=== PATIENT | male | born 1990 | race Caucasian/White ===

== ENCOUNTER 2024-08-28 06:21 | Emergency (ER) | payer SELFPAY ==
[~2024-08-28] VITALS: Ht 188 cm; Wt 104.5 kg
--- NOTE | 2024-08-28 06:27 | ECG ---
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
[2024-08-28] MEDS ORDERED: DexAMETHasone SOD PHOS 10MG/1ML VIAL INJ PO ONE (07:00)
--- NOTE | 2024-08-28 07:00 | ED.PDOC ---
SOB-HPI HPI Comments 34Y M with PMHx asthma presents to ED via EMS for chief complaint SOB x this morning with cough x1week. Pt denies chest pain, abd pain, and n/v/d. Pt states everyone is sick at home. Pt attempted to use Albuterol inhaler this morning but the medication ran out. Upon EMS arrival on scene, SpO2 was 74% on RA. After a breathing treatment was administered, SpO2 increased to 87%. Upon ED arrival, SpO2 97% on 10L O2 via NRB. No other symptoms/history reported. Chief Complaint: Shortness of Breath Time Seen by MD: 06:35 Reviewed notes: Nurses Notes, Roving Machine Operator Notes, Medications, Allergies Information Source: Patient, Emergency Med Personnel Mode of Arrival: EMS Brought in by: EMS Severity: Moderate Timing: Hours Duration: Since onset Context: At Rest PE Risk Factors: None History of: Asthma Prehospital treatment: Breathing Tx, Oxygen Modifying Factors: Nothing Associated Signs and Symptoms: Cough Past Medical History PAST MEDICAL HISTORY: Asthma Surgical History: Denies all surgeries Family History Family History: Unknown Social History Smoker: Non-Smoker Alcohol: Denies ETOH Use Drugs: Denies Drug Use Lives In: Home Constitutional: denies: chills, diaphoresis, fatigue, fever, malaise, sweats, weakness, others EENTM: denies: blurred vision, double vision, ear bleeding, ear discharge, ear drainage, ear pain, ear ringing, eye pain, eye redness, hearing loss, mouth pain, mouth swelling, nasal discharge, nose bleeding, nose congestion, nose pain, photophobia, tearing, throat pain, throat swelling, voice changes, others Respiratory: reports: cough, shortness of breath, wheezing; denies: hemoptysis, orthopnea, SOB at rest, SOB with excertion, stridor, others Cardiovascular: denies: chest pain, dizzy spells, diaphoresis, Dyspnea on exertion, edema, irregular heart beat, left arm pain, lightheadedness, palpitations, PND, syncope, others Gastrointestinal: denies: abdomen distended, abdominal pain, blood streaked bowels, constipated, diarrhea, dysphagia, difficulty swallowing, hematemesis, melena, nausea, poor appetite, poor fluid intake, rectal bleeding, rectal pain, vomiting, others Genitourinary: denies: burning, dysuria, flank pain, frequency, hematuria, incontinence, penile discharge, penile sore, pain, testicle pain, testicle swelling, urgency, others Neurological: denies: dizziness, fainting, headache, left sided numbness, left sided weakness, numbness, paresthesia, pre-existing deficit, right sided numbness, right sided weakness, seizure, speech problems, tingling, tremors, weakness, others Musculoskeletal: denies: back pain, gout, joint pain, joint swelling, muscle pain, muscle stiffness, neck pain, others Integumetry: denies: bruises, change in color, change in hair/nails, dryness, laceration, lesions, lumps, rash, wounds, others Allergic/Immunocompromised: denies: Difficulty Healing, Frequent Infections, Hives, Itching, others Hematologic/Lymphatic: denies: anemia, blood clots, easy bleeding, easy bruising, swollen glands, others Endocrine: denies: excessive hunger, excessive sweating, excessive thirst, excessive urination, flushing, intolerance to cold, intolerance to heat, unexplained weight gain, unexplained weight loss, others Psychiatric: denies: anxiety, bipolar disorder, depression, hopeless, panic disorder, schizophrenia, sleepless, suicidal, others All Other Systems: Reviewed and Negative Physical Exam General Appearance: No Apparent Distress, Normal HEENT: Normal ENT Inspection, Pharynx Normal, TMs Normal Neck: Full Range of Motion, Non-Tender, Normal, Normal Inspection Respiratory: Chest Non-Tender, Lungs Clear, No Accessory Muscle Use, No Respiratory Distress, Normal Breath Sounds Cardiovascular: No Edema, No JVD, No Murmur, No Gallop, Normal Peripheral Pulses, Regular Rate/Rhythm Breast Exam: Deferred Gastrointestinal: No Organomegaly, Non Tender, No Pulsatile Mass, Normal Bowel Sounds, Soft Genitalia: Deferred Pelvic: Deferred Rectal: Deferred Extremities: No calf tenderness, Normal capillary refill, Normal inspection, Normal range of motion, Non-tender, No pedal edema Musculoskeletal : Apperance: Normal Neurologic: Alert, assurance manager II-XII nml as Tested, No Motor Deficits, Normal Affect, Normal Mood, No Sensory Deficits Cerebellar Function: NOT DONE Reflexes: NOT DONE Skin: Dry, Normal Color, Warm Lymphatic: No Adenopathy Was a procedure done? Was a procedure done?: No Differential Dx Differential Diagnosis: Asthma, Pneumonia, URI X-Ray, Labs, Meds, VS Vital Signs Date Time Temp Pulse Resp B/P (MAP) Pulse Ox O2 Delivery O2 Flow Rate FiO2 08/28/24 08:05 13 13 94 Nasal Cannula* 2 08/28/24 08:05 98.5 103 13 117/85 (96) 94 98.5 08/28/24 07:10 16 94 Nasal Cannula* 2 08/28/24 06:27 98.6 115 30 128/80 (96) 97 98.6 08/28/24 06:21 106 Lab Test 08/28/24 08:02 08/28/24 07:49 08/28/24 07:03 Range/Units Urine Color Colorless Yellow Urine Clarity Clear Clear Urine pH 5.5 5.0-9.0 Urine Specific [place] 1.010 1.001-1.035 Urine Protein Negative Negative Urine Ketones Negative Negative Urine Blood Negative Negative /uL Urine Nitrite Negative Negative Urine Bilirubin Negative Negative Urine Urobilinogen Normal Negative mg/dL Urine Leukocyte Esterase Negative Negative /uL Urine RBC <1 0 - 3 /hpf Urine Microscopic WBC < 1 0-3 /HPF Urine Squamous Epithelial Cells None seen <5 /hpf Urine Bacteria None seen None Seen /hpf Urine Glucose Normal Normal mg/dL Influenza Type A Antigen Negative Negative Influenza Type B Antigen Negative Negative SARS-CoV-2 Antigen (Rapid) Negative NEGATIVE White Blood Count 13.3 H 4.4-10.8 10^3/uL Red Blood Count 5.10 4.5-5.90 10^6/uL Hemoglobin 16.2 13.5-17.5 g/dL Hematocrit 45.6 41.0-53.0 % Mean Corpuscular Volume 89.3 80.0-100.0 fL Mean Corpuscular Hemoglobin 31.7 28.0-32.0 pg Mean Corpuscular Hemoglobin Concent 35.5 32.0-36.0 g/dL Red Cell Distribution Width 12.8 11.8-14.3 % Platelet Count 242 140-450 10^3/uL Mean Platelet Volume 8.5 6.9-10.8 fL Neutrophils (%) (Auto) 37.0-80.0 % Lymphocytes (%) (Auto) 10.0-50.0 % Monocytes (%) (Auto) 0.0-12.0 % Basophils (%) (Auto) 0.0-2.0 % Neutrophils # (Auto) 1.6-8.6 10 ^3/uL Lymphocytes # (Auto) 0.4-5.4 10 ^3/uL Monocytes # (Auto) 0-1.3 10 ^3/uL Differential Total Cells Counted 100.0 100 Neutrophils % (Manual) 62 37.0-80.0 Band Neutrophils % (Manual) 0 Lymphocytes % (Manual) 17 10.0-50.0 Monocytes % (Manual) 3 0-12 Eosinophils % (Manual) 18 H 0-7 Basophils % (Manual) 0 0.0-2.0 Metamyelocytes % (manual) 0 Myelocytes % (Manual) 0 Promyelocytes % (Manual) 0 Blast Cells % (Manual) 0 Reactive Lymphocytes 0 Platelet Estimate Adequate Sodium Level 137 136-145 mmol/L Potassium Level 4.3 3.5-5.1 mmol/L Chloride Level 104 98-107 mmol/L Carbon Dioxide Level 25 20-31 mmol/L Anion Gap 8 5-15 Blood Urea Nitrogen 13 9-23 mg/dL Creatinine 0.96 0.700-1.30 mg/dL Glomerular Filtration Rate Calc 106 >90 mL/min BUN/Creatinine Ratio 13.5 10.0-20.0 Serum Glucose 108 H 74-106 mg/dL Calcium Level 9.5 8.7-10.4 mg/dL Current Medications Medications (Trade) Dose Ordered Sig/[place] Route Start Time Stop Time Status Last Admin Albuterol (Ventolin Medneb) 5 mg ONCE ONCE NEB 08/28/24 07:00 08/28/24 07:01 DC 08/28/24 07:09 Ipratropium [place] (Atrovent Medneb) 0.5 mg ONCE ONCE NEB 08/28/24 07:00 08/28/24 07:01 DC 08/28/24 07:09 Dexamethasone Sodium Phosphate (Decadron Injection) 10 mg ONCE ONCE IV 08/28/24 08:00 08/28/24 08:01 DC 08/28/24 07:[address] [address] Ph: [phone] DIAGNOSTIC IMAGING Diagnostic Imaging Report : [id number] Signed PATIENT: ERIKA PURVIS ACCT: [id number] UNIT: [id number] : 1990 LOC: ER ROOM / BED: / AGE / SEX: 34 / M ADM STATUS: REG ER SERVICE ORDERING PHYSICIAN: FERMIN NOGUEIRA MD PROCEDURE(s): CXRP - CHEST PORTABLE REASON: sob ORDER NUMBER(s): [id number], ACCESSION NUMBER(s): [id number] EXAM: XR Chest, 1 View CLINICAL INDICATION: sob TECHNIQUE: Frontal view of the chest. COMPARISON: None FINDINGS: LUNGS AND PLEURAL SPACES: Unremarkable. No consolidation. No pneumothorax. HEART: Unremarkable. No cardiomegaly. MEDIASTINUM: Unremarkable. Normal mediastinal contour. BONES/JOINTS: Unremarkable. No acute fracture. OTHER FINDINGS: . None. IMPRESSION: No acute cardiopulmonary process. ATED BY: ERIKA WILSON MD DICTATED DATE/TIME: 08/28/24710 SIGNED BY: ERIKA WILSON MD SIGNED DATE/TIME: 08/28/24710 CC: Time of 1ST Reevaluation: 07:05 Reevaluation 1ST: Unchanged Patient Education/Counseling: Diagnosis, Treatment Family Education/Counseling: No Family Present Departure 1 Departure Time of Disposition: 09:42 (Patient had an acute asthma exacerbation. He is now breathing comfortably on room air with clear lungs. We will discharge patient home with outpatient follow up) Impression: Primary Impression: Asthma exacerbation Qualified Codes: J45.21 - Mild intermittent asthma with (acute) exacerbation Disposition: 01 HOME / SELF CARE / HOMELESS Condition: Stable Additional Instructions: You likely had a asthma exacerbation. You should use your inhaler as directed. Your prescribed steroids. Please take as directed. It is important to follow up with the regular doctor within 1 week. If your symptoms worsen or you have any other concerns please return to the emergency room. e-Prescriptions Prednisone (Prednisone) 20 Mg Tab 40 MG PO DAILY for 5 Days, #10 MG Prov: FERMIN NOGUEIRA MD 08/28/24 Discharged With: Self Critical Care Note Critical Care Time?: No Stability Stability form required: No Heart Score Heart Score: Heart Score Response (Comments) Value History N/A 0 EKG N/A 0 Age N/A 0 Risk Factors N/A 0 Troponin N/A 0 Total 0 I personally scribed for FERMNI NOGUEIRA MD ([email or web address]) on 08/28/24 at 07:00. Electronically submitted by Eden Velazco ([facility]). I personally scribed for FERMIN NOGUEIRA MD ([email or web address]) on 08/28/24 at 07:20. Electronically submitted by Eden Velazco ([email or web address]). FERMIN NOGUEIRA MD Aug 28, 2024 07:00
[2024-08-28] MEDS: IPRATROPIUM BROM 0.5 MG/2.5ML INH SOL NEB ONE (07:09)
[2024-08-28] MEDS: ALBUTEROL SULF 2.5 MG/0.5ML(0.5%) NEB SOLN NEB ONE (07:09)
--- NOTE | 2024-08-28 07:13 | DVH ---
EXAM: XR Chest, 1 View CLINICAL INDICATION: sob TECHNIQUE: Frontal view of the chest. COMPARISON: None FINDINGS: LUNGS AND PLEURAL SPACES: Unremarkable. No consolidation. No pneumothorax. HEART: Unremarkable. No cardiomegaly. MEDIASTINUM: Unremarkable. Normal mediastinal contour. BONES/JOINTS: Unremarkable. No acute fracture. OTHER FINDINGS: . None. IMPRESSION: No acute cardiopulmonary process.
[2024-08-28] MEDS: DexAMETHasone SOD PHOS 10MG/1ML VIAL INJ IV ONE (07:51)
[2024-08-28 07:53] LABS: Chloride 104 mmol/L (98-107); Potassium 4.3 mmol/L (3.5-5.1); Sodium 137 mmol/L (136-145)
[2024-08-28 07:54] LABS: Anion Gap 8 (5-15); Calcium 9.5 mg/dL (8.7-10.4); Carbon Dioxide 25 mmol/L (20-31); Hematocrit 45.6 % (41.0-53.0); Hemoglobin 16.2 g/dL (13.5-17.5); Mean Corpuscular Hemoglobin 31.7 pg (28.0-32.0); Mean Corpuscular Hgb Conc. 35.5 g/dL (32.0-36.0); Mean Corpuscular Volume 89.3 fL (80.0-100.0); Platelet Count (auto) 242 10^3/uL (140-450); Red Cell Distribution Width 12.8 % (11.8-14.3); White Blood Cell 13.3 10^3/uL (4.4-10.8)
[2024-08-28 07:59] LABS: BUN/Creatinine Ratio 13.5 (10.0-20.0); Blood Urea Nitrogen 13 mg/dL (9-23)
[2024-08-28 08:00] LABS: Glucose 108 mg/dL (74-106)
[2024-08-28 08:05] VITALS: PULSE 13; RESP 13; O2SAT 94
[2024-08-28 08:14] LABS: Band Neutrophils % (manual) 0; Basophils % (manual) 0 (0.0-2.0); Blast Cells 0; Metamyelocytes % 0; Myelocytes % 0; Promyelocytes % 0; Reactive Lymphocytes 0
[2024-08-28 08:20] LABS: Urine Bacteria None Seen /hpf (None Seen)
[2024-08-28 08:23] LABS: COVID19 ANTIGEN SOFIA FIA NEGATIVE (NEGATIVE); Rapid Influenza A Negative (Negative); Rapid Influenza B Negative (Negative)
[2024-08-28 08:41] LABS: Urine Blood Negative /uL (Negative); Urine Clarity Clear (Clear); Urine Color Colorless (Yellow); Urine Protein, UAD Negative (Negative); Urine Squamous Epithelial Cell None Seen /hpf (<5); Urine Urobilinogen Normal (Negative); Urine WBC < 1 /HPF (0-3); Urine pH 5.5 (5.0-9.0)
[2024-08-28 09:12] LABS: Eosinophils % (manual) 18 (0-7); Lymphocytes % (manual) 17 (10.0-50.0); Monocytes % (manual) 3 (0-12); Platelet Estimate Adequate
[2024-08-28] MEDS ORDERED: PRED20TA2 PO (09:43)
[2024-08-28 10:00] VITALS: PULSE 91
[2024-08-28 10:10] VITALS: BP 131/83; RESP 12; TEMP 98.5; O2SAT 93
== END 2024-08-28 10:49 | disposition home or self-care (01) ==
LOC: ER 06:21 → EDBD 06:21 → ER 10:49
DX: J45.901 Unspecified asthma with (acute) exacerbation (principal); Z20.822 Contact with and (suspected) exposure to COVID-19
CPT/HCPCS: 36415; 71045; 80048; 81001; 85007; 85027; 87426; 87804; 93005; 94640; 96374; 99285; J1100

== ENCOUNTER 2024-10-22 09:26 | Inpatient (IN) | payer MEDICAID, OTHER ==
[2024-10-22] VITALS (28 sets, daily range): BP systolic 108–174; BP diastolic 54–123; PULSE 97–135; RESP 18–25; TEMP 98.6–98.8; O2SAT 92–97
[~2024-10-22] VITALS: Ht 188 cm; Wt 101.4 kg
[~2024-10-22 09:26] MED LIST: PRED20TA2 PO
--- NOTE | 2024-10-22 09:34 | ED.PDOC ---
History of Present Illness HPI Comments 34-year-old male brought by paramedics because of shortness a breath. Patient states that he has been having shortness a breath for a week progressively getting worse. His brother got inhaler from [id number] for which he tried without any help. Patient states that he is unable to get air into his lungs without using his stomach. Last time he felt like this was in August prior to that has been 26 years. Denies use of cigarettes. Denies any other past medical history. Time Seen by MD: 09:28 Reviewed Notes: Nurses Notes, Medications, Allergies Allergies: Uncoded Allergies: EGGS (Allergy, Unknown, 08/28/24) Home Meds Active Scripts Prednisone (Prednisone) 20 Mg Tab, 40 MG PO DAILY for 5 Days, #10 MG Prov:FERMIN NOGUEIRA MD 08/28/24 Information Source: Patient, Emergency Med Personnel Mode of Arrival: EMS Severity: Moderate Timing: Days Duration: Since onset Past Medical History PAST MEDICAL HISTORY: Asthma Surgical History: Denies all surgeries Family History Family History: Unknown Social History Smoker: Non-Smoker Alcohol: Denies ETOH Use Drugs: Denies Drug Use Lives In: Home Constitutional: denies: chills, diaphoresis, fatigue, fever, malaise, sweats, weakness, others EENTM: denies: blurred vision, double vision, ear bleeding, ear discharge, ear drainage, ear pain, ear ringing, eye pain, eye redness, hearing loss, mouth pain, mouth swelling, nasal discharge, nose bleeding, nose congestion, nose pain, photophobia, tearing, throat pain, throat swelling, voice changes, others Respiratory: reports: shortness of breath; denies: cough, hemoptysis, orthopnea, SOB at rest, SOB with excertion, stridor, wheezing, others Cardiovascular: denies: chest pain, dizzy spells, diaphoresis, Dyspnea on exertion, edema, irregular heart beat, left arm pain, lightheadedness, palpitations, PND, syncope, others Gastrointestinal: denies: abdomen distended, abdominal pain, blood streaked bowels, constipated, diarrhea, dysphagia, difficulty swallowing, hematemesis, melena, nausea, poor appetite, poor fluid intake, rectal bleeding, rectal pain, vomiting, others Genitourinary: denies: burning, dysuria, flank pain, frequency, hematuria, incontinence, penile discharge, penile sore, pain, testicle pain, testicle swelling, urgency, others Neurological: denies: dizziness, fainting, headache, left sided numbness, left sided weakness, numbness, paresthesia, pre-existing deficit, right sided numbness, right sided weakness, seizure, speech problems, tingling, tremors, weakness, others Musculoskeletal: denies: back pain, gout, joint pain, joint swelling, muscle pain, muscle stiffness, neck pain, others Integumetry: denies: bruises, change in color, change in hair/nails, dryness, laceration, lesions, lumps, rash, wounds, others Allergic/Immunocompromised: denies: Difficulty Healing, Frequent Infections, Hives, Itching, others Hematologic/Lymphatic: denies: anemia, blood clots, easy bleeding, easy bruising, swollen glands, others Endocrine: denies: excessive hunger, excessive sweating, excessive thirst, excessive urination, flushing, intolerance to cold, intolerance to heat, unexplained weight gain, unexplained weight loss, others Psychiatric: denies: anxiety, bipolar disorder, depression, hopeless, panic disorder, schizophrenia, sleepless, suicidal, others Physical Exam General Appearance: Moderate Distress HEENT: Normal ENT Inspection, Pharynx Normal, TMs Normal Neck: Full Range of Motion, Non-Tender, Normal, Normal Inspection Respiratory: Accessory Muscle Use, Respiratory Distress, Wheezing Cardiovascular: No Edema, No JVD, No Murmur, No Gallop, Normal Peripheral Pulses, Regular Rate/Rhythm Breast Exam: Deferred Gastrointestinal: No Organomegaly, Non Tender, No Pulsatile Mass, Normal Bowel Sounds, Soft Genitalia: Deferred Pelvic: Deferred Rectal: Deferred Extremities: No calf tenderness, Normal capillary refill, Normal inspection, Normal range of motion, Non-tender, No pedal edema Musculoskeletal : Apperance: Normal Neurologic: Alert, punch molder II-XII nml as Tested, No Motor Deficits, Normal Affect, Normal Mood, No Sensory Deficits Cerebellar Function: NOT DONE Reflexes: NOT DONE Skin: Dry, Normal Color, Warm Peripheral Pulses: 3+ Radial (R), 3+ Radial (L) Lymphatic: No Adenopathy Was a procedure done? 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: Attending Physician Indication: Hypotension, CVP monitoring Room prepared for procedure: Yes Keno Attendant performed hand hygien: Yes Maximal sterile barrier precau: Mask/Eye shield, Sterile gown Skin Preparation: Chlorhexidine gluconate, Providine iodine Skin preparation completely dr: Yes Insertion site: Right, Internal jugular Central line catheter type: Fdl-[id number]-dkf dialysis Number of lumens: 3 Antiseptic ointment applied to: Yes Post Assessment: Chest X-Ray Intubation Indication: Respiratory Insufficiency Prep: Preoxygenation Pretreated with: Analgesia Medicated with: Vecuronium Intubation Approach: Orotracheal Intubation size: cm (8) EKG EKG : Pulse Rate (adult): 121 Cardiac Rhythm: ST Differential Dx Considerations may include: Asthma exacerbation X-Ray, Labs, Meds, VS Vital Signs Date Time Temp Pulse Resp B/P (MAP) Pulse Ox O2 Delivery O2 Flow Rate FiO2 10/22/24 10:45 176/126 10/22/24 10:43 135 18 174/123 (140) 97 100 10/22/24 10:42 206/95 10/22/24 09:53 24 96 Simple Mask* 8 60 10/22/24 09:42 98.9 120 24 120/81 (94) 97 98.9 10/22/24 09:34 121 10/22/24 09:31 121 Lab Test 10/22/24 11:02 10/22/24 09:45 Range/Units White Blood Count Pending Red Blood Count Pending Hemoglobin Pending Hematocrit Pending Mean Corpuscular Volume Pending Mean Corpuscular Hemoglobin Pending Mean Corpuscular Hemoglobin Concent Pending Red Cell Distribution Width Pending Platelet Count Pending Mean Platelet Volume Pending Neutrophils (%) (Auto) Pending Lymphocytes (%) (Auto) Pending Monocytes (%) (Auto) Pending Basophils (%) (Auto) Pending Neutrophils # (Auto) Pending Lymphocytes # (Auto) Pending Monocytes # (Auto) Pending Sodium Level Pending Potassium Level Pending Chloride Level Pending Carbon Dioxide Level Pending Anion Gap Pending Blood Urea Nitrogen Pending Creatinine Pending Glomerular Filtration Rate Calc Pending BUN/Creatinine Ratio Pending Serum Glucose Pending Lactic Acid Level Pending Calcium Level Pending Troponin I High Sensitivity Pending 5 </=54 ng/L Current Medications Medications (Trade) Dose Ordered Sig/[place] Route Start Time Stop Time Status Last Admin Magnesium Sulfate/ Dextrose 100 ml @ 100 mls/hr ONCE ONCE IV 10/22/24 09:45 10/22/24 10:44 DC 10/22/24 10:22 Albuterol (Ventolin Medneb) 5 mg ONCE ONCE NEB 10/22/24 09:45 10/22/24 09:46 DC 10/22/24 09:53 Ipratropium [place] (Atrovent Medneb) 0.5 mg ONCE ONCE NEB 10/22/24 09:45 10/22/24 09:46 DC 10/22/24 09:53 Methylprednisolone Sodium Succinate (Solu Medrol) 125 mg ONCE ONCE IV 10/22/24 09:45 10/22/24 09:46 DC 10/22/24 10:22 Midazolam HCl 50 ml @ 1 mls/hr Q24H IV 10/22/24 11:00 10/22/24 10:45 Etomidate 20 mg ONCE ONCE IV 10/22/24 11:00 10/22/24 11:01 DC 10/22/24 10:41 Rocuronium [place] 100 mg ONCE ONCE IV 10/22/24 11:00 10/22/24 11:01 DC 10/22/24 10:42 Patient alert. Complaining of shortness a breath. History of asthma. Placed on oxygen. Was given breathing treatment in the field. Started steroid in the ER. Was given breathing treatment in the ER. He is using his accessory muscles. Explained to the patient the treatment plan. Continue monitoring. After watching patient has been deteriorating pain Using accessory muscles. Had to intubate the patient. Explained to the patient prior to intubation. Possible sepsis. Was given Rocephin. Was given azithromycin. Time of 1ST Reevaluation: :33 Reevaluation 1ST: Unchanged Patient Education/Counseling: Diagnosis, Treatment, Prognosis Family Education/Counseling: No Family Present Sepsis Sepsis Reasesment Focused Exam Orders: Laboratory Tests 10/22/24 11:02: Departure 1 Departure Time of Disposition: : Impression: Primary Impression: Acute respiratory failure Qualified Codes: J96.01 - Acute respiratory failure with hypoxia Additional Impression: Asthma exacerbation Qualified Codes: J45.41 - Moderate persistent asthma with (acute) exacerbation Disposition: ADMITTED INPATIENT Admit to: Med Surg Condition: Guarded Critical Care Note Critical Care Time?: Yes (90 min-critical care time only) Critical care comment: Breathing treatment placed on oxygen Stability Stability form required: No Heart Score Heart Score: Heart Score Response (Comments) Value History Slightly Suspicious 0 EKG Normal 0 Age <45 0 Risk Factors No known risk factors 0 Troponin Normal limit 0 Total 0 IMTIAZ STONER MD October 22, 2024 09:34
--- NOTE | 2024-10-22 09:36 | ECG ---
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
[2024-10-22] MEDS: IPRATROPIUM BROM 0.5 MG/2.5ML INH SOL NEB ONE (09:53)
[2024-10-22] MEDS: ALBUTEROL SULF 2.5 MG/0.5ML(0.5%) NEB SOLN NEB ONE (09:53)
[2024-10-22] MEDS: MAGNESIUM SULFATE 1GM/100ML 100 ML IV ONE (10:22)
[2024-10-22] MEDS: methylPREDNISolone SOD SUCC 125 MG/2 ML VL IV ONE (10:22)
[2024-10-22] MEDS: ETOMIDATE (2MG/ML) 20ML VIAL IV ONE ×2 (10:41→10:51)
[2024-10-22] MEDS: ROCURONIUM 10MG/ML 10ML VIAL IV ONE ×3 (10:42→13:17)
[2024-10-22] MEDS: MIDAZOLAM DRIP 50 mg/50mL 50 ML IV SCH (10:45)
[2024-10-22] MEDS: MIDAZOLAM DRIP 50 mg/50mL 50 ML IV ONE ×4 (10:52→23:34)
[2024-10-22 11:36] LABS: Basophils # (auto) 0 10 ^3/uL (0-0.2); Basophils % (auto) 0.3 % (0.0-2.0); Eosinophils # (auto) 2.1 10 ^3/uL (0-0.8); Eosinophils % (auto) 11.9 % (0.0-7.0); Hematocrit 49.7 % (41.0-53.0); Hemoglobin 16.9 g/dL (13.5-17.5); Lymphocytes # (auto) 4.4 10 ^3/uL (0.4-5.4); Lymphocytes % (auto) 24.7 % (10.0-50.0); Mean Corpuscular Hemoglobin 30.6 pg (28.0-32.0); Mean Corpuscular Volume 90.1 fL (80.0-100.0); Monocytes # (auto) 0.7 10 ^3/uL (0-1.3); Neutrophils # (auto) 10.5 10 ^3/uL (1.6-8.6); Neutrophils % (auto) 59.1 % (37.0-80.0); Nucleated Red Blood Cells % 0.1 %; Platelet Count (auto) 266 10^3/uL (140-450); Red Blood Cells 5.52 10^6/uL (4.5-5.90); White Blood Cell 17.7 10^3/uL (4.4-10.8)
[2024-10-22] MEDS: PROPOFOL 100 ML IV SCH (11:45)
[2024-10-22 11:46] LABS: Chloride 105 mmol/L (98-107); Potassium 4.5 mmol/L (3.5-5.1); Sodium 141 mmol/L (136-145)
[2024-10-22 11:47] LABS: Anion Gap 9 (5-15); Calcium 9.2 mg/dL (8.7-10.4); Carbon Dioxide 27 mmol/L (20-31)
[2024-10-22] MEDS: PROPOFOL 100 ML IV ONE ×4 (11:50→22:22)
[2024-10-22 11:52] LABS: BUN/Creatinine Ratio 7.4 (10.0-20.0)
[2024-10-22 11:54] LABS: Blood Urea Nitrogen 7 mg/dL (9-23); Glucose 145 mg/dL (74-106)
--- NOTE | 2024-10-22 12:16 | DVH ---
XY CHEST PORTABLE, HISTORY: sob COMPARISON: XY CHEST PORTABLE on DOS: 08/28/24 XY CHEST PORTABLE on DOS: 08/28/24 TECHNICAL DATA: 1 view of the chest was obtained. FINDINGS: Lines and tubes: ET in the mid thoracic trachea, NG crosses midline, right CVC seen in the SVC. Cardiomediastinal silhouette: normal Pulmonary vasculature: normal Lung expansion: normal Lung airspace: normal Lung interstitium: normal Pleura: normal Pneumothorax: no Bones: Unremarkable Other: no IMPRESSION: ET in the mid thoracic trachea, NG crosses midline (can be advanced 8 cm), right CVC seen in the SVC.
[2024-10-22 12:17] LABS: Base Excess -6.2 mmol/L (-2.0-3.0)
[2024-10-22] MEDS: AZITHROMYCIN 500MG/ 250ML 250 ML IV ONE (12:43)
[2024-10-22] MEDS: cefTRIAXone 1GM/50ML D5W 50 ML IV ONE (12:44)
[2024-10-22] MEDS: SODIUM CHLORIDE 0.9% 1,000 ML IV ONE ×2 (12:44)
[2024-10-22] MEDS ORDERED: ONDANSETRON HCL 4 MG/2 ML VIAL IV PRN (13:30)
[2024-10-22] MEDS ORDERED: DOCUSATE SOD 100 MG CAP PO PRN (13:30)
[2024-10-22] MEDS ORDERED: ACETAMINOPHEN 325 MG TAB PO PRN (13:30)
--- NOTE | 2024-10-22 13:45 | DVHHP2 ---
History of Present Illness Reason for Visit: Shortness of breath History of Present Illness Sae Tidwell is a 34-year-old male with past medical history of asthma, who was brought in by EMS for shortness of breath. When patient arrived to the ER he was sitting the in the treatment area receiving a breathing treatment. He was having increased work of breathing, using accessory muscles, tripoding, and diaphoretic. He was placed on a non-rebreather mask, taken to bed, and was then intubated shortly after arriving in the bed. Family states that the patient had childhood asthma, but has not had a problem with his asthma for over 20 years until recently. In August the entire family got a cold. The sister states it hit him and her younger brother the worst. The patient was seen here in August for shortness of breath. He was given breathing treatments and prescriptions and sent home. She states he was doing better for a while but then his shortness of breath worsened. She also stated that he doesn't take the best care of him self and that he is a heavy whiskey drinker. She states he drinks at least 3 x week. Sometimes it is just a couple drinks and other times it is an entire bottle. Pulmonary: Asthma Past Surgical History: None Smoke: No ALCOHOL: heavy Drugs: None Lives: with Family Domestic Violence: Neg Review of Systems Constitutional: No: Fever, Chills, Sweats, Weakness, Malaise, Other Eyes: No: Pain, Vision change, Conjunctivae inflammation, Eyelid inflammation, Other, Redness ENT: No: Ear pain, Ear discharge, Nose pain, Nose discharge, Nose congestion, Mouth pain, Mouth swelling, Throat pain, Throat swelling, Other Respiratory: Cough, Shortness of breath, SOB with excertion, Wheezing; No: Dry, Hemoptysis, Pleuritic Pain, Sputum, Wheezing, Other Cardiovascular: No: Chest Pain, Palpitations, Orthopnea, Paroxysmal Noc. Dyspnea, Edema, Lt Headedness, Other Gastrointestinal: No: Nausea, Vomiting, Abdominal Pain, Diarrhea, Constipation, Melena, Hematochezia, Other Genitourinary: No Dysuria, No Frequency, No Incontinence, No Hematuria, No Retention, No Other Musculoskeletal: No: other, neck pain, shoulder pain, arm pain, back pain, hand pain, leg pain, foot pain Skin: No: Rash, Lesions, Jaundice, Bruising, Other Neurological: No: Weakness, Numbness, Incoordination, Change in speech, Confusion, Seizures, Other Allergies: Uncoded Allergies: EGGS (Allergy, Unknown, 08/28/24) Medications Current Medications Medications Dose Ordered Sig/Chencho Route Start Time Stop Time Status Last Admin Dose Admin Midazolam HCl 50 ml @ 1 mls/hr Q24H IV 10/22/24 11:00 10/22/24 10:45 1 MLS/HR Propofol 100 ml @ 3.12 mls/hr Q24H IV 10/22/24 11:45 10/22/24 11:45 3.12 MLS/HR Ondansetron HCl 4 mg Q4HP PRN IV 10/22/24 13:30 UNV Docusate Sodium 100 mg BIDPRN PRN PO 10/22/24 13:30 UNV Acetaminophen 650 mg Q6HP PRN PO 10/22/24 13:30 UNV Ipratropium [place] 0.5 mg Q6HR NEB 10/22/24 18:00 UNV Albuterol 2.5 mg Q6HR NEB 10/22/24 18:00 UNV Exam Vital Signs Vital Signs Date Time Temp Pulse Resp B/P (MAP) Pulse Ox O2 Delivery O2 Flow Rate FiO2 10/22/24 13:17 130/69 10/22/24 12:00 116 10/22/24 10:43 18 97 100 10/22/24 09:53 Simple Mask* 8 10/22/24 09:42 98.9 98.9 General Appearance: Other (Intubated and sedated) Respiratory: Other (Intubated, tight and wheezing) Cardiovascular: Other (ST) Abdominal: Normal bowel sounds, Soft Extremities: No clubbing, No cyanosis, Normal pulses Skin: No rashes, No breakdown, No significant lesion Neuro: Other (sedated) Labs/Xrays Labs Test 10/22/24 12:52 10/22/24 12:12 10/22/24 11:02 Range/Units Blood Gas Specimen Type Arterial Blood Gas Sample Site Left radial Blood Gas Patient Temperature 37.0 Arterial Blood Date Drawn [id number] Arterial Blood pH 7.147 *L 7.350-7.450 Arterial Blood Partial Pressure CO2 74.4 *H 35.0-48.0 mmHg Arterial Blood Partial Pressure O2 > 533.6 *H 83.0-108.0 mmHg Arterial Blood HCO3 25.2 21.0-28.0 mmol/L Arterial Blood Oxygen Saturation 99.9 H 94.0-98.0 % Arterial Blood Base Excess -6.2 L -2.0-3.0 mmol/L Arterial Blood Oxyhemoglobin 98.6 H 94.0-98.0 % Arterial Blood Carboxyhemoglobin 0.3 L 0.5-1.5 % Arterial Blood Methemoglobin 1.0 0.0-1.5 % Zuhair Test Modified Blood Gas Total Hemoglobin 18.60 *H 13.5-17.5 g/dL Blood Gas Set Respiration Rate 18.0 Blood Gas Modality Vent - ac FiO2 % 100.0 Blood Gas Tidal Volume 600.0 Blood Gas PEEP or CPAP 5.0 Blood Gas Critical Value Read Back Yes Blood Gas Notified Whom nellie Ochoa md Blood Gas Notified Time [id number] Blood Gas Notified By Renyn segal i. White Blood Count 17.7 H 4.4-10.8 10^3/uL Red Blood Count 5.52 4.5-5.90 10^6/uL Hemoglobin 16.9 13.5-17.5 g/dL Hematocrit 49.7 41.0-53.0 % Mean Corpuscular Volume 90.1 80.0-100.0 fL Mean Corpuscular Hemoglobin 30.6 28.0-32.0 pg Mean Corpuscular Hemoglobin Concent 34.0 32.0-36.0 g/dL Red Cell Distribution Width 13.0 11.8-14.3 % Platelet Count 266 140-450 10^3/uL Mean Platelet Volume 8.2 6.9-10.8 fL Neutrophils (%) (Auto) 59.1 37.0-80.0 % Lymphocytes (%) (Auto) 24.7 10.0-50.0 % Monocytes (%) (Auto) 4.0 0.0-12.0 % Eosinophils (%) (Auto) 11.9 H 0.0-7.0 % Basophils (%) (Auto) 0.3 0.0-2.0 % Neutrophils # (Auto) 10.5 H 1.6-8.6 10 ^3/uL Lymphocytes # (Auto) 4.4 0.4-5.4 10 ^3/uL Monocytes # (Auto) 0.7 0-1.3 10 ^3/uL Eosinophils # (Auto) 2.1 H 0-0.8 10 ^3/uL Basophils # (Auto) 0 0-0.2 10 ^3/uL Nucleated Red Blood Cells 0.1 % Sodium Level 141 136-145 mmol/L Potassium Level 4.5 3.5-5.1 mmol/L Chloride Level 105 98-107 mmol/L Carbon Dioxide Level 27 20-31 mmol/L Anion Gap 9 5-15 Blood Urea Nitrogen 7 L 9-23 mg/dL Creatinine 0.95 0.700-1.30 mg/dL Glomerular Filtration Rate Calc 108 >90 mL/min BUN/Creatinine Ratio 7.4 L 10.0-20.0 Serum Glucose 145 H 74-106 mg/dL Lactic Acid Level 1.9 0.4-2.0 mmol/L Calcium Level 9.2 8.7-10.4 mg/dL XY CHEST PORTABLE, FINDINGS: Lines and tubes: ET in the mid thoracic trachea, NG crosses midline, right CVC seen in the SVC. Cardiomediastinal silhouette: normal Pulmonary vasculature: normal Lung expansion: normal Lung airspace: normal Lung interstitium: normal Pleura: normal Pneumothorax: no Bones: Unremarkable Other: no IMPRESSION: ET in the mid thoracic trachea, NG crosses midline (can be advanced 8 cm), right CVC seen in the SVC. Assessment/Plan Assessment/Plan Assessment: Asthma exacerbation, Acute respiratory failure, ETOH dependance, Leukocytosis, Plan: Admit to ICU, Mechanical ventilation, Pulmonology consult, IV antibiotics, Versed and propofol for sedation as needed, COVID and Influenza A&B swab, UDS, Serum alcohol level, Portable x-ray in am, ABG in am, CT chest, Plan discussed with: Patient, Other (Sister) My Orders Orders - RYAN SAENZ RECORDS TECHNICIAN Procedure Category Date Status Time Ventilator Orders RT 10/22/24 Transmitted 12:30 Abg W/ Co-Ox RT 10/22/24 Logged 13:30 Respiratory Misc. RT 10/22/24 Transmitted Order 12:30 Drug Screen LAB 10/22/24 Logged 12:39 Blood Alcohol LAB 10/22/24 In Process 12:39 Covid19 Antigen Sarah LAB 10/22/24 Logged Rapid Influenza A&B LAB 10/22/24 Logged 12:42 Admit ADMIT 10/22/24 Transmitted 13:17 Code Status CODE 10/22/24 Transmitted 13:17 Ondansetron Hcl PHA 10/22/24 Logged (Zofran) 13:30 Docusate Sodium PHA 10/22/24 Logged Capsule (Colace 13:30 Complete Blood Count LAB 10/23/24 Verified 04:00 Comprehensive LAB 10/23/24 Verified Metabolic Panel 04:00 Npo (Nothing By DIET 10/22/24 Transmitted Mouth) Diet Lunch Condition: Critical DEVEN 10/22/24 Transmitted 13:17 Acetaminophen Tablet PHA 10/22/24 Logged (Tylenol Tablet) 13:30 Ipratropium Medneb PHA 10/22/24 Logged (Atrovent Medneb) 18:00 Albuterol Medneb PHA 10/22/24 Logged (Ventolin Medneb) 18:00 Date of Service: October 22, 2024 Billing Provider: RYAN SAENZ Common Visit Codes: [id number] INP/OBS CARE (HIGH) RYAN SAENZ October 22, 2024 13:45
[2024-10-22 14:23] LABS: Benzodiazephine Screen, Urine Neg (NEGATIVE); Opiate Scree,Urine Neg (NEGATIVE)
[2024-10-22 14:26] LABS: Amphetamine Screen, Urine Neg (NEGATIVE); Barbiturate Scree,Urine Neg (NEGATIVE); Cannabinoid Screen, Urine Neg (NEGATIVE); Cocaine Screen, Urine Neg (NEGATIVE); Phencyclidine Screen, Urine Neg (NEGATIVE)
[2024-10-22 15:06] LABS: Base Excess -10.1 mmol/L (-2.0-3.0)
[2024-10-22 15:06] LABS: Rapid Influenza A Negative (Negative); Rapid Influenza B Negative (Negative)
[2024-10-22 15:07] LABS: COVID19 ANTIGEN SOFIA FIA NEGATIVE (NEGATIVE)
[2024-10-22] MEDS ORDERED: VANCOMYCIN PER PHARMACY 0 MG IV SCH (15:45)
--- NOTE | 2024-10-22 15:45 | DVH ---
INDICATION: sob TECHNIQUE: Frontal view of the chest. COMPARISON: XY CHEST PORTABLE on DOS: 10/22/24, XY CHEST PORTABLE on DOS: 08/28/24, XY CHEST PORTABLE on DOS: 10/22/24 FINDINGS: Lines and tubes: ET in the mid thoracic trachea, NG crosses midline, right CVC seen in the SVC. Cardiomediastinal silhouette: normal Pulmonary vasculature: normal Lung expansion: normal Lung airspace: normal Lung interstitium: normal Pleura: normal Pneumothorax: no Bones: Unremarkable Other: no IMPRESSION: ET in the mid thoracic trachea, NG crosses midline (can be advanced 8 cm), right CVC seen in the SVC.
[2024-10-22] MEDS: SODIUM BICARB 8.4% 50Meq/50ml SYR INJ ONE (16:49)
[2024-10-22 17:09] LABS: Base Excess -6.2 mmol/L (-2.0-3.0)
[2024-10-22] MEDS: SODIUM BICARB 8.4% 50Meq/50ml SYR Vial IV ONE (17:35)
[2024-10-22] MEDS ORDERED: IPRATROPIUM BROM 0.5 MG/2.5ML INH SOL NEB SCH (18:00)
[2024-10-22] MEDS ORDERED: ALBUTEROL SULF 2.5 MG/0.5ML(0.5%) NEB SOLN NEB SCH (18:00)
[2024-10-22] MEDS: VANCOMYCIN 1GM/200ML PM 250 ML IV SCH (18:09)
[2024-10-22] MEDS: IPRATROPIUM BROM 0.5 MG/2.5ML INH SOL NEB SCH (18:26)
[2024-10-22] MEDS: ALBUTEROL SULF 2.5 MG/0.5ML(0.5%) NEB SOLN NEB SCH (18:26)
--- NOTE | 2024-10-22 19:47 | DVHINCON2 ---
Date of service: October 22, 2024 Referring Physician Darlene Agudelo NP Reason for Consultation Acute respiratory failure History of Present Illness History Source: Patient, RN Notes, MD Notes Exam Limitations: Clinical condition HPI Patient is a 34-year old gentleman with a history of asthma who presented with shortness of breath and wheezing. Was seen in the emergency room where he was found to desaturate and have increased work of breathing and the patient was intubated. Pulmonology was consulted for to assist in management. Home Meds Active Scripts Prednisone (Prednisone) 20 Mg Tab, 40 MG PO DAILY for 5 Days, #10 MG Prov:FERMIN NOGUEIRA MD 08/28/24 Past Medical History Cardiac: No pertinent Hx Pulmonary: Asthma Central Nervous System: No pertinent Hx GI: No pertinent Hx Hemotology/Oncology: No pertinent Hx Hepatobiliary: No pertinent Hx Psychiatric: No pertinent Hx Musculoskeletal: No pertinent Hx Rheumotologic: No pertinent Hx Infectious Disease: No peritnent Hx ENT: No pertinent Hx Renal/: No pertinent Hx Endocrine: No pertinent Hx Dermatology: No pertinent Hx Past Surgical History: No pertinent Hx Family History: No pertinent Hx Smoker: No Hx (Negative) Alocohol: None Drugs: None Lives with: With family Domestic Violence: Neg H&P Exam Vital Signs Vital Signs Date Time Temp Pulse Resp B/P (MAP) Pulse Ox O2 Delivery O2 Flow Rate FiO2 10/22/24 19:00 137/69 10/22/24 19:00 98.6 109 24 94 98.6 10/22/24 18:26 50 10/22/24 11:30 Mechanical Ventilator+ 10/22/24 09:53 8 General Appeara: Well developed, Well nourished, Normal Appearance Head Exam: Normal inspection Neck Exam: Normal inspection, Non-tender, Normal alignment Eye Exam: bilateral eye Normal inspection, bilateral eye PERRL, bilateral eye EOMI Ear Exam: bilateral ear Auricle normal, bilateral ear Canal normal, bilateral ear TM normal Nasal Exam: Normal inspection Mouth: Normal Inspection Pulmonary/Respiratory: Decreased breath sounds Cardiovascular/Chest: Normal inspection Peripheral Pulses: 4+ Radial (R), 4+ Radial (L), 4+ Brachial (R), 4+ Brachial (L) Abdominal Exam: Normal bowel sounds Labs/Xrays Labs Test 10/22/24 17:00 10/22/24 14:00 10/22/24 12:52 10/22/24 12:30 Range/Units Blood Gas Specimen Type Arterial Blood Gas Sample Site Left radial Blood Gas Patient Temperature 37.0 Arterial Blood Date Drawn [id number] Arterial Blood pH 7.125 *L 7.350-7.450 Arterial Blood Partial Pressure CO2 78.8 *H 35.0-48.0 mmHg Arterial Blood Partial Pressure O2 93.0 83.0-108.0 mmHg Arterial Blood HCO3 25.3 21.0-28.0 mmol/L Arterial Blood Oxygen Saturation 95.8 94.0-98.0 % Arterial Blood Base Excess -6.2 L -2.0-3.0 mmol/L Arterial Blood Oxyhemoglobin 94.5 94.0-98.0 % Arterial Blood Carboxyhemoglobin 0.7 0.5-1.5 % Arterial Blood Methemoglobin 0.7 0.0-1.5 % Zuhair Test Modified Blood Gas Total Hemoglobin 16.60 13.5-17.5 g/dL Blood Gas Set Respiration Rate 24.0 Blood Gas Modality Vent - p/c FiO2 % 50.0 Blood Gas PEEP or CPAP 5.0 Blood Gas Critical Value Read Back Yes Blood Gas Notified Whom claude Puga md Blood Gas Notified Time [id number] Blood Gas Notified By Renny segal i. Influenza Type A Antigen Negative Negative Influenza Type B Antigen Negative Negative SARS-CoV-2 Antigen (Rapid) Negative NEGATIVE Troponin I High Sensitivity 11 </=54 ng/L Plasma/Serum Blood Alcohol < 3.0 <10 mg/dL Urine Opiates Screen Neg NEGATIVE Urine Fentanyl Screen Neg NEGATIVE Urine Barbiturates Screen Neg NEGATIVE Urine Phencyclidine Screen Neg NEGATIVE Urine Amphetamines Screen Neg NEGATIVE Urine Benzodiazepines Screen Neg NEGATIVE Urine Cocaine Screen Neg NEGATIVE Urine Cannabinoids Screen Neg NEGATIVE Test 10/22/24 12:12 10/22/24 11:02 Range/Units Blood Gas Tidal Volume 600.0 White Blood Count 17.7 H 4.4-10.8 10^3/uL Red Blood Count 5.52 4.5-5.90 10^6/uL Hemoglobin 16.9 13.5-17.5 g/dL Hematocrit 49.7 41.0-53.0 % Mean Corpuscular Volume 90.1 80.0-100.0 fL Mean Corpuscular Hemoglobin 30.6 28.0-32.0 pg Mean Corpuscular Hemoglobin Concent 34.0 32.0-36.0 g/dL Red Cell Distribution Width 13.0 11.8-14.3 % Platelet Count 266 140-450 10^3/uL Mean Platelet Volume 8.2 6.9-10.8 fL Neutrophils (%) (Auto) 59.1 37.0-80.0 % Lymphocytes (%) (Auto) 24.7 10.0-50.0 % Monocytes (%) (Auto) 4.0 0.0-12.0 % Eosinophils (%) (Auto) 11.9 H 0.0-7.0 % Basophils (%) (Auto) 0.3 0.0-2.0 % Neutrophils # (Auto) 10.5 H 1.6-8.6 10 ^3/uL Lymphocytes # (Auto) 4.4 0.4-5.4 10 ^3/uL Monocytes # (Auto) 0.7 0-1.3 10 ^3/uL Eosinophils # (Auto) 2.1 H 0-0.8 10 ^3/uL Basophils # (Auto) 0 0-0.2 10 ^3/uL Nucleated Red Blood Cells 0.1 % Sodium Level 141 136-145 mmol/L Potassium Level 4.5 3.5-5.1 mmol/L Chloride Level 105 98-107 mmol/L Carbon Dioxide Level 27 20-31 mmol/L Anion Gap 9 5-15 Blood Urea Nitrogen 7 L 9-23 mg/dL Creatinine 0.95 0.700-1.30 mg/dL Glomerular Filtration Rate Calc 108 >90 mL/min BUN/Creatinine Ratio 7.4 L 10.0-20.0 Serum Glucose 145 H 74-106 mg/dL Lactic Acid Level 1.9 0.4-2.0 mmol/L Calcium Level 9.2 8.7-10.4 mg/dL Assessment/Plan Plan Impression Acute hypoxemic respiratory failure Acute asthma attack Alcohol abuse Atelectasis Patient seen and examined in ER Events On mechanical ventilation S/p intubation PEEP 5, FiO2 30% Sedated with Propofol and Versed Labs and imaging reviewed White count elevated at 24 Chest x-ray unremarkable ABG reviewed pH 7.08, pCO2 74, pO2 95 Management Vent support Titrate to maintain sats 90% or above Sedation for vent synchrony Antibiotics Obtain cultures Bronchodilators Steroids Solumedrol 80mg IV TID Monitor renal function Monitor electrolytes Supplement as needed Pressors as needed for hemodynamic support To maintain a mean arterial pressure of 65 mmHg Consider Heliox therapy DVT prophylaxis Critical care time 35 minutes Plan discussed with: Other (Rn) ALLEN PUGA MD October 22, 2024 19:47
[2024-10-22] MEDS: FOLIC ACID 1 MG, MULTIPLE VITAMIN 10 ML, MAGNESIUM SULF SDV 50% 8 MEQ, THIAMINE INJ 100... INJ SCH (21:08)
[2024-10-22] MEDS: methylPREDNISolone SOD SUCC 40 MG/ML VL IV SCH (21:11)
[2024-10-22] MEDS ORDERED: methylPREDNISolone SOD SUCC 40 MG/ML VL IV SCH (22:00)
[2024-10-23] VITALS (108 sets, daily range): BP systolic 104–143; BP diastolic 42–71; PULSE 86–116; RESP 11–26; TEMP 97.5–99.7; O2SAT 91–97
--- NOTE | 2024-10-23 01:24 | DVH ---
CT HEAD WITHOUT CONTRAST INDICATION: elevated BP COMPARISON: None TECHNIQUE: CT of the head without intravenous contrast. RADIATION DOSE: CTDIvol: mGy, DLP: mGy*cm FINDINGS: Study is mildly decreased by patient motion artifact. There is no evidence of intracranial hemorrhage, infarct, extra-axial collection, mass effect, midli ne shift, herniation or hydrocephalus. The ventricles, sulci and cisterns are normal. Visualized para nasal sinuses and mastoid air cells are clear. Soft tissues and osseous structures are unremarkable. IMPRESSION: No intracranial abnormality identified.
[2024-10-23] MEDS: VANCOMYCIN 1.25GM/250ML 250 ML IV SCH (01:38)
[2024-10-23] MEDS: PROPOFOL 100 ML IV SCH (01:39)
[2024-10-23] MEDS: MIDAZOLAM DRIP 50 mg/50mL 50 ML IV SCH (02:43)
[2024-10-23 03:36] LABS: Base Excess 0.5 mmol/L (-2.0-3.0)
--- NOTE | 2024-10-23 04:15 | DVH ---
Procedure: CT CHEST WITHOUT CONTRAST Reason for study/Clinical History: Intubation/SOB Comparison Study: Chest radiograph performed on 10/22/2024 Exam Date: 10/23/2024 12:47 AM TECHNIQUE: Multidetector CT of the chest was performed from the lung apices to the upper abdomen with out the use of intravenous contract. Coronal and sagittal multiplanar reformats were performed. Radiation Dose Information: CT Dose: CTDI volume is 62.8 mGy. Dose-length product is 1004.5 mGy*cm The dose indicators for CT are the volume Computed Tomography (CT) Dose Index (CTDIvol) and the Dose Length Product (DLP), and are measured in units of mGy and mGy-cm, respectively. These indicators are not patient dose, but values generated from the CT scanner acquisition factors. The report includes radiation exposure data for exposures received during this examination. FINDINGS: Support lines and tubes : Endotracheal tube terminates above the rafa. The enteric tube terminates in the stomach. Lower neck: Normal thyroid. Lungs: No focal consolidation, pleural effusion or pneumothorax. Heart/Vascular Structures: Normal heart size. No pericardial effusion. Lymph Nodes: No adenopathy Pleura: No pleural effusion or significant pneumothorax. Musculoskeletal: No acute osseous abnormality. Soft tissues: Normal. Upper abdomen: Limited portions of the upper abdomen are unremarkable. IMPRESSION: 1. No acute intrathoracic abnormality. Radiation optimization: All CT scans at this facility use at least one of these dose optimization nancy hniques: automated exposure control mA and/or kV adjustment per patient size (includes targeted exam s where dose is matched to clinical indication) or iterative reconstruction.
[2024-10-23 04:47] LABS: Base Excess -1.1 mmol/L (-2.0-3.0)
[2024-10-23 06:03] LABS: Basophils # (auto) 0 10 ^3/uL (0-0.2); Basophils % (auto) 0.1 % (0.0-2.0); Eosinophils # (auto) 0 10 ^3/uL (0-0.8); Hematocrit 40.8 % (41.0-53.0); Lymphocytes # (auto) 1.2 10 ^3/uL (0.4-5.4); Lymphocytes % (auto) 7.7 % (10.0-50.0); Mean Corpuscular Hemoglobin 30.7 pg (28.0-32.0); Mean Corpuscular Hgb Conc. 34.3 g/dL (32.0-36.0); Mean Corpuscular Volume 89.4 fL (80.0-100.0); Monocytes # (auto) 0.4 10 ^3/uL (0-1.3); Monocytes % (auto) 2.5 % (0.0-12.0); Neutrophils # (auto) 14.2 10 ^3/uL (1.6-8.6); Neutrophils % (auto) 89.7 % (37.0-80.0); Nucleated Red Blood Cells % 0.1 %; Platelet Count (auto) 184 10^3/uL (140-450); Red Blood Cells 4.56 10^6/uL (4.5-5.90); Red Cell Distribution Width 12.8 % (11.8-14.3); White Blood Cell 15.9 10^3/uL (4.4-10.8)
[2024-10-23] MEDS: IPRATROPIUM BROM 0.5 MG/2.5ML INH SOL NEB SCH (06:08)
[2024-10-23] MEDS: ALBUTEROL SULF 2.5 MG/0.5ML(0.5%) NEB SOLN NEB SCH (06:08)
[2024-10-23 06:12] LABS: Albumin 4.2 g/dL (3.2-4.8); Alkaline Phosphatase 71 U/L (46-116); Anion Gap 6 (5-15); Aspartate Aminotransferase 30 U/L (13-40); BUN/Creatinine Ratio 8.4 (10.0-20.0); Carbon Dioxide 30 mmol/L (20-31); Chloride 101 mmol/L (98-107); Potassium 4.5 mmol/L (3.5-5.1); Sodium 137 mmol/L (136-145); Total Protein 6.9 g/dL (5.7-8.2)
[2024-10-23 06:13] LABS: Bilirubin, Total 0.5 mg/dL (0.2-1.0)
[2024-10-23 06:14] LABS: Alanine Aminotransferase 49 U/L (7-40); Blood Urea Nitrogen 8 mg/dL (9-23); Glucose 157 mg/dL (74-106)
--- NOTE | 2024-10-23 07:03 | DVH ---
EXAM: XR Chest, 1 View CLINICAL INDICATION: INTUBATED TECHNIQUE: Frontal view of the chest. COMPARISON: XY CHEST PORTABLE on DOS: 10/22/24, XY CHEST PORTABLE on DOS: 10/22/24, XY CHEST PORTABLE on DOS: 08/28/24 FINDINGS: LUNGS AND PLEURAL SPACES: Right basilar atelectasis or pneumonia. No pneumothorax. HEART: Unremarkable. No cardiomegaly. MEDIASTINUM: Unremarkable. Normal mediastinal contour. BONES/JOINTS: Unremarkable. No acute fracture. TUBES, LINES AND DEVICES: Right internal jugular central venous catheter tip in the superior vena c deep. The endotracheal tube (ETT) is in satisfactory position. Enteric tube tip in the stomach. OTHER FINDINGS: . . IMPRESSION: Right basilar atelectasis or pneumonia.
[2024-10-23] MEDS: cefTRIAXone 1GM/50ML D5W 50 ML IV SCH (09:56)
[2024-10-23] MEDS: fentaNYL Drip 2500mCg/250mlNS 250 ML IV SCH (11:01)
--- NOTE | 2024-10-23 13:28 | DVHPN2 ---
Progress Note - Dictate Date Seen: October 23, 2024 Has the PT tested + for MRSA If YES, has PT been informed?: No Medical Necessity Reason Pt with a Central, PICC or Fol: No vital signs Vital Sign Date Time Temp Pulse Resp B/P (MAP) Pulse Ox O2 Delivery O2 Flow Rate FiO2 10/23/24 12:04 99 24 125/61 (82) 96 50 10/23/24 12:00 Mechanical Ventilator+ 10/23/24 09:15 98.4 98.4 10/22/24 09:53 8 Total Intake and Output 10/22/24 10/22/24 10/23/24 15:00 23:00 07:00 Intake Total 1400 ml 731.0 ml 1517.8 ml Output Total 800 ml 1425 ml Balance 1400 ml -69.0 ml 92.8 ml medications Current Medications Medications Dose Ordered Sig/Chencho Route Start Time Stop Time Status Last Admin Dose Admin Ondansetron HCl 4 mg Q4HP PRN IV 10/22/24 13:45 Docusate Sodium 100 mg BIDPRN PRN PO 10/22/24 13:45 Acetaminophen 650 mg Q6HP PRN PO 10/22/24 13:45 Folic Acid 1 mg/ Multivitamins 10 ml/Magnesium Sulfate 8 meq/ Thiamine HCl 100 mg/Dextrose 1,013.2 ml @ 125.001 mls/hr DAILY@1800 INJ 10/22/24 18:00 10/22/24 21:08 125.001 MLS/HR Ceftriaxone Sodium 50 ml @ 100 mls/hr DAILY@09 IV 10/23/24 09:00 10/23/24 09:56 100 MLS/HR Vancomycin HCl 0 ml @ 0 mls/hr UD IV 10/22/24 15:45 Vancomycin HCl 250 ml @ 200 mls/hr Q8H IV 10/23/24 02:00 10/23/24 11:09 200 MLS/HR Methylprednisolone Sodium Succinate 80 mg TID IV 10/22/24 22:00 10/23/24 05:48 80 MG Midazolam HCl 50 ml @ 1 mls/hr Q24H IV 10/22/24 23:45 10/23/24 09:56 15 MLS/HR Propofol 100 ml @ 3.12 mls/hr Q24H IV 10/22/24 23:45 10/23/24 11:09 31.2 MLS/HR Albuterol 2.5 mg Q4HR NEB 10/23/24 06:00 10/23/24 10:18 2.5 MG Ipratropium [place] 0.5 mg Q4HR NEB 10/23/24 06:00 10/23/24 10:18 0.5 MG Fentanyl Citrate 250 ml @ 2.5 mls/hr Q24H IV 10/23/24 10:15 10/23/24 11:01 2.5 MLS/HR Enoxaparin Sodium 40 mg DAILY SC 10/24/24 10:00 Rocuronium [place] 50 mg Q1HP PRN IV 10/23/24 12:45 Pantoprazole Sodium 40 mg DAILY IV 10/24/24 10:00 Enteral Nutritional Formula 1,000 ml 30ML/HR GT 10/23/24 13:00 laboratory and microbiology Laboratory Tests 10/23/24 05:20 Test 10/23/24 05:20 Range/Units Serum Glucose 157 H 74-106 mg/dL Assessment/Plan severe asthma attack intubated auto-pEEP 15 cm H20 high aw Pressure abg reviewed permissive hypercapnea vent changes made labs and imaging reviewed plan cont vent support sedation paralysis as needed steroids alb/atr gi and dvt proph start nutrition Plan discussed with: Other (rn) ALLEN YIP MD October 23, 2024 13:28
[2024-10-23] MEDS: PANTOPRAZOLE 40 MG/10 ML VIAL INJ IV ONE (13:32)
[2024-10-23] MEDS: ROCURONIUM 10MG/ML 10ML VIAL IV PRN (13:34)
[2024-10-23] MEDS: ENOXAPARIN SOD 40 MG/0.4 ML SYRINGE SC ONE (13:34)
[2024-10-23] MEDS: ROCURONIUM BROMIDE 1,000 MG in D5W 5% 150 ML IV SCH (15:51)
--- NOTE | 2024-10-23 16:31 | DVHPN2 ---
Subjective Patient chemically sedated Reviewed: Care Plan, H&P, Labs, Medications Changes from previous H/P or p: No Changes General: Per HPI Eyes: No Pain, No Vision change, No Conjunctivae inflammation, No Eyelid inflammation, No Other, No Redness ENT: No Ear pain, No Ear discharge, No Nose pain, No Nose discharge, No Nose congestion, No Mouth pain, No Mouth swelling, No Throat pain, No Throat swelling, No Other Cardiovascular: No Chest Pain, No Palpitations, No Orthopnea, No Paroxysmal Noc. Dyspnea, No Edema, No Lt Headedness, No Other Respiratory: Cough; No Dry; Shortness of breath, SOB with excertion, Wheezing; No Hemoptysis, No Pleuritic Pain, No Sputum, No Other Gastrointestinal: No Nausea, No Vomiting, No Abdominal Pain, No Diarrhea, No Constipation, No Melena, No Hematochezia, No Other Genitourinary: No Dysuria, No Frequency, No Incontinence, No Hematuria, No Retention, No Other Musculoskeletal: No other, No neck pain, No shoulder pain, No arm pain, No back pain, No hand pain, No leg pain, No foot pain Skin: No Rash, No Lesions, No Jaundice, No Bruising, No Other Objective Vitals Vital Signs Date Time Temp Pulse Resp B/P (MAP) Pulse Ox O2 Delivery O2 Flow Rate FiO2 10/23/24 16:16 97 16 135/64 (87) 92 50 10/23/24 15:57 Mechanical Ventilator+ 10/23/24 15:45 99.7 99.7 10/22/24 09:53 8 Intake/Output Intake and Output 10/23/24 07:00 Intake Total 3648.8 ml Output Total 2225 ml Balance 1423.8 ml Intake IV Total 3648.8 ml Output Urine Total 2225 ml General Appearance: moderate distress, Other (RN) HEENT: Atraumatic, PERRLA Lungs: Other (Decreased breath sounds. Mechanical ventilation. High peak pressures.) Cardiovascular: Normal S1, Normal S2 Abdomen: Normal bowel sounds, Soft, No tenderness Genitourinary: No Apparent Abnormalities (Reeder catheter) Musculoskeletal: Other (Unable to assess) Skin: Dry, Intact Medications Current Medications Medications Dose Ordered Sig/Chencho Route Start Time Stop Time Status Last Admin Dose Admin Ondansetron HCl 4 mg Q4HP PRN IV 10/22/24 13:45 Docusate Sodium 100 mg BIDPRN PRN PO 10/22/24 13:45 Acetaminophen 650 mg Q6HP PRN PO 10/22/24 13:45 Folic Acid 1 mg/ Multivitamins 10 ml/Magnesium Sulfate 8 meq/ Thiamine HCl 100 mg/Dextrose 1,013.2 ml @ 125.001 mls/hr DAILY@1800 INJ 10/22/24 18:00 10/22/24 21:08 125.001 MLS/HR Ceftriaxone Sodium 50 ml @ 100 mls/hr DAILY@09 IV 10/23/24 09:00 10/23/24 09:56 100 MLS/HR Vancomycin HCl 0 ml @ 0 mls/hr UD IV 10/22/24 15:45 Vancomycin HCl 250 ml @ 200 mls/hr Q8H IV 10/23/24 02:00 10/23/24 11:09 200 MLS/HR Methylprednisolone Sodium Succinate 80 mg TID IV 10/22/24 22:00 10/23/24 13:33 80 MG Midazolam HCl 50 ml @ 1 mls/hr Q24H IV 10/22/24 23:45 10/23/24 13:32 15 MLS/HR Propofol 100 ml @ 3.12 mls/hr Q24H IV 10/22/24 23:45 10/23/24 13:29 31.2 MLS/HR Albuterol 2.5 mg Q4HR NEB 10/23/24 06:00 10/23/24 14:15 2.5 MG Ipratropium [place] 0.5 mg Q4HR NEB 10/23/24 06:00 10/23/24 14:15 0.5 MG Fentanyl Citrate 250 ml @ 2.5 mls/hr Q24H IV 10/23/24 10:15 10/23/24 11:01 2.5 MLS/HR Enoxaparin Sodium 40 mg DAILY SC 10/24/24 10:00 Rocuronium [place] 50 mg Q1HP PRN IV 10/23/24 12:45 10/23/24 13:34 50 MG Pantoprazole Sodium 40 mg DAILY IV 10/24/24 10:00 Enteral Nutritional Formula 1,000 ml 30ML/HR GT 10/23/24 13:00 Rocuronium [place] 1000 mg/ Dextrose 250 ml @ 12.48 mls/ hr Q20H2M IV 10/23/24 14:45 10/23/24 15:51 12.48 MLS/HR Budesonide 0.5 mg BID NEB 10/23/24 22:00 Ketamine HCl 500 mg/Sodium Chloride 500 ml @ 6.24 mls/hr Q24H IV 10/23/24 16:00 Laboratory Results Laboratory Tests 10/23/24 05:20 Chemistry Test 10/23/24 05:20 Albumin 4.2 g/dL (3.2-4.8) Calcium Level 9.0 mg/dL (8.7-10.4) Magnesium Level Pending Total Protein 6.9 g/dL (5.7-8.2) LFT Test 10/23/24 05:20 Alanine Aminotransferase (ALT) 49 U/L (7-40) H Alkaline Phosphatase 71 U/L (46-116) Aspartate Amino Transferase (AST) 30 U/L (13-40) Total Bilirubin 0.5 mg/dL (0.2-1.0) Blood Gas Results Test 10/22/24 17:00 10/23/24 03:20 10/23/24 04:35 Arterial Blood pH 7.125 (7.350-7.450) 7.297 (7.350-7.450) 7.326 (7.350-7.450) FiO2 % 50.0 50.0 50.0 Microbiology Microbiology Date/Time Source Procedure Growth Status 10/22/24 11:02 Blood Blood Culture - Preliminary NO GROWTH AFTER 24 HOURS OF INCUBATION. Resulted 10/22/24 10:43 Sputum Gram Stain - Final Resulted 10/22/24 10:43 Sputum Respiratory Culture - Preliminary Resulted Labs and/or images reviewed: Labs reviewed by me, Image(s) reviewed by me Assessment/Plan Assessment/Plan Impression: -acute asthma exacerbation -acute hypoxic and hypercarbic respiratory failure -sirs -history of alcoholism Plan: -patient with persistent increase peak pressures despite sedation. -pulmonology consultation -start rocuronium drip -IV magnesium -continue current sedation, add ketamine drip -banana bag daily -continue IV Solu-Medrol, add Pulmicort b.i.d. -albuterol continuous treatment -DuoNebs q.4 hours -repeat labs, chest x-ray, ABG in a.m. Critical care time spent with patient discussing and formulating plan of care: 40 minutes. This does not include time spent performing procedures. This medical document was created using an electronic medical record system with [employer] dictation system. Although this document has been carefully reviewed, there may still be some phonetic and typographical errors. These areas are purely typographical due to imperfections of the software programs, and do not reflect any compromise in the patient's medical care. Plan discussed with: Patient, Other (RN) My Orders Orders - RAMA BENOIT NP Procedure Category Date Status Time Budesonide PHA 10/23/24 In Process (Inhalation) 22:00 Magnesium Sulfate PHA 10/23/24 In Process 1gm/100ml 16:00 Sodium Chl 0.9% PHA 10/23/24 In Process (So... W/Ketamine 16:00 Comprehensive LAB 10/23/24 Logged Metabolic Panel 15:54 Complete Blood Count LAB 10/24/24 Verified 04:00 Chest Portable XY 10/24/24 Logged 04:00 Magnesium LAB 10/24/24 Verified 04:00 Magnesium LAB 10/23/24 In Process 16:16 Date of Service: October 23, 2024 Billing Provider: RAMA BENOIT NP Common Visit Codes: [id number] CARE 30-74 MIN RAMA BENOIT NP October 23, 2024 16:31
[2024-10-23] MEDS: MAGNESIUM SULFATE 1GM/100ML 100 ML IV ONE (16:32)
[2024-10-23] MEDS: ALBUTEROL SULF 2.5 MG/0.5ML(0.5%) NEB SOLN NEB ONE (16:44)
[2024-10-23] MEDS: KETAMINE 50mg/ML 10ml Vial 500 MG in SODIUM CHL 0.9% 490 ML IV SCH ×2 (17:04→19:15)
[2024-10-23 17:29] LABS: Albumin 4.5 g/dL (3.2-4.8); Alkaline Phosphatase 74 U/L (46-116); Anion Gap 5 (5-15); BUN/Creatinine Ratio 9.1 (10.0-20.0); Bilirubin, Total 0.3 mg/dL (0.2-1.0); Blood Urea Nitrogen 9 mg/dL (9-23); Calcium 9.4 mg/dL (8.7-10.4); Chloride 104 mmol/L (98-107); Potassium 4.8 mmol/L (3.5-5.1); Sodium 140 mmol/L (136-145); Total Protein 7.2 g/dL (5.7-8.2)
[2024-10-23 18:09] LABS: Alanine Aminotransferase 53 U/L (7-40); Aspartate Aminotransferase 112 U/L (13-40); Carbon Dioxide 31 mmol/L (20-31); Glucose 147 mg/dL (74-106)
[2024-10-23] MEDS: BUDESONIDE (INHALATION) 0.5 MG/2 ML NEB NEB SCH (18:14)
[2024-10-23] MEDS: VANCOMYCIN 1GM/200ML PM 200 ML IV SCH (22:53)
[2024-10-24] VITALS (100 sets, daily range): BP systolic 91–139; BP diastolic 33–75; PULSE 71–113; RESP 13–49; TEMP 98.4–99.3; O2SAT 91–100
[2024-10-24 06:22] LABS: Base Excess 0.5 mmol/L (-2.0-3.0)
[2024-10-24 06:29] LABS: Basophils # (auto) 0 10 ^3/uL (0-0.2); Basophils % (auto) 0.1 % (0.0-2.0); Eosinophils # (auto) 0 10 ^3/uL (0-0.8); Hematocrit 41.3 % (41.0-53.0); Hemoglobin 13.7 g/dL (13.5-17.5); Lymphocytes # (auto) 0.8 10 ^3/uL (0.4-5.4); Lymphocytes % (auto) 4.2 % (10.0-50.0); Mean Corpuscular Hemoglobin 30.4 pg (28.0-32.0); Mean Corpuscular Hgb Conc. 33.1 g/dL (32.0-36.0); Mean Corpuscular Volume 91.6 fL (80.0-100.0); Monocytes % (auto) 4.9 % (0.0-12.0); Neutrophils # (auto) 17.5 10 ^3/uL (1.6-8.6); Neutrophils % (auto) 90.8 % (37.0-80.0); Platelet Count (auto) 177 10^3/uL (140-450); Red Blood Cells 4.51 10^6/uL (4.5-5.90); White Blood Cell 19.4 10^3/uL (4.4-10.8)
[2024-10-24 06:35] LABS: Magnesium 2.8 mg/dL (1.6-2.6)
--- NOTE | 2024-10-24 06:38 | DVH ---
CHEST RADIOGRAPH Indication: asthma Technique: Single frontal view of the chest was obtained Comparison: XY CHEST XRAY 1 VIEW on DOS: 10/23/24, XY CHEST PORTABLE on DOS: 10/22/24, XY CHEST PORTABL E on DOS: 10/22/24 FINDINGS: Lines and Tubes: None Lungs: Bilateral interstitial prominence. Bibasilar opacities. Pleura: No effusion. No pneumothorax. Cardiomediastinal contours: Unremarkable Bones: No acute osseous abnormality. IMPRESSION: 1. Pulmonary venous congestion. Bibasilar opacities which may represent atelectasis or pneumonia.
[2024-10-24] MEDS: PANTOPRAZOLE 40 MG/10 ML VIAL INJ IV SCH (08:44)
[2024-10-24] MEDS: ENOXAPARIN SOD 40 MG/0.4 ML SYRINGE SC SCH (08:44)
--- NOTE | 2024-10-24 09:45 | DVHPN2 ---
Subjective Patient chemically sedated Reviewed: Care Plan, H&P, Labs, Medications Changes from previous H/P or p: No Changes General: Per HPI Eyes: No Pain, No Vision change, No Conjunctivae inflammation, No Eyelid inflammation, No Other, No Redness ENT: No Ear pain, No Ear discharge, No Nose pain, No Nose discharge, No Nose congestion, No Mouth pain, No Mouth swelling, No Throat pain, No Throat swelling, No Other Cardiovascular: No Chest Pain, No Palpitations, No Orthopnea, No Paroxysmal Noc. Dyspnea, No Edema, No Lt Headedness, No Other Respiratory: Cough; No Dry; Shortness of breath, SOB with excertion, Wheezing; No Hemoptysis, No Pleuritic Pain, No Sputum, No Other Gastrointestinal: No Nausea, No Vomiting, No Abdominal Pain, No Diarrhea, No Constipation, No Melena, No Hematochezia, No Other Genitourinary: No Dysuria, No Frequency, No Incontinence, No Hematuria, No Retention, No Other Musculoskeletal: No other, No neck pain, No shoulder pain, No arm pain, No back pain, No hand pain, No leg pain, No foot pain Skin: No Rash, No Lesions, No Jaundice, No Bruising, No Other Objective Vitals Vital Signs Date Time Temp Pulse Resp B/P (MAP) Pulse Ox O2 Delivery O2 Flow Rate FiO2 10/24/24 08:49 132/47 10/24/24 08:30 78 21 95 10/24/24 08:18 50 10/24/24 08:00 99.1 99.1 10/24/24 08:00 Mechanical Ventilator+ 10/22/24 09:53 8 Intake/Output Intake and Output 10/24/24 07:00 Intake Total 3466.30 ml Output Total 2350 ml Balance 1116.30 ml Intake Oral 0 ml IV Total 3466.30 ml Output Urine Total 2350 ml General Appearance: severe distress, Other (RN) HEENT: Atraumatic, PERRLA Lungs: Other (Bilateral wheezing. Peak pressure 40) Cardiovascular: Normal S1, Normal S2 Abdomen: Normal bowel sounds, Soft, No tenderness Genitourinary: No Apparent Abnormalities (Reeder catheter) Musculoskeletal: Other (Unable to assess) Neuro: Other (Unable to assess) Skin: Dry, Intact Psych/Mental Status: Other (Unable to assess) Medications Current Medications Medications Dose Ordered Sig/Chencho Route Start Time Stop Time Status Last Admin Dose Admin Ondansetron HCl 4 mg Q4HP PRN IV 10/22/24 13:45 Docusate Sodium 100 mg BIDPRN PRN PO 10/22/24 13:45 Acetaminophen 650 mg Q6HP PRN PO 10/22/24 13:45 Folic Acid 1 mg/ Multivitamins 10 ml/Magnesium Sulfate 8 meq/ Thiamine HCl 100 mg/Dextrose 1,013.2 ml @ 125.001 mls/hr DAILY@1800 INJ 10/22/24 18:00 10/23/24 18:44 125.001 MLS/HR Ceftriaxone Sodium 50 ml @ 100 mls/hr DAILY@09 IV 10/23/24 09:00 10/24/24 08:44 100 MLS/HR Vancomycin HCl 0 ml @ 0 mls/hr UD IV 10/22/24 15:45 Methylprednisolone Sodium Succinate 80 mg TID IV 10/22/24 22:00 10/24/24 05:23 80 MG Midazolam HCl 50 ml @ 1 mls/hr Q24H IV 10/22/24 23:45 10/24/24 06:58 14 MLS/HR Propofol 100 ml @ 3.12 mls/hr Q24H IV 10/22/24 23:45 10/24/24 08:49 31.2 MLS/HR Albuterol 2.5 mg Q4HR NEB 10/23/24 06:00 10/24/24 05:50 2.5 MG Ipratropium [place] 0.5 mg Q4HR NEB 10/23/24 06:00 10/24/24 05:50 0.5 MG Fentanyl Citrate 250 ml @ 2.5 mls/hr Q24H IV 10/23/24 10:15 10/23/24 22:43 20 MLS/HR Enoxaparin Sodium 40 mg DAILY SC 10/24/24 10:00 10/24/24 08:44 40 MG Rocuronium [place] 50 mg Q1HP PRN IV 10/23/24 12:45 10/23/24 13:34 50 MG Pantoprazole Sodium 40 mg DAILY IV 10/24/24 10:00 10/24/24 08:44 40 MG Enteral Nutritional Formula 1,000 ml 30ML/HR GT 10/23/24 13:00 Rocuronium [place] 1000 mg/ Dextrose 250 ml @ 12.48 mls/ hr Q20H2M IV 10/23/24 14:45 10/23/24 15:51 12.48 MLS/HR Budesonide 0.5 mg BID NEB 10/23/24 22:00 10/23/24 18:14 0.5 MG Vancomycin HCl 200 ml @ 200 mls/hr Q8H IV 10/23/24 23:00 10/24/24 06:33 200 MLS/HR Ketamine HCl 500 mg/Sodium Chloride 500 ml @ 6.24 mls/hr Q24H IV 10/23/24 19:15 Laboratory Results Laboratory Tests 10/23/24 16:30 10/24/24 05:13 Chemistry Test 10/23/24 16:30 10/24/24 05:13 Albumin 4.5 g/dL (3.2-4.8) Calcium Level 9.4 mg/dL (8.7-10.4) Total Protein 7.2 g/dL (5.7-8.2) Magnesium Level 2.8 mg/dL (1.6-2.6) H LFT Test 10/23/24 16:30 Alanine Aminotransferase (ALT) 53 U/L (7-40) H Alkaline Phosphatase 74 U/L (46-116) Aspartate Amino Transferase (AST) 112 U/L (13-40) H Total Bilirubin 0.3 mg/dL (0.2-1.0) Blood Gas Results Test 10/24/24 06:17 Arterial Blood pH 7.139 (7.350-7.450) FiO2 % 50.0 Microbiology Microbiology Date/Time Source Procedure Growth Status 10/22/24 11:02 Blood Blood Culture - Preliminary NO GROWTH AFTER 24 HOURS OF INCUBATION. Resulted 10/22/24 10:43 Sputum Gram Stain - Final Resulted 10/22/24 10:43 Sputum Respiratory Culture - Preliminary Resulted Labs and/or images reviewed: Labs reviewed by me, Image(s) reviewed by me Assessment/Plan Assessment/Plan Impression: -acute asthma exacerbation -acute hypoxic and hypercarbic respiratory failure -sirs -history of alcoholism Plan: Events: Patient with worsening hypercarbic respiratory failure. This was discussed with the chain dyer, who increase respiratory rate. Peak pressures assessed to be 40, improved from yesterday. Continue rocuronium drip, ketamine drip, sedation. -chest x-ray reveals pulmonary vascular congestion. IV diuresis -continuous albuterol treatment 10 mg x 1 -repeat BMP, ABG at noon -pulmonology consultation -continue current sedation, add ketamine drip -banana bag daily -continue IV Solu-Medrol, add Pulmicort b.i.d. -albuterol continuous treatment -DuoNebs q.4 hours -repeat labs, chest x-ray, ABG in a.m. Critical care time spent with patient discussing and formulating plan of care: 40 minutes. This does not include time spent performing procedures. This medical document was created using an electronic medical record system with [employer] dictation system. Although this document has been carefully reviewed, there may still be some phonetic and typographical errors. These areas are purely typographical due to imperfections of the software programs, and do not reflect any compromise in the patient's medical care. Plan discussed with: Patient, Other (RN) My Orders Orders - RAMA BENOIT NP Procedure Category Date Status Time Budesonide PHA 10/23/24 In Process (Inhalation) 22:00 Chest Portable XY 10/24/24 Resulted 04:00 Apply Z-Guard DEVEN 10/23/24 In Process 15:25 Sodium Chl 0.9% PHA 10/23/24 In Process (So... W/Ketamine 19:15 Furosemide Injection PHA 10/24/24 Logged (Lasix Injection) 09:30 Basic Metabolic Panel LAB 10/25/24 Verified 05:00 Basic Metabolic Panel LAB 10/26/24 Verified 05:00 Basic Metabolic Panel LAB 10/27/24 Verified 05:00 Complete Blood Count LAB 10/25/24 Verified 05:00 Complete Blood Count LAB 10/26/24 Verified 05:00 Complete Blood Count LAB 10/27/24 Verified 05:00 Basic Metabolic Panel LAB 10/24/24 Transmitted 12:00 Albuterol Medneb PHA 10/24/24 Transmitted (Ventolin Medneb) 09:45 Abg W/ Co-Ox RT 10/24/24 Logged 12:00 Basic Metabolic Panel LAB 10/25/24 Verified 04:00 Chest Portable XY 10/25/24 Logged 04:00 Abg W/ Co-Ox RT 10/25/24 Logged 04:00 Date of Service: October 24, 2024 Billing Provider: RAMA BENOIT NP Common Visit Codes: [id number] CARE 30-74 MIN RAMA BENOIT NP October 24, 2024 09:45
[2024-10-24] MEDS: ALBUTEROL SULF 2.5 MG/0.5ML(0.5%) NEB SOLN NEB ONE (09:57)
[2024-10-24] MEDS: FUROSEMIDE 20 MG/2 ML VIAL IV ONE (10:04)
[2024-10-24] MEDS: MIDAZOLAM DRIP 50 mg/50mL 50 ML IV SCH (11:30)
[2024-10-24] MEDS: PROPOFOL 100 ML IV SCH (11:30)
[2024-10-24] MEDS: PROPOFOL 100 ML IV ONE (11:30)
[2024-10-24] MEDS: fentaNYL Drip 2500mCg/250mlNS 250 ML IV SCH (11:35)
[2024-10-24 11:50] LABS: Chloride 106 mmol/L (98-107); Potassium 4.4 mmol/L (3.5-5.1); Sodium 144 mmol/L (136-145)
[2024-10-24 11:51] LABS: Anion Gap 8 (5-15); Carbon Dioxide 30 mmol/L (20-31)
[2024-10-24 11:56] LABS: BUN/Creatinine Ratio 8.2 (10.0-20.0); Blood Urea Nitrogen 10 mg/dL (9-23)
[2024-10-24 12:00] LABS: Glucose 170 mg/dL (74-106)
--- NOTE | 2024-10-24 12:06 | DVHPN2 ---
Progress Note - Dictate Date Seen: October 24, 2024 Has the PT tested + for MRSA If YES, has PT been informed?: No Medical Necessity Reason Pt with a Central, PICC or Fol: No vital signs Vital Sign Date Time Temp Pulse Resp B/P (MAP) Pulse Ox O2 Delivery O2 Flow Rate FiO2 10/24/24 11:30 103/40 10/24/24 10:00 99.0 93 24 93 210.2 10/24/24 09:57 50 10/24/24 08:00 Mechanical Ventilator+ 10/22/24 09:53 8 Total Intake and Output 10/23/24 10/23/24 10/24/24 15:00 23:00 07:00 Intake Total 669.6 ml 1482.58 ml 1314.12 ml Output Total 550 ml 1800 ml Balance 669.6 ml 932.58 ml -485.88 ml medications Current Medications Medications Dose Ordered Sig/Chencho Route Start Time Stop Time Status Last Admin Dose Admin Ondansetron HCl 4 mg Q4HP PRN IV 10/22/24 13:45 Docusate Sodium 100 mg BIDPRN PRN PO 10/22/24 13:45 Acetaminophen 650 mg Q6HP PRN PO 10/22/24 13:45 Folic Acid 1 mg/ Multivitamins 10 ml/Magnesium Sulfate 8 meq/ Thiamine HCl 100 mg/Dextrose 1,013.2 ml @ 125.001 mls/hr DAILY@1800 INJ 10/22/24 18:00 10/23/24 18:44 125.001 MLS/HR Ceftriaxone Sodium 50 ml @ 100 mls/hr DAILY@09 IV 10/23/24 09:00 10/24/24 08:44 100 MLS/HR Vancomycin HCl 0 ml @ 0 mls/hr UD IV 10/22/24 15:45 Methylprednisolone Sodium Succinate 80 mg TID IV 10/22/24 22:00 10/24/24 05:23 80 MG Albuterol 2.5 mg Q4HR NEB 10/23/24 06:00 10/24/24 10:35 2.5 MG Ipratropium [place] 0.5 mg Q4HR NEB 10/23/24 06:00 10/24/24 10:35 0.5 MG Enoxaparin Sodium 40 mg DAILY SC 10/24/24 10:00 10/24/24 08:44 40 MG Rocuronium [place] 50 mg Q1HP PRN IV 10/23/24 12:45 10/23/24 13:34 50 MG Pantoprazole Sodium 40 mg DAILY IV 10/24/24 10:00 10/24/24 08:44 40 MG Enteral Nutritional Formula 1,000 ml 30ML/HR GT 10/23/24 13:00 Rocuronium [place] 1000 mg/ Dextrose 250 ml @ 12.48 mls/ hr Q20H2M IV 10/23/24 14:45 10/23/24 15:51 12.48 MLS/HR Budesonide 0.5 mg BID NEB 10/23/24 22:00 10/24/24 10:35 0.5 MG Vancomycin HCl 200 ml @ 200 mls/hr Q8H IV 10/23/24 23:00 10/24/24 06:33 200 MLS/HR Ketamine HCl 500 mg/Sodium Chloride 500 ml @ 6.24 mls/hr Q24H IV 10/23/24 19:15 Propofol 100 ml @ 3.204 mls/ hr Q24H IV 10/24/24 11:00 10/24/24 11:30 32.04 MLS/HR Midazolam HCl 50 ml @ 1 mls/hr Q24H IV 10/24/24 11:00 10/24/24 11:30 14 MLS/HR Fentanyl Citrate 250 ml @ 2.5 mls/hr Q24H IV 10/24/24 11:00 10/24/24 11:45 20 MLS/HR laboratory and microbiology Laboratory Tests 10/24/24 05:13 Test 10/24/24 11:33 Range/Units Serum Glucose Pending Assessment/Plan severe asthma attack intubated acute resp failure neuromuscular paralysis events abg this morning reviewed pH 7.1 C02=90 changes made sodium bicarb x 2 amps pt paralyzed for severe bronchospasm CXR: infiltrates management plan cont sedation/paralysis permissive hypercapnea steroids alb/atr abx nutrition gi and dvt proph Dietary Evaluation Review Comments: 1. Pt is on propofol, receiving fat energy 824kcal pt is on sucrose 170kcal from D5W 5% 1000ml out of MVI banan bag, recommend adding clinimix @41ml/hr for his protein needs. This protocol will support pt 1504 kcal, meeting his energy @ 129%, meeting his protein needs @33%. 2. 10/23 lab Mg 28H, consider remove MgSo4 from the MVI banana bag. Expected Outcomes/Goals: Inadeqaute protein support for intubation. Reassess needs when Pt has a more stablized medical condition and or his propofol infusion rate is changed. Plan discussed with: Other (rn) ALLEN YIP MD October 24, 2024 12:06
[2024-10-24 12:08] LABS: Base Excess -0.7 mmol/L (-2.0-3.0)
[2024-10-24] MEDS: SODIUM BICARB 8.4% 50Meq/50ml SYR Vial IV ONE (13:59)
[2024-10-24 19:40] LABS: Base Excess 2.7 mmol/L (-2.0-3.0)
[2024-10-25] VITALS (110 sets, daily range): BP systolic 105–138; BP diastolic 40–68; PULSE 77–101; RESP 16–26; TEMP 97.5–99.5; O2SAT 91–99
[2024-10-25 03:52] LABS: Basophils # (auto) 0 10 ^3/uL (0-0.2); Basophils % (auto) 0.2 % (0.0-2.0); Eosinophils # (auto) 0.1 10 ^3/uL (0-0.8); Eosinophils % (auto) 0.5 % (0.0-7.0); Hematocrit 35.8 % (41.0-53.0); Hemoglobin 11.9 g/dL (13.5-17.5); Lymphocytes # (auto) 0.5 10 ^3/uL (0.4-5.4); Lymphocytes % (auto) 3.7 % (10.0-50.0); Mean Corpuscular Hemoglobin 30.1 pg (28.0-32.0); Mean Corpuscular Hgb Conc. 33.2 g/dL (32.0-36.0); Mean Corpuscular Volume 90.6 fL (80.0-100.0); Monocytes # (auto) 0.7 10 ^3/uL (0-1.3); Monocytes % (auto) 4.8 % (0.0-12.0); Neutrophils # (auto) 13.1 10 ^3/uL (1.6-8.6); Neutrophils % (auto) 90.8 % (37.0-80.0); Nucleated Red Blood Cells % 0.1 %; Platelet Count (auto) 170 10^3/uL (140-450); Red Blood Cells 3.95 10^6/uL (4.5-5.90); Red Cell Distribution Width 12.9 % (11.8-14.3); White Blood Cell 14.4 10^3/uL (4.4-10.8)
[2024-10-25 03:54] LABS: Chloride 101 mmol/L (98-107); Sodium 143 mmol/L (136-145)
[2024-10-25 03:55] LABS: Anion Gap 9 (5-15)
[2024-10-25 04:00] LABS: Blood Urea Nitrogen 18 mg/dL (9-23)
[2024-10-25 04:10] LABS: Calcium 8.4 mg/dL (8.7-10.4); Carbon Dioxide 33 mmol/L (20-31); Glucose 181 mg/dL (74-106); Potassium 3.3 mmol/L (3.5-5.1)
[2024-10-25] MEDS: POTASSIUM CHL 20MEQ/100ML 100 ML IV ONE ×2 (05:11→10:11)
--- NOTE | 2024-10-25 05:51 | DVH ---
CHEST RADIOGRAPH Indication: chf Technique: Single frontal view of the chest was obtained Comparison: XY CHEST PORTABLE on DOS: 10/24/24 FINDINGS: Lines and Tubes: Right central venous catheter terminates in the superior vena cava. The endotracheal tube terminates 7.7 cm above the rafa. The enteric tube courses below the left hemidiaphragm and t he tip extends outside the field of view. Lungs: Significant decrease in bibasilar opacities and decreased pulmonary venous congestion. Pleura: No effusion. No pneumothorax. Cardiomediastinal contours: Unremarkable Bones: No acute osseous abnormality. IMPRESSION: 1. Significantly improved aeration in the lungs.
[2024-10-25 06:22] LABS: Base Excess 5.4 mmol/L (-2.0-3.0)
--- NOTE | 2024-10-25 09:21 | DVHPN2 ---
Subjective Patient chemically sedated Reviewed: Care Plan, H&P, Labs, Medications Changes from previous H/P or p: No Changes General: Per HPI Eyes: No Pain, No Vision change, No Conjunctivae inflammation, No Eyelid inflammation, No Other, No Redness ENT: No Ear pain, No Ear discharge, No Nose pain, No Nose discharge, No Nose congestion, No Mouth pain, No Mouth swelling, No Throat pain, No Throat swelling, No Other Cardiovascular: No Chest Pain, No Palpitations, No Orthopnea, No Paroxysmal Noc. Dyspnea, No Edema, No Lt Headedness, No Other Respiratory: Cough; No Dry; Shortness of breath, SOB with excertion, Wheezing; No Hemoptysis, No Pleuritic Pain, No Sputum, No Other Gastrointestinal: No Nausea, No Vomiting, No Abdominal Pain, No Diarrhea, No Constipation, No Melena, No Hematochezia, No Other Genitourinary: No Dysuria, No Frequency, No Incontinence, No Hematuria, No Retention, No Other Musculoskeletal: No other, No neck pain, No shoulder pain, No arm pain, No back pain, No hand pain, No leg pain, No foot pain Skin: No Rash, No Lesions, No Jaundice, No Bruising, No Other Objective Vitals Vital Signs Date Time Temp Pulse Resp B/P (MAP) Pulse Ox O2 Delivery O2 Flow Rate FiO2 10/25/24 08:30 98.1 84 26 113/46 (68) 97 208.6 10/25/24 08:01 40 10/25/24 08:00 Mechanical Ventilator+ Intake/Output Intake and Output 10/25/24 07:00 Intake Total 3642.336 ml Output Total 1800 ml Balance 1842.336 ml Intake Oral 0 ml IV Total 3642.336 ml Output Urine Total 1800 ml General Appearance: moderate distress, Other (RN) HEENT: Atraumatic, PERRLA Lungs: Other (Bilateral wheezing. Peak pressure 40) Cardiovascular: Normal S1, Normal S2 Abdomen: Normal bowel sounds, Soft, No tenderness Genitourinary: No Apparent Abnormalities (Reeder catheter) Musculoskeletal: Other (Unable to assess) Neuro: Other (Unable to assess) Skin: Dry, Intact Psych/Mental Status: Other (Unable to assess) Medications Current Medications Medications Dose Ordered Sig/Chencho Route Start Time Stop Time Status Last Admin Dose Admin Ondansetron HCl 4 mg Q4HP PRN IV 10/22/24 13:45 Docusate Sodium 100 mg BIDPRN PRN PO 10/22/24 13:45 Acetaminophen 650 mg Q6HP PRN PO 10/22/24 13:45 Folic Acid 1 mg/ Multivitamins 10 ml/Magnesium Sulfate 8 meq/ Thiamine HCl 100 mg/Dextrose 1,013.2 ml @ 125.001 mls/hr DAILY@1800 INJ 10/22/24 18:00 10/24/24 18:09 125.001 MLS/HR Ceftriaxone Sodium 50 ml @ 100 mls/hr DAILY@09 IV 10/23/24 09:00 10/25/24 07:37 100 MLS/HR Vancomycin HCl 0 ml @ 0 mls/hr UD IV 10/22/24 15:45 Methylprednisolone Sodium Succinate 80 mg TID IV 10/22/24 22:00 10/25/24 05:11 80 MG Albuterol 2.5 mg Q4HR NEB 10/23/24 06:00 10/25/24 07:12 2.5 MG Ipratropium [place] 0.5 mg Q4HR NEB 10/23/24 06:00 10/25/24 07:12 0.5 MG Enoxaparin Sodium 40 mg DAILY SC 10/24/24 10:00 10/25/24 07:37 40 MG Rocuronium [place] 50 mg Q1HP PRN IV 10/23/24 12:45 10/23/24 13:34 50 MG Pantoprazole Sodium 40 mg DAILY IV 10/24/24 10:00 10/25/24 07:36 40 MG Enteral Nutritional Formula 1,000 ml 30ML/HR GT 10/23/24 13:00 Rocuronium [place] 1000 mg/ Dextrose 250 ml @ 12.48 mls/ hr Q20H2M IV 10/23/24 14:45 10/24/24 23:51 4.992 MLS/HR Budesonide 0.5 mg BID NEB 10/23/24 22:00 10/25/24 07:12 0.5 MG Vancomycin HCl 200 ml @ 200 mls/hr Q8H IV 10/23/24 23:00 10/24/24 14:45 200 MLS/HR Ketamine HCl 500 mg/Sodium Chloride 500 ml @ 6.24 mls/hr Q24H IV 10/23/24 19:15 10/24/24 14:39 24.96 MLS/HR Propofol 100 ml @ 3.204 mls/ hr Q24H IV 10/24/24 11:00 10/25/24 07:48 32.04 MLS/HR Midazolam HCl 50 ml @ 1 mls/hr Q24H IV 10/24/24 11:00 10/25/24 07:44 14 MLS/HR Fentanyl Citrate 250 ml @ 2.5 mls/hr Q24H IV 10/24/24 11:00 10/24/24 22:13 20 MLS/HR Laboratory Results Laboratory Tests 10/25/24 03:05 Chemistry Test 10/24/24 11:33 10/25/24 03:05 Calcium Level 9.0 mg/dL (8.7-10.4) 8.4 mg/dL (8.7-10.4) L Magnesium Level 2.5 mg/dL (1.6-2.6) Blood Gas Results Test 10/24/24 12:02 10/24/24 18:23 10/25/24 06:16 Arterial Blood pH 7.237 (7.350-7.450) 7.348 (7.350-7.450) 7.391 (7.350-7.450) FiO2 % 50.0 40.0 40.0 Microbiology Microbiology Date/Time Source Procedure Growth Status 10/24/24 09:31 Nose MRSA Screen - Final Complete 10/22/24 11:02 Blood Blood Culture - Preliminary NO GROWTH AFTER 48 HOURS OF INCUBATION. Resulted 10/22/24 10:43 Sputum Gram Stain - Final Resulted 10/22/24 10:43 Sputum Respiratory Culture - Preliminary Resulted Labs and/or images reviewed: Labs reviewed by me, Image(s) reviewed by me Assessment/Plan Assessment/Plan Impression: -acute asthma exacerbation -acute hypoxic and hypercarbic respiratory failure -sirs -history of alcoholism Plan: Events: Marked improvement with hypercarbic respiratory failure. Patient's peak pressures are now noted to be 29 mm of water. Ketamine drip has been off since yesterday evening. Plans to Wean off rocuronium drip. -chest x-ray reveals pulmonary vascular congestion. IV diuresis -repeat continuous albuterol treatment x1. -potassium replacement -repeat BMP after K replete -pulmonology consultation -continue current sedation -banana bag daily -continue IV Solu-Medrol, add Pulmicort b.i.d. -DuoNebs q.4 hours -repeat labs, chest x-ray, ABG in a.m. Critical care time spent with patient discussing and formulating plan of care: 40 minutes. This does not include time spent performing procedures. This medical document was created using an electronic medical record system with [employer] dictation system. Although this document has been carefully reviewed, there may still be some phonetic and typographical errors. These areas are purely typographical due to imperfections of the software programs, and do not reflect any compromise in the patient's medical care. Plan discussed with: Patient My Orders Orders - RAMA BENOIT NP Procedure Category Date Status Time Basic Metabolic Panel LAB 10/26/24 Verified 05:00 Basic Metabolic Panel LAB 10/27/24 Verified 05:00 Complete Blood Count LAB 10/26/24 Verified 05:00 Complete Blood Count LAB 10/27/24 Verified 05:00 Abg W/ Co-Ox RT 10/24/24 Logged 12:00 Chest Portable XY 10/25/24 Resulted 04:00 Abg W/ Co-Ox RT 10/25/24 Logged 04:00 Propofol (Diprivan) PHA 10/24/24 In Process 11:00 Midazolam Drip 50 PHA 10/24/24 In Process Mg/50ml (Versed Drip 5 11:00 Fentanyl Drip PHA 10/24/24 In Process 2500mcg/250mlns 11:00 Communication Order ORDERS 10/24/24 Transmitted 09:30 Ventilator Orders RT 10/24/24 Transmitted 12:18 Abg W/ Co-Ox RT 10/24/24 Logged 18:00 Albuterol Medneb PHA 10/25/24 Logged (Ventolin Medneb) 09:15 Potassium Chl PHA 10/25/24 Logged 20meq/100ml 09:15 Basic Metabolic Panel LAB 10/25/24 Transmitted 13:00 Magnesium LAB 10/25/24 Transmitted 13:00 Date of Service: October 25, 2024 Billing Provider: RAMA BENOIT NP Common Visit Codes: [id number] CARE 30-74 MIN RAMA BENOIT NP October 25, 2024 09:21
[2024-10-25] MEDS: ALBUTEROL SULF 2.5 MG/0.5ML(0.5%) NEB SOLN ONE (09:33)
[2024-10-25 12:41] LABS: Chloride 102 mmol/L (98-107); Potassium 3.9 mmol/L (3.5-5.1); Sodium 142 mmol/L (136-145)
[2024-10-25 12:42] LABS: Anion Gap 6 (5-15)
[2024-10-25 12:47] LABS: BUN/Creatinine Ratio 19.6 (10.0-20.0); Blood Urea Nitrogen 22 mg/dL (9-23)
[2024-10-25 12:51] LABS: Calcium 8.3 mg/dL (8.7-10.4); Carbon Dioxide 34 mmol/L (20-31); Glucose 150 mg/dL (74-106); Magnesium 2.9 mg/dL (1.6-2.6)
[2024-10-25] MEDS: VANCOMYCIN 750MG KIT 100 ML IV SCH (13:47)
--- NOTE | 2024-10-25 14:41 | DVHPN2 ---
Progress Note - Dictate Date Seen: October 25, 2024 Has the PT tested + for MRSA If YES, has PT been informed?: No Medical Necessity Reason Pt with a Central, PICC or Fol: No vital signs Vital Sign Date Time Temp Pulse Resp B/P (MAP) Pulse Ox O2 Delivery O2 Flow Rate FiO2 10/25/24 14:15 98.6 86 20 117/43 (67) 94 209.5 10/25/24 13:14 40 10/25/24 11:36 Mechanical Ventilator+ Total Intake and Output 10/24/24 10/24/24 10/25/24 13:00 21:00 05:00 Intake Total 1029.92 ml 1352.920 ml 1322.424 ml Output Total 1800 ml 950 ml 850 ml Balance -770.08 ml 402.920 ml 472.424 ml medications Current Medications Medications Dose Ordered Sig/Chencho Route Start Time Stop Time Status Last Admin Dose Admin Ondansetron HCl 4 mg Q4HP PRN IV 10/22/24 13:45 Docusate Sodium 100 mg BIDPRN PRN PO 10/22/24 13:45 Acetaminophen 650 mg Q6HP PRN PO 10/22/24 13:45 Folic Acid 1 mg/ Multivitamins 10 ml/Magnesium Sulfate 8 meq/ Thiamine HCl 100 mg/Dextrose 1,013.2 ml @ 125.001 mls/hr DAILY@1800 INJ 10/22/24 18:00 10/24/24 18:09 125.001 MLS/HR Ceftriaxone Sodium 50 ml @ 100 mls/hr DAILY@09 IV 10/23/24 09:00 10/25/24 07:37 100 MLS/HR Vancomycin HCl 0 ml @ 0 mls/hr UD IV 10/22/24 15:45 Methylprednisolone Sodium Succinate 80 mg TID IV 10/22/24 22:00 10/25/24 13:47 80 MG Albuterol 2.5 mg Q4HR NEB 10/23/24 06:00 10/25/24 14:33 2.5 MG Ipratropium [place] 0.5 mg Q4HR NEB 10/23/24 06:00 10/25/24 14:33 0.5 MG Enoxaparin Sodium 40 mg DAILY SC 10/24/24 10:00 10/25/24 07:37 40 MG Rocuronium [place] 50 mg Q1HP PRN IV 10/23/24 12:45 10/23/24 13:34 50 MG Pantoprazole Sodium 40 mg DAILY IV 10/24/24 10:00 10/25/24 07:36 40 MG Enteral Nutritional Formula 1,000 ml 30ML/HR GT 10/23/24 13:00 Budesonide 0.5 mg BID NEB 10/23/24 22:00 10/25/24 07:12 0.5 MG Ketamine HCl 500 mg/Sodium Chloride 500 ml @ 6.24 mls/hr Q24H IV 10/23/24 19:15 10/24/24 14:39 24.96 MLS/HR Propofol 100 ml @ 3.204 mls/ hr Q24H IV 10/24/24 11:00 10/25/24 10:45 32.04 MLS/HR Midazolam HCl 50 ml @ 1 mls/hr Q24H IV 10/24/24 11:00 10/25/24 12:47 14 MLS/HR Fentanyl Citrate 250 ml @ 2.5 mls/hr Q24H IV 10/24/24 11:00 10/25/24 10:11 20 MLS/HR Vancomycin HCl 100 ml @ 100 mls/hr Q8H IV 10/25/24 14:00 10/25/24 13:47 100 MLS/HR laboratory and microbiology Laboratory Tests 10/25/24 12:10 10/25/24 03:05 Test 10/25/24 12:10 Range/Units Serum Glucose 150 H 74-106 mg/dL Assessment/Plan severe asthma attack intubated acute resp failure neuromuscular paralysis events on mechanical ventilation s/p intubation off paralysis labs and imaging reviewed abg reviewed ventilator changes reviewed management plan sedation holiday daily if patient follows commands, proceed to weaning trial pressure support 11/30, extubate when ready steroids alb/atr abx nutrition gi and dvt proph critical care time 35 minutes Dietary Evaluation Review Comments: 1. Pt is on propofol, receiving fat energy 824kcal pt is on sucrose 170kcal from D5W 5% 1000ml out of MVI banan bag, recommend adding clinimix @41ml/hr for his protein needs. This protocol will support pt 1504 kcal, meeting his energy @ 129%, meeting his protein needs @33%. 2. 10/23 lab Mg 28H, consider remove MgSo4 from the MVI banana bag. Expected Outcomes/Goals: Inadeqaute protein support for intubation. Reassess needs when Pt has a more stablized medical condition and or his propofol infusion rate is changed. Plan discussed with: Other (Rn) ALLEN YIP MD October 25, 2024 14:41
[2024-10-25] MEDS: ALBUTEROL SULF 2.5 MG/0.5ML(0.5%) NEB SOLN NEB ONE (18:43)
[2024-10-26] VITALS (115 sets, daily range): BP systolic 115–156; BP diastolic 53–84; PULSE 55–92; RESP 18–27; TEMP 98.4–99; O2SAT 91–98
[2024-10-26 03:48] LABS: Basophils # (auto) 0 10 ^3/uL (0-0.2); Eosinophils # (auto) 0 10 ^3/uL (0-0.8); Hematocrit 36.2 % (41.0-53.0); Hemoglobin 12.1 g/dL (13.5-17.5); Lymphocytes # (auto) 0.6 10 ^3/uL (0.4-5.4); Lymphocytes % (auto) 4.1 % (10.0-50.0); Mean Corpuscular Hemoglobin 30.5 pg (28.0-32.0); Mean Corpuscular Hgb Conc. 33.4 g/dL (32.0-36.0); Mean Corpuscular Volume 91.4 fL (80.0-100.0); Monocytes # (auto) 0.7 10 ^3/uL (0-1.3); Monocytes % (auto) 5.4 % (0.0-12.0); Neutrophils # (auto) 12.5 10 ^3/uL (1.6-8.6); Neutrophils % (auto) 90.5 % (37.0-80.0); Platelet Count (auto) 174 10^3/uL (140-450); Red Blood Cells 3.96 10^6/uL (4.5-5.90); Red Cell Distribution Width 12.6 % (11.8-14.3); White Blood Cell 13.8 10^3/uL (4.4-10.8)
[2024-10-26 03:59] LABS: Chloride 104 mmol/L (98-107); Sodium 144 mmol/L (136-145)
[2024-10-26 04:00] LABS: Anion Gap 6 (5-15)
[2024-10-26 04:05] LABS: BUN/Creatinine Ratio 27.2 (10.0-20.0)
[2024-10-26 04:09] LABS: Blood Urea Nitrogen 28 mg/dL (9-23); Carbon Dioxide 34 mmol/L (20-31); Glucose 155 mg/dL (74-106)
[2024-10-26 07:19] LABS: Base Excess 3.6 mmol/L (-2.0-3.0)
[2024-10-26] MEDS: THIAMINE 100mg/ml INJ (200mg/2ml VIAL) IV SCH (07:30)
--- NOTE | 2024-10-26 07:59 | DVHPN2 ---
Subjective Patient chemically sedated Reviewed: Care Plan, H&P, Labs, Medications Changes from previous H/P or p: No Changes General: Per HPI Eyes: No Pain, No Vision change, No Conjunctivae inflammation, No Eyelid inflammation, No Other, No Redness ENT: No Ear pain, No Ear discharge, No Nose pain, No Nose discharge, No Nose congestion, No Mouth pain, No Mouth swelling, No Throat pain, No Throat swelling, No Other Cardiovascular: No Chest Pain, No Palpitations, No Orthopnea, No Paroxysmal Noc. Dyspnea, No Edema, No Lt Headedness, No Other Respiratory: Cough; No Dry; Shortness of breath, SOB with excertion, Wheezing; No Hemoptysis, No Pleuritic Pain, No Sputum, No Other Gastrointestinal: No Nausea, No Vomiting, No Abdominal Pain, No Diarrhea, No Constipation, No Melena, No Hematochezia, No Other Genitourinary: No Dysuria, No Frequency, No Incontinence, No Hematuria, No Retention, No Other Musculoskeletal: No other, No neck pain, No shoulder pain, No arm pain, No back pain, No hand pain, No leg pain, No foot pain Skin: No Rash, No Lesions, No Jaundice, No Bruising, No Other Objective Vitals Vital Signs Date Time Temp Pulse Resp B/P (MAP) Pulse Ox O2 Delivery O2 Flow Rate FiO2 10/26/24 06:15 98.4 76 20 125/59 (81) 97 209.1 10/26/24 06:00 Mechanical Ventilator+ 50 50 Intake/Output Intake and Output 10/26/24 07:00 Intake Total 2155.404 ml Output Total 1850 ml Balance 305.404 ml Intake Oral 0 ml IV Total 2155.404 ml Output Urine Total 1850 ml General Appearance: moderate distress, Other (RN) HEENT: Atraumatic, PERRLA Lungs: Other (Bilateral wheezing. Peak pressure 40) Cardiovascular: Normal S1, Normal S2 Abdomen: Normal bowel sounds, Soft, No tenderness Genitourinary: No Apparent Abnormalities (Reeder catheter) Musculoskeletal: Other (Unable to assess) Neuro: Other (Unable to assess) Skin: Dry, Intact Psych/Mental Status: Other (Unable to assess) Medications Current Medications Medications Dose Ordered Sig/Chencho Route Start Time Stop Time Status Last Admin Dose Admin Ondansetron HCl 4 mg Q4HP PRN IV 10/22/24 13:45 Docusate Sodium 100 mg BIDPRN PRN PO 10/22/24 13:45 Acetaminophen 650 mg Q6HP PRN PO 10/22/24 13:45 Ceftriaxone Sodium 50 ml @ 100 mls/hr DAILY@09 IV 10/23/24 09:00 10/26/24 07:30 100 MLS/HR Methylprednisolone Sodium Succinate 80 mg TID IV 10/22/24 22:00 10/26/24 05:02 80 MG Albuterol 2.5 mg Q4HR NEB 10/23/24 06:00 10/26/24 06:39 2.5 MG Ipratropium [place] 0.5 mg Q4HR NEB 10/23/24 06:00 10/26/24 06:40 0.5 MG Enoxaparin Sodium 40 mg DAILY SC 10/24/24 10:00 10/26/24 07:31 40 MG Rocuronium [place] 50 mg Q1HP PRN IV 10/23/24 12:45 10/23/24 13:34 50 MG Pantoprazole Sodium 40 mg DAILY IV 10/24/24 10:00 10/26/24 07:30 40 MG Enteral Nutritional Formula 1,000 ml 30ML/HR GT 10/23/24 13:00 Budesonide 0.5 mg BID NEB 10/23/24 22:00 10/26/24 06:39 0.5 MG Ketamine HCl 500 mg/Sodium Chloride 500 ml @ 6.24 mls/hr Q24H IV 10/23/24 19:15 10/24/24 14:39 24.96 MLS/HR Propofol 100 ml @ 3.204 mls/ hr Q24H IV 10/24/24 11:00 10/26/24 05:02 32.04 MLS/HR Midazolam HCl 50 ml @ 1 mls/hr Q24H IV 10/24/24 11:00 10/26/24 07:32 15 MLS/HR Fentanyl Citrate 250 ml @ 2.5 mls/hr Q24H IV 10/24/24 11:00 10/26/24 03:15 30 MLS/HR Thiamine HCl 100 mg DAILY IV 10/26/24 10:00 10/26/24 07:30 100 MG Laboratory Results Laboratory Tests 10/26/24 03:28 Chemistry Test 10/25/24 12:10 10/26/24 03:28 Calcium Level 8.3 mg/dL (8.7-10.4) L 9.0 mg/dL (8.7-10.4) Magnesium Level 2.9 mg/dL (1.6-2.6) H Blood Gas Results Test 10/26/24 07:11 Arterial Blood pH 7.325 (7.350-7.450) FiO2 % 50.0 Microbiology Microbiology Date/Time Source Procedure Growth Status 10/24/24 09:31 Nose MRSA Screen - Final Complete 10/22/24 11:02 Blood Blood Culture - Preliminary NO GROWTH AFTER 72 HOURS OF INCUBATION. Resulted 10/22/24 10:43 Sputum Gram Stain - Final Complete 10/22/24 10:43 Respiratory Culture - Final Haemophilus influenzae Complete Labs and/or images reviewed: Labs reviewed by me, Image(s) reviewed by me Assessment/Plan Assessment/Plan Impression: -acute asthma exacerbation -acute hypoxic and hypercarbic respiratory failure -sirs -history of alcoholism -community-acquired pneumonia with Haemophilus influenzae Plan: Events: Patient now off rocuronium drip. Continues to be heavily sedated on maximum dose of fentanyl, propofol, Versed. Continues to have some expiratory wheezing. Peak pressure 39. -start bowel regimen -deescalate antibiotic therapy. Stop vancomycin, continue Rocephin -pulmonology consultation: Spontaneous breathing trial and ventilator settings per their discretion -continue current sedation, recommend weaning sedation -stop banana bag, continue tube feeding -continue IV Solu-Medrol, add Pulmicort b.i.d. -DuoNebs q.4 hours -repeat labs, chest x-ray, ABG in a.m. Critical care time spent with patient discussing and formulating plan of care: 40 minutes. This does not include time spent performing procedures. This medical document was created using an electronic medical record system with [employer] dictation system. Although this document has been carefully reviewed, there may still be some phonetic and typographical errors. These areas are purely typographical due to imperfections of the software programs, and do not reflect any compromise in the patient's medical care. Plan discussed with: Patient, Other (Father, RN) My Orders Orders - RAMA BENOIT NP Procedure Category Date Status Time Respiratory Misc. RT 10/25/24 Transmitted Order 10:19 Thiamine Inj PHA 10/26/24 In Process 10:00 Date of Service: October 26, 2024 Billing Provider: RAMA BENOIT NP Common Visit Codes: [id number] CARE 30-74 MIN RAMA BENOIT NP October 26, 2024 07:59
[2024-10-26] MEDS: FUROSEMIDE 40 MG/4 ML VIAL IV ONE (08:15)
[2024-10-26] MEDS: LACTULOSE 20Gm/30ML SOLN GT SCH (09:00)
--- NOTE | 2024-10-26 11:17 | DVH ---
CLINICAL INFORMATION: 34 years old, Male; intubated. TECHNIQUE: Single AP portable chest radiograph was obtained. COMPARISON: XY CHEST PORTABLE on DOS: 10/25/24, XY CHEST PORTABLE on DOS: 10/24/24, XY CHEST XRAY 1 VIE W on DOS: 10/23/24 FINDINGS: Satisfactory positioning of the endotracheal tube, enteric tube, and right internal jugular central v enous catheter. Small left pleural effusion with overlying atelectasis and consolidation, new compare d to the prior exam. Atelectasis in the right lung base without focal consolidation visualized. No pn eumothorax. No other significant interval change. IMPRESSION: 1. Satisfactory positioning of the endotracheal tube, enteric tube, and right internal jugular centra l venous catheter. 2. Small left pleural effusion with overlying atelectasis and consolidation, new compared to the prio r exam.
[2024-10-26] MEDS: METOCLOPRAMIDE HCL 5MG/ml INJ 2ml VIAL IV SCH (12:41)
[2024-10-26] MEDS: DEXMEDETOMIDINE HCL IN D5W 100 ML IV SCH (20:36)
[2024-10-27] VITALS (113 sets, daily range): BP systolic 86–189; BP diastolic 51–92; PULSE 55–136; RESP 14–26; TEMP 98.2–100.2; O2SAT 87–98
[2024-10-27] MEDS: hydrALAZINE HCL 20 MG/ML VL IV PRN (03:30)
[2024-10-27 03:40] LABS: Basophils # (auto) 0 10 ^3/uL (0-0.2); Basophils % (auto) 0.1 % (0.0-2.0); Eosinophils # (auto) 0 10 ^3/uL (0-0.8); Hematocrit 38.3 % (41.0-53.0); Lymphocytes # (auto) 0.6 10 ^3/uL (0.4-5.4); Lymphocytes % (auto) 5.6 % (10.0-50.0); Mean Corpuscular Hemoglobin 30.8 pg (28.0-32.0); Mean Corpuscular Volume 90.6 fL (80.0-100.0); Monocytes # (auto) 0.6 10 ^3/uL (0-1.3); Monocytes % (auto) 5.5 % (0.0-12.0); Neutrophils # (auto) 9.5 10 ^3/uL (1.6-8.6); Neutrophils % (auto) 88.8 % (37.0-80.0); Nucleated Red Blood Cells % 0.2 %; Platelet Count (auto) 178 10^3/uL (140-450); Red Blood Cells 4.23 10^6/uL (4.5-5.90); Red Cell Distribution Width 12.7 % (11.8-14.3); White Blood Cell 10.7 10^3/uL (4.4-10.8)
[2024-10-27 03:49] LABS: Chloride 104 mmol/L (98-107)
[2024-10-27 03:50] LABS: Anion Gap 8 (5-15)
[2024-10-27 03:51] LABS: Calcium 8.7 mg/dL (8.7-10.4)
[2024-10-27 03:55] LABS: BUN/Creatinine Ratio 37.4 (10.0-20.0)
[2024-10-27 03:56] LABS: Carbon Dioxide 34 mmol/L (20-31); Sodium 146 mmol/L (136-145)
[2024-10-27 03:57] LABS: Blood Urea Nitrogen 34 mg/dL (9-23); Glucose 135 mg/dL (74-106); Magnesium 2.9 mg/dL (1.6-2.6)
--- NOTE | 2024-10-27 04:33 | DVH ---
CHEST RADIOGRAPH Indication: INTUBATED Technique: Single frontal view of the chest was obtained Comparison: XY CHEST PORTABLE on DOS: 10/26/24, XY CHEST PORTABLE on DOS: 10/25/24, XY CHEST PORTABLE o n DOS: 10/24/24 IMPRESSION: Heart is stable in size. Airspace opacity in the left lung base appears increased with suspected smal l left pleural effusion. No pneumothorax. Endotracheal tube tip approximately 2 cm from the rafa. Enteric tube tip is in the stomach. Right IJ catheter tip at superior vena cava.
[2024-10-27 10:22] LABS: Base Excess 8.1 mmol/L (-2.0-3.0)
[2024-10-27] MEDS: methylPREDNISolone SOD SUCC 40 MG/ML VL IV SCH (10:26)
[2024-10-27] MEDS: NICARDIPINE HCL IN SODIUM CHLO 200 ML IV SCH (10:27)
--- NOTE | 2024-10-27 12:01 | DVHPN2 ---
Subjective Patient chemically sedated Reviewed: Care Plan, H&P, Labs, Medications Changes from previous H/P or p: No Changes General: Per HPI Eyes: No Pain, No Vision change, No Conjunctivae inflammation, No Eyelid inflammation, No Other, No Redness ENT: No Ear pain, No Ear discharge, No Nose pain, No Nose discharge, No Nose congestion, No Mouth pain, No Mouth swelling, No Throat pain, No Throat swelling, No Other Cardiovascular: No Chest Pain, No Palpitations, No Orthopnea, No Paroxysmal Noc. Dyspnea, No Edema, No Lt Headedness, No Other Respiratory: Cough; No Dry; Shortness of breath, SOB with excertion, Wheezing; No Hemoptysis, No Pleuritic Pain, No Sputum, No Other Gastrointestinal: No Nausea, No Vomiting, No Abdominal Pain, No Diarrhea, No Constipation, No Melena, No Hematochezia, No Other Genitourinary: No Dysuria, No Frequency, No Incontinence, No Hematuria, No Retention, No Other Musculoskeletal: No other, No neck pain, No shoulder pain, No arm pain, No back pain, No hand pain, No leg pain, No foot pain Skin: No Rash, No Lesions, No Jaundice, No Bruising, No Other Objective Vitals Vital Signs Date Time Temp Pulse Resp B/P (MAP) Pulse Ox O2 Delivery O2 Flow Rate FiO2 10/27/24 11:33 40 10/27/24 11:32 20 96 Mechanical Ventilator+ 10/27/24 11:01 136 179/86 (117) 10/27/24 10:46 99.9 211.8 Intake/Output Intake and Output 10/27/24 07:00 Intake Total 1441.523 ml Output Total 3850 ml Balance -2408.477 ml Intake Oral 50 ml IV Total 1355.523 ml Tube Feeding 36 ml Output Urine Total 3850 ml General Appearance: moderate distress, Other (RN) HEENT: Atraumatic, PERRLA Lungs: Other (Bilateral wheezing. Peak pressure 40) Cardiovascular: Normal S1, Normal S2 Abdomen: Normal bowel sounds, Soft, No tenderness Genitourinary: No Apparent Abnormalities (Reeder catheter) Musculoskeletal: Other (Unable to assess) Neuro: Other (Unable to assess) Skin: Dry, Intact Psych/Mental Status: Other (Unable to assess) Medications Current Medications Medications Dose Ordered Sig/[place] Route Start Time Stop Time Status Last Admin Dose Admin Ondansetron HCl 4 mg Q4HP PRN IV 10/22/24 13:45 Docusate Sodium 100 mg BIDPRN PRN PO 10/22/24 13:45 Acetaminophen 650 mg Q6HP PRN PO 10/22/24 13:45 Ceftriaxone Sodium 50 ml @ 100 mls/hr DAILY@09 IV 10/23/24 09:00 10/27/24 07:14 100 MLS/HR Albuterol 2.5 mg Q4HR NEB 10/23/24 06:00 10/27/24 10:08 2.5 MG Ipratropium [place] 0.5 mg Q4HR NEB 10/23/24 06:00 10/27/24 10:08 0.5 MG Enoxaparin Sodium 40 mg DAILY SC 10/24/24 10:00 10/27/24 07:15 40 MG Rocuronium [place] 50 mg Q1HP PRN IV 10/23/24 12:45 10/23/24 13:34 50 MG Pantoprazole Sodium 40 mg DAILY IV 10/24/24 10:00 10/27/24 07:14 40 MG Enteral Nutritional Formula 1,000 ml 30ML/HR GT 10/23/24 13:00 Budesonide 0.5 mg BID NEB 10/23/24 22:00 10/27/24 10:08 0.5 MG Propofol 100 ml @ 3.204 mls/ hr Q24H IV 10/24/24 11:00 10/27/24 09:22 19.224 MLS/HR Midazolam HCl 50 ml @ 1 mls/hr Q24H IV 10/24/24 11:00 10/27/24 07:38 2 MLS/HR Fentanyl Citrate 250 ml @ 2.5 mls/hr Q24H IV 10/24/24 11:00 10/27/24 07:13 15 MLS/HR Thiamine HCl 100 mg DAILY IV 10/26/24 10:00 10/27/24 07:14 100 MG Lactulose 30 ml BID GT 10/26/24 10:00 10/27/24 07:14 30 ML Hydralazine HCl 10 mg Q6HP PRN IV 10/27/24 03:30 10/27/24 08:59 10 MG Methylprednisolone Sodium Succinate 80 mg BID IV 10/27/24 10:19 10/27/24 10:26 80 MG Nicardipine/ Sodium Chloride 200 ml @ 50 mls/hr Q4H IV 10/27/24 10:30 10/27/24 10:27 50 MLS/HR Diltiazem HCl 30 mg Q6HR GT 10/27/24 12:00 UNV Laboratory Results Laboratory Tests 10/27/24 03:00 Chemistry Test 10/27/24 03:00 Calcium Level 8.7 mg/dL (8.7-10.4) Magnesium Level 2.9 mg/dL (1.6-2.6) H Blood Gas Results Test 10/27/24 10:18 Arterial Blood pH 7.439 (7.350-7.450) FiO2 % 50.0 Microbiology Microbiology Date/Time Source Procedure Growth Status 10/24/24 09:31 Nose MRSA Screen - Final Complete 10/22/24 11:02 Blood Blood Culture - Final NO GROWTH AFTER 5 DAYS OF INCUBATION. Complete 10/22/24 10:43 Sputum Gram Stain - Final Complete 10/22/24 10:43 Respiratory Culture - Final Haemophilus influenzae Complete Labs and/or images reviewed: Labs reviewed by me, Image(s) reviewed by me Assessment/Plan Assessment/Plan Impression: -acute asthma exacerbation -acute hypoxic and hypercarbic respiratory failure -sirs -history of alcoholism -community-acquired pneumonia with Haemophilus influenzae Plan: Events: Peak pressures normalized. Patient off rocuronium. Proceed to weaned off sedation and attempt CPAP trial once appropriate. Patient found to be somewhat tachycardic with sedation weaning. Hold all beta blockers given severe asthma exacerbation. We will attempt to use diltiazem via G-tube to control heart rate. Nicardipine for blood pressure control -start bowel regimen -continue Rocephin -pulmonology consultation: Spontaneous breathing trial and ventilator settings per their discretion -continue current sedation, recommend weaning sedation -continue tube feeding -continue IV Solu-Medrol, add Pulmicort b.i.d. -DuoNebs q.4 hours -repeat labs, chest x-ray, ABG in a.m. Critical care time spent with patient discussing and formulating plan of care: 40 minutes. This does not include time spent performing procedures. This medical document was created using an electronic medical record system with [email or web address] system. Although this document has been carefully reviewed, there may still be some phonetic and typographical errors. These areas are purely typographical due to imperfections of the software programs, and do not reflect any compromise in the patient's medical care. Plan discussed with: Patient, Other (RN) My Orders Orders - RAMA BENOIT NP Procedure Category Date Status Time Dietary NOTICE 10/26/24 Transmitted Recommendations 19:17 Methylprednisolone PHA 10/27/24 In Process Sod Succ (Solu Medrol 10:19 Abg W/ Co-Ox RT 10/27/24 Logged 10:06 Nicardipine Hcl In PHA 10/27/24 In Process Sodium Chlo (Cardene 10:30 Basic Metabolic Panel LAB 10/28/24 Verified 05:00 Basic Metabolic Panel LAB 10/29/24 Verified 05:00 Basic Metabolic Panel LAB 10/30/24 Verified 05:00 Complete Blood Count LAB 10/28/24 Verified 05:00 Complete Blood Count LAB 10/29/24 Verified 05:00 Complete Blood Count LAB 10/30/24 Verified 05:00 Chest Portable XY 10/28/24 Logged 04:00 Abg W/ Co-Ox RT 10/28/24 Logged 05:00 Abg W/ Co-Ox RT 10/29/24 Logged 05:00 Abg W/ Co-Ox RT 10/30/24 Logged 05:00 Cpap/Sed Vacation Med ORDERS 10/27/24 Transmitted Weaning 10:36 Cpap Trial For Am ORDERS 10/28/24 Transmitted 08:00 Diltiazem Immediate PHA 10/27/24 Logged Releas Tab (Cardizem 12:00 Date of Service: Oct 27, 2024 Billing Provider: RAMA BENOIT NP Common Visit Codes: [id number] CARE 30-74 MIN RAMA BENOIT NP Oct 27, 2024 12:01
--- NOTE | 2024-10-27 12:09 | DVHPN2 ---
Progress Note - Dictate Date Seen: Oct 27, 2024 Has the PT tested + for MRSA If YES, has PT been informed?: No Medical Necessity Reason Pt with a Central, PICC or Fol: No vital signs Vital Sign Date Time Temp Pulse Resp B/P (MAP) Pulse Ox O2 Delivery O2 Flow Rate FiO2 10/27/24 11:58 105 24 147/59 (88) 92 40 10/27/24 11:32 Mechanical Ventilator+ 10/27/24 10:46 99.9 211.8 Total Intake and Output 10/26/24 10/26/24 10/27/24 15:00 23:00 07:00 Intake Total 620.036 ml 468.970 ml 352.517 ml Output Total 2500 ml 1350 ml Balance 620.036 ml -2031.030 ml -997.483 ml medications Current Medications Medications Dose Ordered Sig/Chencho Route Start Time Stop Time Status Last Admin Dose Admin Ondansetron HCl 4 mg Q4HP PRN IV 10/22/24 13:45 Docusate Sodium 100 mg BIDPRN PRN PO 10/22/24 13:45 Acetaminophen 650 mg Q6HP PRN PO 10/22/24 13:45 Ceftriaxone Sodium 50 ml @ 100 mls/hr DAILY@09 IV 10/23/24 09:00 10/27/24 07:14 100 MLS/HR Albuterol 2.5 mg Q4HR NEB 10/23/24 06:00 10/27/24 10:08 2.5 MG Ipratropium [place] 0.5 mg Q4HR NEB 10/23/24 06:00 10/27/24 10:08 0.5 MG Enoxaparin Sodium 40 mg DAILY SC 10/24/24 10:00 10/27/24 07:15 40 MG Rocuronium [place] 50 mg Q1HP PRN IV 10/23/24 12:45 10/23/24 13:34 50 MG Pantoprazole Sodium 40 mg DAILY IV 10/24/24 10:00 10/27/24 07:14 40 MG Enteral Nutritional Formula 1,000 ml 30ML/HR GT 10/23/24 13:00 Budesonide 0.5 mg BID NEB 10/23/24 22:00 10/27/24 10:08 0.5 MG Propofol 100 ml @ 3.204 mls/ hr Q24H IV 10/24/24 11:00 10/27/24 09:22 19.224 MLS/HR Midazolam HCl 50 ml @ 1 mls/hr Q24H IV 10/24/24 11:00 10/27/24 07:38 2 MLS/HR Fentanyl Citrate 250 ml @ 2.5 mls/hr Q24H IV 10/24/24 11:00 10/27/24 07:13 15 MLS/HR Thiamine HCl 100 mg DAILY IV 10/26/24 10:00 10/27/24 07:14 100 MG Lactulose 30 ml BID GT 10/26/24 10:00 10/27/24 07:14 30 ML Hydralazine HCl 10 mg Q6HP PRN IV 10/27/24 03:30 10/27/24 08:59 10 MG Methylprednisolone Sodium Succinate 80 mg BID IV 10/27/24 10:19 10/27/24 10:26 80 MG Nicardipine/ Sodium Chloride 200 ml @ 50 mls/hr Q4H IV 10/27/24 10:30 10/27/24 10:27 50 MLS/HR Diltiazem HCl 30 mg Q6HR GT 10/27/24 12:00 UNV laboratory and microbiology Laboratory Tests 10/27/24 03:00 Test 10/27/24 03:00 Range/Units Serum Glucose 135 H 74-106 mg/dL Assessment/Plan severe asthma attack intubated acute resp failure h/o alcohol abuse events on mechanical ventilation s/p intubation off paralysis agitated/altered ?withdrawal add librium cont sedatives auto-peep better CXR and labs stable management plan continue vent support daily weaning steroids alb/atr abx nutrition gi and dvt proph critical care time 35 minutes Dietary Evaluation Review Comments: 1. Pt is on propofol, receiving fat energy 824kcal pt is on sucrose 170kcal from D5W 5% 1000ml out of MVI banan bag, recommend adding clinimix @41ml/hr for his protein needs. This protocol will support pt 1504 kcal, meeting his energy @ 129%, meeting his protein needs @33%. 2. 10/23 lab Mg 28H, consider remove MgSo4 from the MVI banana bag. Expected Outcomes/Goals: Inadeqaute protein support for intubation. Reassess needs when Pt has a more stablized medical condition and or his propofol infusion rate is changed. Plan discussed with: Other (rn) ALLEN YIP MD Oct 27, 2024 12:09
[2024-10-27] MEDS: chlordiazePOXIDE HCL 25 MG CAP PO ONE (14:16)
[2024-10-27] MEDS: dilTIAZem HCL 60 MG TAB GT SCH (14:17)
[2024-10-27] MEDS: chlordiazePOXIDE HCL 25 MG CAP PO SCH (17:28)
[2024-10-27] MEDS: Glucerna 1.2 Cal 1Liter BOTTLE GT SCH (20:45)
[2024-10-28] VITALS (106 sets, daily range): BP systolic 107–179; BP diastolic 50–97; PULSE 52–135; RESP 14–29; TEMP 97.5–100.8; O2SAT 89–98
[2024-10-28] MEDS: ACETAMINOPHEN 325 MG TAB PO PRN (00:59)
[2024-10-28 04:20] LABS: Basophils # (auto) 0 10 ^3/uL (0-0.2); Basophils % (auto) 0.1 % (0.0-2.0); Chloride 108 mmol/L (98-107); Eosinophils # (auto) 0 10 ^3/uL (0-0.8); Hematocrit 40.3 % (41.0-53.0); Hemoglobin 13.5 g/dL (13.5-17.5); Lymphocytes # (auto) 0.7 10 ^3/uL (0.4-5.4); Lymphocytes % (auto) 6.1 % (10.0-50.0); Mean Corpuscular Hemoglobin 30.4 pg (28.0-32.0); Mean Corpuscular Hgb Conc. 33.6 g/dL (32.0-36.0); Mean Corpuscular Volume 90.3 fL (80.0-100.0); Monocytes # (auto) 0.9 10 ^3/uL (0-1.3); Monocytes % (auto) 7.7 % (0.0-12.0); Neutrophils # (auto) 10.3 10 ^3/uL (1.6-8.6); Neutrophils % (auto) 86.1 % (37.0-80.0); Nucleated Red Blood Cells % 0.2 %; Platelet Count (auto) 186 10^3/uL (140-450); Potassium 3.4 mmol/L (3.5-5.1); Red Blood Cells 4.46 10^6/uL (4.5-5.90); Red Cell Distribution Width 12.7 % (11.8-14.3); Sodium 149 mmol/L (136-145)
[2024-10-28 04:21] LABS: Anion Gap 9 (5-15); Calcium 8.6 mg/dL (8.7-10.4); Carbon Dioxide 32 mmol/L (20-31)
[2024-10-28 04:26] LABS: BUN/Creatinine Ratio 38.6 (10.0-20.0)
--- NOTE | 2024-10-28 04:44 | DVH ---
CHEST RADIOGRAPH Indication: device placement Technique: Single frontal view of the chest was obtained COMPARISON: XY CHEST PORTABLE on DOS: 10/27/24, XY CHEST PORTABLE on DOS: 10/26/24, XY CHEST PORTABLE on DOS: 10/25/24, XY CHEST PORTABLE on DOS: 10/24/24, XY CHEST XRAY 1 VIEW on DOS: 10/23/24 FINDINGS: Lines and Tubes: Endotracheal tube, enteric catheter and right central venous catheter in satisfactor y position. Lungs: Multifocal airspace disease Pleura: No effusion. No pneumothorax. Cardiomediastinal contours: Unremarkable Bones: Unremarkable IMPRESSION: Lines and tubes in satisfactory position. No significant interval change.
[2024-10-28 05:01] LABS: Blood Urea Nitrogen 34 mg/dL (9-23); Glucose 130 mg/dL (74-106)
[2024-10-28 09:01] LABS: Base Excess 4.1 mmol/L (-2.0-3.0)
[2024-10-28] MEDS ORDERED: Glucerna 1.2 Cal 1Liter BOTTLE GT SCH (11:00)
--- NOTE | 2024-10-28 11:01 | DVHPN2 ---
Subjective Patient chemically sedated Reviewed: Care Plan, H&P, Labs, Medications Changes from previous H/P or p: No Changes General: Per HPI Eyes: No Pain, No Vision change, No Conjunctivae inflammation, No Eyelid inflammation, No Other, No Redness ENT: No Ear pain, No Ear discharge, No Nose pain, No Nose discharge, No Nose congestion, No Mouth pain, No Mouth swelling, No Throat pain, No Throat swelling, No Other Cardiovascular: No Chest Pain, No Palpitations, No Orthopnea, No Paroxysmal Noc. Dyspnea, No Edema, No Lt Headedness, No Other Respiratory: Cough; No Dry; Shortness of breath, SOB with excertion, Wheezing; No Hemoptysis, No Pleuritic Pain, No Sputum, No Other Gastrointestinal: No Nausea, No Vomiting, No Abdominal Pain, No Diarrhea, No Constipation, No Melena, No Hematochezia, No Other Genitourinary: No Dysuria, No Frequency, No Incontinence, No Hematuria, No Retention, No Other Musculoskeletal: No other, No neck pain, No shoulder pain, No arm pain, No back pain, No hand pain, No leg pain, No foot pain Skin: No Rash, No Lesions, No Jaundice, No Bruising, No Other Objective Vitals Vital Signs Date Time Temp Pulse Resp B/P (MAP) Pulse Ox O2 Delivery O2 Flow Rate FiO2 10/28/24 10:45 98.6 72 20 128/67 (87) 90 209.5 10/28/24 10:15 40 10/28/24 09:30 Mechanical Ventilator+ Intake/Output Intake and Output 10/28/24 07:00 Intake Total 1878.825 ml Output Total 2250 ml Balance -371.175 ml Intake Oral 100 ml IV Total 1630.825 ml Tube Feeding 148 ml Output Urine Total 2250 ml General Appearance: moderate distress, Other (RN) HEENT: Atraumatic, PERRLA Lungs: Other (Bilateral wheezing. Peak pressure 40) Cardiovascular: Normal S1, Normal S2 Abdomen: Normal bowel sounds, Soft, No tenderness Genitourinary: No Apparent Abnormalities (Reeder catheter) Musculoskeletal: Other (Unable to assess) Neuro: Cranial nerves 3-12 NL, Other (Unable to assess) Skin: Dry, Intact Psych/Mental Status: Other (Unable to assess) Medications Current Medications Medications Dose Ordered Sig/Chencho Route Start Time Stop Time Status Last Admin Dose Admin Ondansetron HCl 4 mg Q4HP PRN IV 10/22/24 13:45 Docusate Sodium 100 mg BIDPRN PRN PO 10/22/24 13:45 Acetaminophen 650 mg Q6HP PRN PO 10/22/24 13:45 10/28/24 00:59 650 MG Ceftriaxone Sodium 50 ml @ 100 mls/hr DAILY@09 IV 10/23/24 09:00 10/28/24 10:01 100 MLS/HR Albuterol 2.5 mg Q4HR [facility] 10/23/24 06:00 10/28/24 10:15 2.5 MG Ipratropium [place] 0.5 mg Q4HR NEB 10/23/24 06:00 10/28/24 10:15 0.5 MG Enoxaparin Sodium 40 mg DAILY SC 10/24/24 10:00 10/28/24 10:02 40 MG Rocuronium [place] 50 mg Q1HP PRN IV 10/23/24 12:45 10/23/24 13:34 50 MG Pantoprazole Sodium 40 mg DAILY IV 10/24/24 10:00 10/28/24 10:02 40 MG Enteral Nutritional Formula 1,000 ml 30ML/HR GT 10/23/24 13:00 10/27/24 20:45 1,000 ML Budesonide 0.5 mg BID [facility] 10/23/24 22:00 10/28/24 06:50 0.5 MG Propofol 100 ml @ 3.204 mls/ hr Q24H IV 10/24/24 11:00 10/28/24 09:51 22.428 MLS/HR Midazolam HCl 50 ml @ 1 mls/hr Q24H IV 10/24/24 11:00 10/28/24 07:57 10 MLS/HR Fentanyl Citrate 250 ml @ 2.5 mls/hr Q24H IV 10/24/24 11:00 10/28/24 04:55 25 MLS/HR Thiamine HCl 100 mg DAILY IV 10/26/24 10:00 10/28/24 10:02 100 MG Lactulose 30 ml BID GT 10/26/24 10:00 10/28/24 10:01 30 ML Hydralazine HCl 10 mg Q6HP PRN IV 10/27/24 03:30 10/27/24 08:59 10 MG Methylprednisolone Sodium Succinate 80 mg BID IV 10/27/24 10:19 10/28/24 10:02 80 MG Nicardipine/ Sodium Chloride 200 ml @ 50 mls/hr Q4H IV 10/27/24 10:30 10/27/24 12:20 100 MLS/HR Diltiazem HCl 30 mg Q6HR GT 10/27/24 12:00 10/28/24 04:56 30 MG Chlordiazepoxide HCl 25 mg Q6HR PO 10/27/24 18:00 10/28/24 04:56 25 MG Laboratory Results Laboratory Tests 10/28/24 03:45 Chemistry Test 10/28/24 03:45 Calcium Level 8.6 mg/dL (8.7-10.4) L Blood Gas Results Test 10/28/24 07:17 Arterial Blood pH 7.396 (7.350-7.450) FiO2 % 40.0 Microbiology Microbiology Date/Time Source Procedure Growth Status 10/24/24 09:31 Nose MRSA Screen - Final Complete 10/22/24 11:02 Blood Blood Culture - Final NO GROWTH AFTER 5 DAYS OF INCUBATION. Complete 10/22/24 10:43 Sputum Gram Stain - Final Complete 10/22/24 10:43 Respiratory Culture - Final Haemophilus influenzae Complete Labs and/or images reviewed: Labs reviewed by me, Image(s) reviewed by me Assessment/Plan Assessment/Plan Impression: -acute asthma exacerbation -acute hypoxic and hypercarbic respiratory failure -sirs -history of alcoholism -community-acquired pneumonia with Haemophilus influenzae Plan: Events: Patient heavily sedated. Started on Librium via G-tube yesterday. Continues to have normal peak pressures. Discussed with primary nurse to start weaning sedation. Plan of care also discussed with the patient's father who was bedside. -start bowel regimen -continue Rocephin -pulmonology consultation: Spontaneous breathing trial and ventilator settings per their discretion -continue current sedation, recommend weaning sedation -continue tube feeding -continue IV Solu-Medrol, add Pulmicort b.i.d. -DuoNebs q.4 hours -repeat labs, chest x-ray, ABG in a.m. Critical care time spent with patient discussing and formulating plan of care: 40 minutes. This does not include time spent performing procedures. This medical document was created using an electronic medical record system with Dragon computerized dictation system. Although this document has been carefully reviewed, there may still be some phonetic and typographical errors. These areas are purely typographical due to imperfections of the software programs, and do not reflect any compromise in the patient's medical care. Plan discussed with: Patient, Other (RN) My Orders Orders - RAMA BENOIT NP Procedure Category Date Status Time Diltiazem Immediate PHA 10/27/24 In Process Releas Tab (Cardizem 12:00 Methylprednisolone PHA 10/28/24 Transmitted Sod Succ (Solu Medrol 22:00 Nutritional PHA 10/28/24 Transmitted Supplements (Glucerna 11:00 Date of Service: Oct 28, 2024 Billing Provider: RAMA BENOIT NP Common Visit Codes: [id number] CARE 30-74 MIN RAMA BENOIT NP Oct 28, 2024 11:01
[2024-10-28] MEDS: FLEET ENEMA(ADULT) 135 ML PR ONE (13:45)
[2024-10-28] MEDS: dilTIAZem 25 MG/5 ML VIAL IV ONE (15:32)
[2024-10-28] MEDS: dilTIAZem HCL 60 MG TAB GT SCH (19:34)
--- NOTE | 2024-10-28 19:38 | DVHPN2 ---
Progress Note - Dictate Date Seen: Oct 28, 2024 Has the PT tested + for MRSA If YES, has PT been informed?: No Medical Necessity Reason Pt with a Central, PICC or Fol: Yes The following are medically ne: Matamoros Catheter Reason for matamoros catheter: Strict I&O Subjective Patient seen and examined at bedside. Sedated, intubated on mechanical ventilator. Overnight events reviewed. vital signs Vital Sign Date Time Temp Pulse Resp B/P (MAP) Pulse Ox O2 Delivery O2 Flow Rate FiO2 10/28/24 18:45 99.7 118 18 151/67 (95) 94 211.5 10/28/24 18:23 40 10/28/24 18:00 Mechanical Ventilator+ Total Intake and Output 10/27/24 10/27/24 10/28/24 15:00 23:00 07:00 Intake Total 801.201 ml 477.792 ml 599.832 ml Output Total 1200 ml 1050 ml Balance 801.201 ml -722.208 ml -450.168 ml medications Current Medications Medications Dose Ordered Sig/Chencho Route Start Time Stop Time Status Last Admin Dose Admin Ondansetron HCl 4 mg Q4HP PRN IV 10/22/24 13:45 Docusate Sodium 100 mg BIDPRN PRN PO 10/22/24 13:45 Acetaminophen 650 mg Q6HP PRN PO 10/22/24 13:45 10/28/24 00:59 650 MG Ceftriaxone Sodium 50 ml @ 100 mls/hr DAILY@09 IV 10/23/24 09:00 10/28/24 10:01 100 MLS/HR Albuterol 2.5 mg Q4HR NEB 10/23/24 06:00 10/28/24 18:23 2.5 MG Ipratropium [place] 0.5 mg Q4HR NEB 10/23/24 06:00 10/28/24 18:23 0.5 MG Enoxaparin Sodium 40 mg DAILY SC 10/24/24 10:00 10/28/24 10:02 40 MG Rocuronium [place] 50 mg Q1HP PRN IV 10/23/24 12:45 10/23/24 13:34 50 MG Pantoprazole Sodium 40 mg DAILY IV 10/24/24 10:00 10/28/24 10:02 40 MG Budesonide 0.5 mg BID NEB 10/23/24 22:00 10/28/24 18:23 0.5 MG Propofol 100 ml @ 3.204 mls/ hr Q24H IV 10/24/24 11:00 10/28/24 15:28 9.612 MLS/HR Midazolam HCl 50 ml @ 1 mls/hr Q24H IV 10/24/24 11:00 10/28/24 15:28 3.5 MLS/HR Fentanyl Citrate 250 ml @ 2.5 mls/hr Q24H IV 10/24/24 11:00 10/28/24 17:18 12.5 MLS/HR Thiamine HCl 100 mg DAILY IV 10/26/24 10:00 10/28/24 10:02 100 MG Lactulose 30 ml BID GT 10/26/24 10:00 10/28/24 10:01 30 ML Hydralazine HCl 10 mg Q6HP PRN IV 10/27/24 03:30 10/28/24 16:09 10 MG Nicardipine/ Sodium Chloride 200 ml @ 50 mls/hr Q4H IV 10/27/24 10:30 10/28/24 17:31 100 MLS/HR Chlordiazepoxide HCl 25 mg Q6HR PO 10/27/24 18:00 10/28/24 13:45 25 MG Methylprednisolone Sodium Succinate 40 mg BID IV 10/28/24 22:00 Enteral Nutritional Formula 1,000 ml 50ML/HR GT 10/28/24 11:00 Diltiazem HCl 30 mg Q6HR GT 10/28/24 18:00 objective Gen.: Patient lying in bed in medical ICU. Sedated, intubated on mechanical ventilator. Head: Normocephalic, atraumatic. Eyes: PERRLA. Ears: Normal external anatomy. Throat: Endotracheal tube and orogastric tube in place. Neck: Supple, trachea midline. Chest: Transmitted breath sounds bilaterally. Decreased air entry bilaterally. No wheezing. Bibasilar crackles. Cardiovascular: Positive S1, positive S2. Regular rate and rhythm. Abdomen: Positive bowel sounds in all 4 quadrants. Soft, nontender, nondistended. : Matamoros in place. Normal external genitalia. Rectal: Deferred. Skin: Warm, dry. Intact. Extremities: 2+ radial pulses bilaterally. No lower extremity edema. Neuro: Sedated. laboratory and microbiology Laboratory Tests 10/28/24 03:45 Test 10/28/24 03:45 Range/Units Serum Glucose 130 H 74-106 mg/dL Assessment/Plan Impression: Asthma exacerbation Acute hypoxic respiratory failure On mechanical ventilator Systemic inflammatory response syndrome Pneumonia w/ Haemophilus influenzae Hx of alcohol abuse Hypokalemia Events: On mechanical ventilation s/p intubation AC mode with RR 20, VT 500, PEEP 7, FiO2 40% Sedated on Propofol/Versed. ABG reviewed, compensated Chest x-ray reviewed, demonstrates multifocal opacities. Devices in place. Nicardipine for BP control Continue bronchodilators/Pulmicort Continue steroids Continue antibiotics On Librium Monitor renal function Monitor electrolytes. Supplement as necessary. Supplement potassium Labs and imaging reviewed Plan: s/p intubation on mechanical ventilator continue vent support daily weaning Titrate FIO2 to keep O2 saturation above 90%. VAP bundle. Daily ABG and CXR while intubated Sedate for ventilator synchrony Pressors as necessary for hemodynamic support Titrate to keep mean arterial pressure greater than 65 mmHg. Blood pressure control Steroids Albuterol/Atrovent Antibiotics Nutrition Monitor renal function Monitor electrolytes. Supplement as necessary. Monitor ins and outs. GI and DVT prophylaxis Prognosis: Poor given patient's multiple co-morbidities. Condition: Critical Rest of plan per hospitalist and other consultants. A total of 35 minutes of critical care time was spent reviewing the patient record, examining the patient, making a diagnostic and therapeutic plan, discussing this plan with the medical personnel, following up on diagnostic studies and following the patient for clinical stability excluding any and all procedures. At least 50% of this time was spent in direct, [id number] contact. Thank you, MERRITT Mariano, for allowing me to participate in this patient's care. Further recommendations will depend on the patient's clinical course. Please do not hesitate to contact me if you have any questions or concerns. This medical document was created using an electronic medical record system with Xopik dictation system. Although these documentations are being carefully reviewed, there may still be some phonetic and typographical changes. The errors are purely typographical, due to imperfection on the software program, and do not reflect any compromise in the patient's medical care. Dietary Evaluation Review Comments: 1. Pt is on propofol, receiving fat energy 824kcal pt is on sucrose 170kcal from D5W 5% 1000ml out of MVI banan bag, recommend adding clinimix @41ml/hr for his protein needs. This protocol will support pt 1504 kcal, meeting his energy @ 129%, meeting his protein needs @33%. 2. 10/23 lab Mg 28H, consider remove MgSo4 from the MVI banana bag. Expected Outcomes/Goals: Inadeqaute protein support for intubation. Reassess needs when Pt has a more stablized medical condition and or his propofol infusion rate is changed. Plan discussed with: Other (ISHA Brown) Critical Care Time(min): 35 CYNTHIA KENT MD Oct 28, 2024 19:38
[2024-10-28] MEDS: methylPREDNISolone SOD SUCC 40 MG/ML VL IV SCH (21:47)
[2024-10-29] VITALS (97 sets, daily range): BP systolic 129–184; BP diastolic 57–99; PULSE 49–131; RESP 7–42; TEMP 97.9–101.3; O2SAT 88–100
[2024-10-29 04:07] LABS: Basophils # (auto) 0 10 ^3/uL (0-0.2); Basophils % (auto) 0.2 % (0.0-2.0); Eosinophils # (auto) 0 10 ^3/uL (0-0.8); Hematocrit 39.6 % (41.0-53.0); Hemoglobin 13.5 g/dL (13.5-17.5); Lymphocytes # (auto) 0.6 10 ^3/uL (0.4-5.4); Lymphocytes % (auto) 5.5 % (10.0-50.0); Mean Corpuscular Hemoglobin 30.7 pg (28.0-32.0); Mean Corpuscular Hgb Conc. 34.1 g/dL (32.0-36.0); Mean Corpuscular Volume 90.2 fL (80.0-100.0); Monocytes # (auto) 0.7 10 ^3/uL (0-1.3); Monocytes % (auto) 6.4 % (0.0-12.0); Neutrophils # (auto) 9.5 10 ^3/uL (1.6-8.6); Neutrophils % (auto) 87.9 % (37.0-80.0); Nucleated Red Blood Cells % 0.2 %; Platelet Count (auto) 170 10^3/uL (140-450); Red Blood Cells 4.39 10^6/uL (4.5-5.90); Red Cell Distribution Width 12.5 % (11.8-14.3); White Blood Cell 10.8 10^3/uL (4.4-10.8)
[2024-10-29 04:14] LABS: Anion Gap 10 (5-15); Carbon Dioxide 30 mmol/L (20-31); Potassium 3.7 mmol/L (3.5-5.1)
[2024-10-29 04:19] LABS: BUN/Creatinine Ratio 41.3 (10.0-20.0)
[2024-10-29 04:20] LABS: Magnesium 2.5 mg/dL (1.6-2.6)
[2024-10-29 04:24] LABS: Blood Urea Nitrogen 33 mg/dL (9-23); Calcium 8.3 mg/dL (8.7-10.4); Chloride 111 mmol/L (98-107); Glucose 166 mg/dL (74-106); Sodium 151 mmol/L (136-145)
--- NOTE | 2024-10-29 06:22 | DVH ---
EXAM: XR Chest, 1 View CLINICAL INDICATION: INTUBATED TECHNIQUE: Frontal view of the chest. COMPARISON: XY CHEST PORTABLE on DOS: 10/28/24, XY CHEST PORTABLE on DOS: 10/27/24, XY CHEST PORTABLE o n DOS: 10/26/24, XY CHEST PORTABLE on DOS: 10/25/24, XY CHEST PORTABLE on DOS: 10/24/24 FINDINGS: LUNGS AND PLEURAL SPACES: Pulmonary venous congestion. Left pleural effusion. No consolidation. No pneumothorax. HEART: Unremarkable. No cardiomegaly. MEDIASTINUM: Unremarkable. Normal mediastinal contour. BONES/JOINTS: Unremarkable. No acute fracture. TUBES, LINES AND DEVICES: Right internal jugular central venous catheter tip in the superior vena c deep. The endotracheal tube (ETT) is in satisfactory position. Enteric tube tip cannot be seen but i s below the diaphragm. OTHER FINDINGS: . . IMPRESSION: 1. Pulmonary venous congestion. 2. Left pleural effusion.
--- NOTE | 2024-10-29 09:11 | DVHPN2 ---
Subjective Patient chemically sedated Reviewed: Care Plan, H&P, Labs, Medications Changes from previous H/P or p: No Changes General: Per HPI Eyes: No Pain, No Vision change, No Conjunctivae inflammation, No Eyelid inflammation, No Other, No Redness ENT: No Ear pain, No Ear discharge, No Nose pain, No Nose discharge, No Nose congestion, No Mouth pain, No Mouth swelling, No Throat pain, No Throat swelling, No Other Cardiovascular: No Chest Pain, No Palpitations, No Orthopnea, No Paroxysmal Noc. Dyspnea, No Edema, No Lt Headedness, No Other Respiratory: Cough; No Dry; Shortness of breath, SOB with excertion, Wheezing; No Hemoptysis, No Pleuritic Pain, No Sputum, No Other Gastrointestinal: No Nausea, No Vomiting, No Abdominal Pain, No Diarrhea, No Constipation, No Melena, No Hematochezia, No Other Genitourinary: No Dysuria, No Frequency, No Incontinence, No Hematuria, No Retention, No Other Musculoskeletal: No other, No neck pain, No shoulder pain, No arm pain, No back pain, No hand pain, No leg pain, No foot pain Skin: No Rash, No Lesions, No Jaundice, No Bruising, No Other Objective Vitals Vital Signs Date Time Temp Pulse Resp B/P (MAP) Pulse Ox O2 Delivery O2 Flow Rate FiO2 10/29/24 08:39 150/85 10/29/24 07:59 104 16 92 35 10/29/24 06:45 97.9 208.2 10/29/24 06:00 Mechanical Ventilator+ Intake/Output Intake and Output 10/29/24 07:00 Intake Total 1874.491 ml Output Total 1500 ml Balance 374.491 ml Intake Oral 100 ml IV Total 1480.491 ml Tube Feeding 214 ml Other 80 ml Output Urine Total 1500 ml # Bowel Movements 1 General Appearance: moderate distress, Other (RN) HEENT: Atraumatic, PERRLA Lungs: Other (Bilateral wheezing. Peak pressure 40) Cardiovascular: Normal S1, Normal S2 Abdomen: Normal bowel sounds, Soft, No tenderness Genitourinary: No Apparent Abnormalities (Reeder catheter) Musculoskeletal: Other (Unable to assess) Neuro: Cranial nerves 3-12 NL, Other (Unable to assess) Skin: Dry, Intact Psych/Mental Status: Other (Unable to assess) Medications Current Medications Medications Dose Ordered Sig/Chencho Route Start Time Stop Time Status Last Admin Dose Admin Ondansetron HCl 4 mg Q4HP PRN IV 10/22/24 13:45 Docusate Sodium 100 mg BIDPRN PRN PO 10/22/24 13:45 Acetaminophen 650 mg Q6HP PRN PO 10/22/24 13:45 10/28/24 00:59 650 MG Ceftriaxone Sodium 50 ml @ 100 mls/hr DAILY@09 IV 10/23/24 09:00 10/28/24 10:01 100 MLS/HR Albuterol 2.5 mg Q4HR NEB 10/23/24 06:00 10/29/24 05:55 2.5 MG Ipratropium [place] 0.5 mg Q4HR NEB 10/23/24 06:00 10/29/24 05:55 0.5 MG Enoxaparin Sodium 40 mg DAILY SC 10/24/24 10:00 10/28/24 10:02 40 MG Rocuronium [place] 50 mg Q1HP PRN IV 10/23/24 12:45 10/23/24 13:34 50 MG Pantoprazole Sodium 40 mg DAILY IV 10/24/24 10:00 10/28/24 10:02 40 MG Budesonide 0.5 mg BID NEB 10/23/24 22:00 10/29/24 05:55 0.5 MG Propofol 100 ml @ 3.204 mls/ hr Q24H IV 10/24/24 11:00 10/29/24 05:28 28.836 MLS/HR Midazolam HCl 50 ml @ 1 mls/hr Q24H IV 10/24/24 11:00 10/28/24 15:28 3.5 MLS/HR Fentanyl Citrate 250 ml @ 2.5 mls/hr Q24H IV 10/24/24 11:00 10/28/24 17:18 12.5 MLS/HR Thiamine HCl 100 mg DAILY IV 10/26/24 10:00 10/28/24 10:02 100 MG Lactulose 30 ml BID GT 10/26/24 10:00 10/28/24 21:47 30 ML Hydralazine HCl 10 mg Q6HP PRN IV 10/27/24 03:30 10/29/24 00:32 10 MG Nicardipine/ Sodium Chloride 200 ml @ 50 mls/hr Q4H IV 10/27/24 10:30 10/29/24 07:30 50 MLS/HR Chlordiazepoxide HCl 25 mg Q6HR PO 10/27/24 18:00 10/29/24 05:45 25 MG Methylprednisolone Sodium Succinate 40 mg BID IV 10/28/24 22:00 10/28/24 21:47 40 MG Enteral Nutritional Formula 1,000 ml 50ML/HR GT 10/28/24 11:00 Diltiazem HCl 30 mg Q6HR GT 10/28/24 18:00 10/28/24 19:34 30 MG Dextrose/Sodium Chloride 1,000 ml @ 75 mls/hr [id number] IV 10/29/24 07:45 UNV Laboratory Results Laboratory Tests 10/29/24 03:20 Chemistry Test 10/29/24 03:20 Calcium Level 8.3 mg/dL (8.7-10.4) L Magnesium Level 2.5 mg/dL (1.6-2.6) Blood Gas Results Test 10/29/24 06:47 Arterial Blood pH 7.448 (7.350-7.450) FiO2 % 35.0 Microbiology Microbiology Date/Time Source Procedure Growth Status 10/24/24 09:31 Nose MRSA Screen - Final Complete 10/22/24 11:02 Blood Blood Culture - Final NO GROWTH AFTER 5 DAYS OF INCUBATION. Complete 10/22/24 10:43 Sputum Gram Stain - Final Complete 10/22/24 10:43 Respiratory Culture - Final Haemophilus influenzae Complete Labs and/or images reviewed: Labs reviewed by me, Image(s) reviewed by me Assessment/Plan Assessment/Plan Impression: -acute asthma exacerbation -acute hypoxic and hypercarbic respiratory failure -sirs -history of alcoholism -community-acquired pneumonia with Haemophilus influenzae -acute delirium -constipation Plan: Events: Patient off sedation. Was placed on spontaneous breathing trial this a.m.. Continues to have some encephalopathy/delirium. Tachycardia improved with initiation of Cardizem via G-tube. Blood pressure also control with nicardipine drip. Patient moved bowels yesterday. -continue Rocephin -pulmonology consultation: Spontaneous breathing trial and ventilator settings per their discretion -continue current sedation, recommend weaning sedation -continue tube feeding -continue Solu-Medrol and Pulmicort -DuoNebs q.4 hours -repeat labs, chest x-ray, ABG in a.m. Critical care time spent with patient discussing and formulating plan of care: 40 minutes. This does not include time spent performing procedures. This medical document was created using an electronic medical record system with Jobber dictation system. Although this document has been carefully reviewed, there may still be some phonetic and typographical errors. These areas are purely typographical due to imperfections of the software programs, and do not reflect any compromise in the patient's medical care. Plan discussed with: Patient, Other (RN) My Orders Orders - RAMA BENOIT PRESS BU[employer]ER Procedure Category Date Status Time Methylprednisolone PHA 10/28/24 In Process Sod Succ (Solu Medrol 22:00 Nutritional PHA 10/28/24 In Process Supplements (Glucerna 11:00 Cpap/Sed Vacation Med ORDERS 10/28/24 Transmitted Weaning 13:54 Diltiazem Immediate PHA 10/28/24 In Process Releas Tab (Cardizem 18:00 Chest Xray 1 View XY 10/29/24 Resulted 04:00 D5w/Sod Chl 0.45% PHA 10/29/24 Logged (D5w 1/2ns) 07:45 Cpap Trial For Am ORDERS 10/29/24 Transmitted 08:00 Date of Service: Oct 29, 2024 Billing Provider: RAMA BENOIT NP Common Visit Codes: [id number] CARE 30-74 MIN RAMA BENOIT NP Oct 29, 2024 09:11
[2024-10-29] MEDS: D5W/SOD CHL 0.45% 1,000 ML IV SCH (09:14)
[2024-10-29] MEDS: FUROSEMIDE 20 MG/2 ML VIAL ONE (09:48)
[2024-10-29 10:21] LABS: Base Excess 3.2 mmol/L (-2.0-3.0)
[2024-10-29] MEDS: FUROSEMIDE 20 MG/2 ML VIAL IV ONE (10:21)
[2024-10-29] MEDS ORDERED: cloNIDine HCL 0.1 MG TAB PO PRN (17:30)
[2024-10-29] MEDS: NIFEdipine ER 30 MG TAB PO ONE (17:52)
[2024-10-29] MEDS: DOCUSATE SOD 100 MG CAP PO PRN (23:52)
[2024-10-29] MEDS: ONDANSETRON HCL 4 MG/2 ML VIAL IV PRN (23:52)
[2024-10-30] VITALS (58 sets, daily range): BP systolic 132–162; BP diastolic 79–108; PULSE 59–104; RESP 8–28; TEMP 97.9–100.9; O2SAT 88–100
[2024-10-30] MEDS: FLEET ENEMA(ADULT) 135 ML PR ONE (03:12)
[2024-10-30 03:41] LABS: Anion Gap 10 (5-15); Carbon Dioxide 28 mmol/L (20-31); Chloride 105 mmol/L (98-107); Sodium 143 mmol/L (136-145)
[2024-10-30 03:45] LABS: Hematocrit 43.4 % (41.0-53.0); Mean Corpuscular Hemoglobin 30.6 pg (28.0-32.0); Mean Corpuscular Hgb Conc. 34.6 g/dL (32.0-36.0); Mean Corpuscular Volume 88.4 fL (80.0-100.0); Platelet Count (auto) 203 10^3/uL (140-450); Red Blood Cells 4.91 10^6/uL (4.5-5.90); Red Cell Distribution Width 12.8 % (11.8-14.3); White Blood Cell 16.7 10^3/uL (4.4-10.8)
[2024-10-30 03:48] LABS: BUN/Creatinine Ratio 33.8 (10.0-20.0)
[2024-10-30 04:09] LABS: Basophils % (manual) 0 (0.0-2.0); Blast Cells 0; Eosinophils % (manual) 0 (0-7); Metamyelocytes % 0; Myelocytes % 0; Promyelocytes % 0; Reactive Lymphocytes 0
[2024-10-30 04:11] LABS: Blood Urea Nitrogen 26 mg/dL (9-23); Calcium 8.5 mg/dL (8.7-10.4); Glucose 139 mg/dL (74-106); Potassium 3.3 mmol/L (3.5-5.1)
[2024-10-30 05:31] LABS: Band Neutrophils % (manual) 2; Lymphocytes % (manual) 9 (10.0-50.0); Monocytes % (manual) 2 (0-12)
[2024-10-30 05:32] LABS: Platelet Estimate Adequate
[2024-10-30] MEDS: POTASSIUM CHL 20MEQ/100ML 100 ML IV ONE (05:35)
[2024-10-30] MEDS: NIFEdipine ER 30 MG TAB PO SCH (09:02)
--- NOTE | 2024-10-30 09:08 | DVHPN2 ---
Subjective Patient chemically sedated Reviewed: Care Plan, H&P, Labs, Medications Changes from previous H/P or p: No Changes General: Per HPI Eyes: No Pain, No Vision change, No Conjunctivae inflammation, No Eyelid inflammation, No Other, No Redness ENT: No Ear pain, No Ear discharge, No Nose pain, No Nose discharge, No Nose congestion, No Mouth pain, No Mouth swelling, No Throat pain, No Throat swelling, No Other Cardiovascular: No Chest Pain, No Palpitations, No Orthopnea, No Paroxysmal Noc. Dyspnea, No Edema, No Lt Headedness, No Other Respiratory: Cough; No Dry; Shortness of breath, SOB with excertion, Wheezing; No Hemoptysis, No Pleuritic Pain, No Sputum, No Other Gastrointestinal: No Nausea, No Vomiting, No Abdominal Pain, No Diarrhea, No Constipation, No Melena, No Hematochezia, No Other Genitourinary: No Dysuria, No Frequency, No Incontinence, No Hematuria, No Retention, No Other Musculoskeletal: No other, No neck pain, No shoulder pain, No arm pain, No back pain, No hand pain, No leg pain, No foot pain Skin: No Rash, No Lesions, No Jaundice, No Bruising, No Other Objective Vitals Vital Signs Date Time Temp Pulse Resp B/P (MAP) Pulse Ox O2 Delivery O2 Flow Rate FiO2 10/30/24 09:02 139/91 10/30/24 08:00 85 15 93 Nasal Cannula* 5 40 10/30/24 06:00 100.8 100.8 Intake/Output Intake and Output 10/30/24 07:00 Intake Total 3450 ml Output Total 3900 ml Balance -450 ml Intake Oral 500 ml IV Total 2950 ml Output Urine Total 3600 ml Stool Total 150 ml Emesis 150 ml # Bowel Movements 3 General Appearance: moderate distress, Other (RN) HEENT: Atraumatic, PERRLA Lungs: Other (Bilateral wheezing. Peak pressure 40) Cardiovascular: Normal S1, Normal S2 Abdomen: Normal bowel sounds, Soft, No tenderness Genitourinary: No Apparent Abnormalities (Reeder catheter) Musculoskeletal: Other (Unable to assess) Neuro: Cranial nerves 3-12 NL, Other (Unable to assess) Skin: Dry, Intact Psych/Mental Status: Other (Unable to assess) Medications Current Medications Medications Dose Ordered Sig/Chencho Route Start Time Stop Time Status Last Admin Dose Admin Ondansetron HCl 4 mg Q4HP PRN IV 10/22/24 13:45 10/30/24 04:41 4 MG Docusate Sodium 100 mg BIDPRN PRN PO 10/22/24 13:45 10/29/24 23:52 100 MG Acetaminophen 650 mg Q6HP PRN PO 10/22/24 13:45 10/30/24 03:33 650 MG Ceftriaxone Sodium 50 ml @ 100 mls/hr DAILY@09 IV 10/23/24 09:00 10/30/24 09:00 100 MLS/HR Albuterol 2.5 mg Q4HR [facility] 10/23/24 06:00 10/30/24 06:24 2.5 MG Ipratropium [place] 0.5 mg Q4HR [facility] 10/23/24 06:00 10/30/24 06:24 0.5 MG Enoxaparin Sodium 40 mg DAILY SC 10/24/24 10:00 10/30/24 09:02 40 MG Pantoprazole Sodium 40 mg DAILY IV 10/24/24 10:00 10/30/24 09:00 40 MG Budesonide 0.5 mg BID [facility] 10/23/24 22:00 10/30/24 06:24 0.5 MG Thiamine HCl 100 mg DAILY IV 10/26/24 10:00 10/30/24 09:01 100 MG Hydralazine HCl 10 mg Q6HP PRN IV 10/27/24 03:30 10/29/24 18:20 10 MG Chlordiazepoxide HCl 25 mg Q6HR PO 10/27/24 18:00 10/30/24 05:35 25 MG Methylprednisolone Sodium Succinate 40 mg BID IV 10/28/24 22:00 10/30/24 09:01 40 MG Nifedipine 60 mg DAILY PO 10/30/24 10:00 10/30/24 09:02 60 MG Clonidine HCl 0.1 mg Q4HP PRN PO 10/29/24 17:30 Potassium Chloride 40 meq/ Sodium Chloride 1,020 ml @ 100 mls/hr [id number] IV 10/30/24 09:00 10/30/24 19:11 UNV Metoclopramide HCl 10 mg Q8HR IV 10/30/24 14:00 10/31/24 06:01 UNV Laboratory Results Laboratory Tests 10/30/24 03:11 Chemistry Test 10/30/24 03:11 Calcium Level 8.5 mg/dL (8.7-10.4) L Blood Gas Results Test 10/29/24 10:15 Arterial Blood pH 7.495 (7.350-7.450) FiO2 % 35.0 Microbiology Microbiology Date/Time Source Procedure Growth Status 10/24/24 09:31 Nose MRSA Screen - Final Complete 10/22/24 11:02 Blood Blood Culture - Final NO GROWTH AFTER 5 DAYS OF INCUBATION. Complete 10/22/24 10:43 Sputum Gram Stain - Final Complete 10/22/24 10:43 Respiratory Culture - Final Haemophilus influenzae Complete Labs and/or images reviewed: Labs reviewed by me, Image(s) reviewed by me Assessment/Plan Assessment/Plan Impression: -acute asthma exacerbation -acute hypoxic and hypercarbic respiratory failure -sirs -history of alcoholism -community-acquired pneumonia with Haemophilus influenzae -acute delirium -constipation Plan: Events: Patient extubated. Hypertension controlled with p.o. meds. Tolerating oral intake. Patient reporting subjective abdominal distention. Noted nausea and vomiting. -physical therapy -continue Rocephin -pulmonology consultation: Spontaneous breathing trial and ventilator settings per their discretion -continue current sedation, recommend weaning sedation -continue tube feeding -continue Solu-Medrol and Pulmicort -DuoNebs q.4 hours -repeat labs, chest x-ray, ABG in a.m. Critical care time spent with patient discussing and formulating plan of care: 40 minutes. This does not include time spent performing procedures. This medical document was created using an electronic medical record system with [employer] dictation system. Although this document has been carefully reviewed, there may still be some phonetic and typographical errors. These areas are purely typographical due to imperfections of the software programs, and do not reflect any compromise in the patient's medical care. Plan discussed with: Patient, Other (RN) My Orders Orders - RAMA BENOIT NP Procedure Category Date Status Time Abg W/ Co-Ox RT 10/29/24 Logged 10:00 * Wound Consult CONS 10/29/24 Transmitted 12:01 * Dietary Consult CONS 10/29/24 Transmitted 12:01 Nifedipine Er PHA 10/30/24 In Process (Procardia Xl 10:00 Clonidine Hcl Tablet PHA 10/29/24 In Process (Catapres Tablet) 17:30 Mechanical Soft Diet DIET 10/29/24 Transmitted [facility] 10/29/24 In Process Clarification: 17:36 Sod Chl 0.45% PHA 10/30/24 Logged (Sodi... W/Potassium 09:00 Metoclopramide PHA 10/30/24 Logged Injection (Reglan 14:00 Pt Request For Service PT 10/30/24 Logged 09:03 Basic Metabolic Panel LAB 10/31/24 Verified 04:00 Date of Service: Oct 30, 2024 Billing Provider: RAMA BENOIT NP Common Visit Codes: [id number] CARE 30-74 MIN RAMA BENOIT NP Oct 30, 2024 09:08
--- NOTE | 2024-10-30 10:40 | DVH ---
Date: 10/30/2024 09:21 AM Examination: XY KUB ABDOMEN SINGLE VIEW History: abdominal distention Comparison: None TECHNIQUE: Frontal views of the abdomen was obtained. FINDINGS: Gaseous distended loops of colon and small bowel are visualized. The lung bases are collimated from field of view. No acute osseous abnormality identified. IMPRESSION: Gaseous distended loops of small bowel and colon are visualized for which small bowel obstruction katlin dre ileus can not be excluded. If clinically indicated, consider further evaluation with CT.
[2024-10-30] MEDS: POTASSIUM CHLORIDE 40 MEQ in SOD CHL 0.45% 1,000 ML IV SCH (10:59)
[2024-10-30] MEDS: GASTROGRAFIN 30 ML SOL ONE (14:17)
[2024-10-30] MEDS: METOCLOPRAMIDE HCL 5MG/ml INJ 2ml VIAL IV SCH (14:22)
--- NOTE | 2024-10-30 19:51 | DVH ---
CLINICAL HISTORY: Rule out obstruction TECHNIQUE: CT of the abdomen and pelvis was performed without intravenous contrast. 30 mL oral Gastro grafin ingested. This exam was performed according to our departmental dose optimization program. Up- to-date CT equipment and radiation dose reduction techniques are utilized as appropriate. CTDI: 15.03 DLP: 976.66 WID: COMPARISON: None FINDINGS: Lower Thorax: There are dependent consolidations of the bilateral lower lobes with air bronchograms, greater on the left. Trace bilateral pleural effusions. Upper limits of normal-sized heart with trace pericardial fluid. Tip of a central venous catheter in the cavoatrial junction. Liver and Biliary system: Unremarkable. Spleen: Unremarkable. Adrenal Glands and Kidneys: Unremarkable. Pancreas and Retroperitoneum: Unremarkable. Aorta and Major Vessels: Unremarkable. Bowel, Mesentery and Peritoneal space: Fluid containing large bowel, Normal caliber ; mild gas disten tion of the large bowel. Normal appendix. There is contrast within the stomach, duodenum and proximal small bowel. Diffuse fluid distension of the small bowel without a discrete transition point. There is mild ascites. There is no pneumatosis intestinalis or free air. No loculated fluid collection to s uggest abscess. Pelvis: Urinary bladder is decompressed about a Reeder catheter. Otherwise unremarkable. Abdominal wall and Osseous Structures: Tiny sclerotic foci in the proximal femurs and pelvis, likely bone islands. There is mild body wall edema. Small fat containing enyx-mdqqhtg-iady-right inguinal he rnias and tiny fat containing umbilical hernia. Tiny locules of gas in the anterior right abdominal w all likely related to injection site. IMPRESSION: 1. Fluid Containing small and large bowel. Diffuse fluid distention of small bowel without a discret e transition point. Findings could be due to ileus related to underlying enterocolitis. A partial sm all-bowel obstruction is a less likely additional consideration. 2. Dependent consolidations of the bilateral lower lobes with air bronchograms, greater on left, like ly atelectasis, though pneumonia (which can be on the basis of aspiration) is a consideration. 3. Mild body wall edema, trace bilateral pleural effusions, and mild ascites.
--- NOTE | 2024-10-30 20:14 | DVHPN2 ---
Progress Note - Dictate Date Seen: Oct 29, 2024 Has the PT tested + for MRSA If YES, has PT been informed?: No Medical Necessity Reason Pt with a Central, PICC or Fol: Yes The following are medically ne: Matamoros Catheter Reason for matamoros catheter: Strict I&O Subjective Patient seen and examined at bedside. Intubated on mechanical ventilator. Overnight events reviewed. vital signs Vital Sign Date Time Temp Pulse Resp B/P (MAP) Pulse Ox O2 Delivery O2 Flow Rate FiO2 10/30/24 18:30 82 19 155/107 (123) 97 10/30/24 18:00 Nasal Cannula* 6 44 10/30/24 17:00 99.4 99.4 Total Intake and Output 10/29/24 10/29/24 10/30/24 15:00 23:00 07:00 Intake Total 1500 ml 1100 ml 925 ml Output Total 2300 ml 1600 ml Balance 1500 ml -1200 ml -675 ml medications Current Medications Medications Dose Ordered Sig/Chencho Route Start Time Stop Time Status Last Admin Dose Admin Ondansetron HCl 4 mg Q4HP PRN IV 10/22/24 13:45 10/30/24 04:41 4 MG Docusate Sodium 100 mg BIDPRN PRN PO 10/22/24 13:45 10/29/24 23:52 100 MG Acetaminophen 650 mg Q6HP PRN PO 10/22/24 13:45 10/30/24 03:33 650 MG Ceftriaxone Sodium 50 ml @ 100 mls/hr DAILY@09 IV 10/23/24 09:00 10/30/24 09:00 100 MLS/HR Albuterol 2.5 mg Q4HR NEB 10/23/24 06:00 10/30/24 17:42 2.5 MG Ipratropium Comfort 0.5 mg Q4HR NEB 10/23/24 06:00 10/30/24 17:42 0.5 MG Enoxaparin Sodium 40 mg DAILY SC 10/24/24 10:00 10/30/24 09:02 40 MG Pantoprazole Sodium 40 mg DAILY IV 10/24/24 10:00 10/30/24 09:00 40 MG Budesonide 0.5 mg BID NEB 10/23/24 22:00 10/30/24 06:24 0.5 MG Thiamine HCl 100 mg DAILY IV 10/26/24 10:00 10/30/24 09:01 100 MG Hydralazine HCl 10 mg Q6HP PRN IV 10/27/24 03:30 10/29/24 18:20 10 MG Chlordiazepoxide HCl 25 mg Q6HR PO 10/27/24 18:00 10/30/24 18:21 25 MG Methylprednisolone Sodium Succinate 40 mg BID IV 10/28/24 22:00 10/30/24 09:01 40 MG Nifedipine 60 mg DAILY PO 10/30/24 10:00 10/30/24 09:02 60 MG Clonidine HCl 0.1 mg Q4HP PRN PO 10/29/24 17:30 Metoclopramide HCl 10 mg Q8HR IV 10/30/24 14:00 10/31/24 06:01 10/30/24 14:22 10 MG objective Gen.: Patient lying in bed in medical ICU. Intubated on mechanical ventilator. Head: Normocephalic, atraumatic. Eyes: PERRLA. Ears: Normal external anatomy. Throat: Endotracheal tube and orogastric tube in place. Neck: Supple, trachea midline. Chest: Transmitted breath sounds bilaterally. Decreased air entry bilaterally. No wheezing. Bibasilar crackles. Cardiovascular: Positive S1, positive S2. Regular rate and rhythm. Abdomen: Positive bowel sounds in all 4 quadrants. Soft, nontender, nondistended. : Matamoros in place. Normal external genitalia. Rectal: Deferred. Skin: Warm, dry. Intact. Extremities: 2+ radial pulses bilaterally. No lower extremity edema. Neuro: Off sedation. Altered. laboratory and microbiology Laboratory Tests 10/30/24 03:11 Test 10/30/24 03:11 Range/Units Serum Glucose 139 H 74-106 mg/dL Assessment/Plan Impression: Asthma exacerbation Acute hypoxic respiratory failure On mechanical ventilator Systemic inflammatory response syndrome Pneumonia w/ Haemophilus influenzae Hx of alcohol abuse Hypokalemia Events: Remains on mechanical ventilation s/p intubation AC mode with RR 20, VT 500, PEEP 7, FiO2 35% Patient is off sedation. CPAP trial with PS 8, PEEP 5 ABG on CPAP notable for alkalemia Continues to have some encephalopathy/delirium. Tachycardia improved with initiation of Cardizem via G-tube. Blood pressure controlled with nicardipine drip. Continue bronchodilators/Pulmicort Continue steroids Continue antibiotics On Librium Tube feeds for nutritional support Monitor renal function Monitor electrolytes. Supplement as necessary. Supplement potassium Labs and imaging reviewed Plan: s/p intubation on mechanical ventilator continue vent support daily weaning Titrate FIO2 to keep O2 saturation above 90%. VAP bundle. Daily ABG and CXR while intubated Off sedation Pressors as necessary for hemodynamic support Titrate to keep mean arterial pressure greater than 65 mmHg. Blood pressure control Steroids Albuterol/Atrovent Antibiotics Nutrition Monitor renal function Monitor electrolytes. Supplement as necessary. Monitor ins and outs. GI and DVT prophylaxis Prognosis: Poor given patient's multiple co-morbidities. Condition: Critical Rest of plan per hospitalist and other consultants. A total of 35 minutes of critical care time was spent reviewing the patient record, examining the patient, making a diagnostic and therapeutic plan, discussing this plan with the medical personnel, following up on diagnostic studies and following the patient for clinical stability excluding any and all procedures. At least 50% of this time was spent in direct, [id number] contact. Thank you, MERRITT Mariano, for allowing me to participate in this patient's care. Further recommendations will depend on the patient's clinical course. Please do not hesitate to contact me if you have any questions or concerns. This medical document was created using an electronic medical record system with [employer] computerized dictation system. Although these documentations are being carefully reviewed, there may still be some phonetic and typographical changes. The errors are purely typographical, due to imperfection on the software program, and do not reflect any compromise in the patient's medical care. Dietary Evaluation Review Comments: 1. Pt is on propofol, receiving fat energy 824kcal pt is on sucrose 170kcal from D5W 5% 1000ml out of MVI banan bag, recommend adding clinimix @41ml/hr for his protein needs. This protocol will support pt 1504 kcal, meeting his energy @ 129%, meeting his protein needs @33%. 2. 10/23 lab Mg 28H, consider remove MgSo4 from the MVI banana bag. Expected Outcomes/Goals: Inadeqaute protein support for intubation. Reassess needs when Pt has a more stablized medical condition and or his propofol infusion rate is changed. Plan discussed with: Other (RN) CYNTHIA KENT MD Oct 30, 2024 20:14
[2024-10-30] MEDS: TEMAZEPAM 15 MG CAP PO ONE (20:15)
--- NOTE | 2024-10-30 23:56 | DVHPN2 ---
Progress Note - Dictate Date Seen: Oct 30, 2024 Has the PT tested + for MRSA If YES, has PT been informed?: No Medical Necessity Reason Pt with a Central, PICC or Fol: Yes The following are medically ne: Matamoros Catheter Reason for matamoros catheter: Strict I&O Subjective Patient seen and examined at bedside. S/p extubation, on supplemental oxygen Overnight events reviewed. vital signs Vital Sign Date Time Temp Pulse Resp B/P (MAP) Pulse Ox O2 Delivery O2 Flow Rate FiO2 10/30/24 22:00 59 16 100 10/30/24 21:30 148/103 (118) 10/30/24 20:00 97.9 97.9 10/30/24 20:00 Nasal Cannula* 6 44 Total Intake and Output 10/29/24 10/29/24 10/30/24 15:00 23:00 07:00 Intake Total 1500 ml 1100 ml 925 ml Output Total 2300 ml 1600 ml Balance 1500 ml -1200 ml -675 ml medications Current Medications Medications Dose Ordered Sig/Chencho Route Start Time Stop Time Status Last Admin Dose Admin Ondansetron HCl 4 mg Q4HP PRN IV 10/22/24 13:45 10/30/24 23:09 4 MG Docusate Sodium 100 mg BIDPRN PRN PO 10/22/24 13:45 10/29/24 23:52 100 MG Acetaminophen 650 mg Q6HP PRN PO 10/22/24 13:45 10/30/24 03:33 650 MG Ceftriaxone Sodium 50 ml @ 100 mls/hr DAILY@09 IV 10/23/24 09:00 10/30/24 09:00 100 MLS/HR Albuterol 2.5 mg Q4HR NEB 10/23/24 06:00 10/30/24 21:48 2.5 MG Ipratropium [place] 0.5 mg Q4HR NEB 10/23/24 06:00 10/30/24 21:48 0.5 MG Enoxaparin Sodium 40 mg DAILY SC 10/24/24 10:00 10/30/24 09:02 40 MG Pantoprazole Sodium 40 mg DAILY IV 10/24/24 10:00 10/30/24 09:00 40 MG Budesonide 0.5 mg BID NEB 10/23/24 22:00 10/30/24 21:48 0.5 MG Thiamine HCl 100 mg DAILY IV 10/26/24 10:00 10/30/24 09:01 100 MG Hydralazine HCl 10 mg Q6HP PRN IV 10/27/24 03:30 10/29/24 18:20 10 MG Chlordiazepoxide HCl 25 mg Q6HR PO 10/27/24 18:00 10/30/24 23:00 25 MG Methylprednisolone Sodium Succinate 40 mg BID IV 10/28/24 22:00 10/30/24 23:00 40 MG Nifedipine 60 mg DAILY PO 10/30/24 10:00 10/30/24 09:02 60 MG Clonidine HCl 0.1 mg Q4HP PRN PO 10/29/24 17:30 Metoclopramide HCl 10 mg Q8HR IV 10/30/24 14:00 10/31/24 06:01 10/30/24 23:00 10 MG objective Gen.: Patient lying in bed in no apparent distress. On supplemental oxygen. Head: Normocephalic, atraumatic. Eyes: EOMI/PERRLA. Ears: Normal hearing. Normal anatomy. Neck/trachea: Trachea midline, supple. Nose: Normal external anatomy. Mouth: Moist mucous membranes. Chest: Decreased air entry bilaterally. No wheezing or rhonchi. Cardiovascular: Positive S1, positive S2. Regular rate and rhythm. Abdomen: Positive bowel sounds in all 4 quadrants. Soft, non-tender, non- distended. : Deferred. Rectal: Deferred. Skin: Warm, dry. Intact. Extremities: 2+ radial pulses bilaterally. No lower extremity edema. Neuro: Awake, alert, oriented x4. No gross motor or sensory deficits. Cranial nerves II through XII intact. Gait not assessed. laboratory and microbiology Laboratory Tests 10/30/24 03:11 Test 10/30/24 03:11 Range/Units Serum Glucose 139 H 74-106 mg/dL Assessment/Plan Impression: Asthma exacerbation Acute hypoxic respiratory failure Mechanical ventilation, s/p extubation Systemic inflammatory response syndrome Pneumonia w/ Haemophilus influenzae Hx of alcohol abuse Hypokalemia Events: Patient tolerated CPAP yesterday and was extubated uneventfully Currently on 5 LPM NC Taper O2 as tolerated No distress. Patient is AAO x4. Abdominal distension - obtain KUB for further evaluation Positive flatus Antiemetics for vomiting. Continue bronchodilators/Pulmicort Continue steroids Continue antibiotics On Librium Monitor renal function Monitor electrolytes. Supplement as necessary. Supplement potassium Physical therapy. Labs and imaging reviewed Plan: S/p extubation on 10/29/24 On supplemental oxygen Titrate to keep O2 sats above 92%. Pressors as necessary for hemodynamic support Titrate to keep mean arterial pressure greater than 65 mmHg. Blood pressure control Steroids Albuterol/Atrovent Antibiotics Nutrition Monitor renal function Monitor electrolytes. Supplement as necessary. Monitor ins and outs. GI and DVT prophylaxis Prognosis: Poor given patient's multiple co-morbidities. Condition: Critical Rest of plan per hospitalist and other consultants. A total of 35 minutes of critical care time was spent reviewing the patient record, examining the patient, making a diagnostic and therapeutic plan, discussing this plan with the medical personnel, following up on diagnostic studies and following the patient for clinical stability excluding any and all procedures. At least 50% of this time was spent in direct, [id number] contact. Thank you, MERRITT Mariano, for allowing me to participate in this patient's care. Further recommendations will depend on the patient's clinical course. Please do not hesitate to contact me if you have any questions or concerns. This medical document was created using an electronic medical record system with [employer] dictation system. Although these documentations are being carefully reviewed, there may still be some phonetic and typographical changes. The errors are purely typographical, due to imperfection on the software program, and do not reflect any compromise in the patient's medical care. Dietary Evaluation Review Comments: 1. Pt is on propofol, receiving fat energy 824kcal pt is on sucrose 170kcal from D5W 5% 1000ml out of MVI banan bag, recommend adding clinimix @41ml/hr for his protein needs. This protocol will support pt 1504 kcal, meeting his energy @ 129%, meeting his protein needs @33%. 2. 10/23 lab Mg 28H, consider remove MgSo4 from the MVI banana bag. Expected Outcomes/Goals: Inadeqaute protein support for intubation. Reassess needs when Pt has a more stablized medical condition and or his propofol infusion rate is changed. Plan discussed with: Other (ISHA Riojas) Critical Care Time(min): 35 CYNTHIA KENT MD Oct 30, 2024 23:56
[2024-10-31] VITALS (65 sets, daily range): BP systolic 114–148; BP diastolic 73–94; PULSE 51–97; RESP 11–27; TEMP 98.2–100; O2SAT 92–100
[2024-10-31 03:55] LABS: Basophils # (auto) 0 10 ^3/uL (0-0.2); Basophils % (auto) 0.2 % (0.0-2.0); Eosinophils # (auto) 0 10 ^3/uL (0-0.8); Eosinophils % (auto) 0.1 % (0.0-7.0); Hematocrit 45.6 % (41.0-53.0); Hemoglobin 15.5 g/dL (13.5-17.5); Lymphocytes # (auto) 1.1 10 ^3/uL (0.4-5.4); Lymphocytes % (auto) 6.3 % (10.0-50.0); Mean Corpuscular Hemoglobin 30.4 pg (28.0-32.0); Mean Corpuscular Hgb Conc. 34.1 g/dL (32.0-36.0); Mean Corpuscular Volume 89.3 fL (80.0-100.0); Monocytes # (auto) 0.9 10 ^3/uL (0-1.3); Monocytes % (auto) 5.4 % (0.0-12.0); Nucleated Red Blood Cells % 0.1 %; Platelet Count (auto) 193 10^3/uL (140-450); Red Blood Cells 5.11 10^6/uL (4.5-5.90); Red Cell Distribution Width 12.9 % (11.8-14.3); White Blood Cell 17.1 10^3/uL (4.4-10.8)
[2024-10-31 04:20] LABS: Chloride 104 mmol/L (98-107); Potassium 4.1 mmol/L (3.5-5.1); Sodium 141 mmol/L (136-145)
[2024-10-31 04:21] LABS: Anion Gap 9 (5-15); Carbon Dioxide 28 mmol/L (20-31)
[2024-10-31 04:22] LABS: Calcium 8.4 mg/dL (8.7-10.4)
[2024-10-31 04:26] LABS: BUN/Creatinine Ratio 37.7 (10.0-20.0)
[2024-10-31 04:42] LABS: Blood Urea Nitrogen 29 mg/dL (9-23); Glucose 141 mg/dL (74-106)
--- NOTE | 2024-10-31 09:27 | DVHPN2 ---
Subjective Patient denies any symptoms. Reports of vomiting yesterday evening. Reviewed: Care Plan, H&P, Labs, Medications Changes from previous H/P or p: No Changes General: Per HPI Eyes: No Pain, No Vision change, No Conjunctivae inflammation, No Eyelid inflammation, No Other, No Redness ENT: No Ear pain, No Ear discharge, No Nose pain, No Nose discharge, No Nose congestion, No Mouth pain, No Mouth swelling, No Throat pain, No Throat swelling, No Other Cardiovascular: No Chest Pain, No Palpitations, No Orthopnea, No Paroxysmal Noc. Dyspnea, No Edema, No Lt Headedness, No Other Respiratory: Cough; No Dry; Shortness of breath, SOB with excertion, Wheezing; No Hemoptysis, No Pleuritic Pain, No Sputum, No Other Gastrointestinal: No Nausea, No Vomiting, No Abdominal Pain, No Diarrhea, No Constipation, No Melena, No Hematochezia, No Other Genitourinary: No Dysuria, No Frequency, No Incontinence, No Hematuria, No Retention, No Other Musculoskeletal: No other, No neck pain, No shoulder pain, No arm pain, No back pain, No hand pain, No leg pain, No foot pain Skin: No Rash, No Lesions, No Jaundice, No Bruising, No Other Objective Vitals Vital Signs Date Time Temp Pulse Resp B/P (MAP) Pulse Ox O2 Delivery O2 Flow Rate FiO2 10/31/24 08:00 51 10/31/24 08:00 20 96 Nasal Cannula* 5 40 10/31/24 06:30 98.2 132/86 (101) 98.2 Intake/Output Intake and Output 10/31/24 07:00 Intake Total 2015 ml Output Total 1500 ml Balance 515 ml Intake Oral 1090 ml IV Total 925 ml Output Urine Total 1500 ml General Appearance: Alert, Oriented X3, mild distress, Other (RN) HEENT: Atraumatic, PERRLA Lungs: Other (Bilateral wheezing. Peak pressure 40) Cardiovascular: Normal S1, Normal S2 Abdomen: Other (Hypoactive bowel sounds. Distended abdomen.) Genitourinary: No Apparent Abnormalities (Reeder catheter) Musculoskeletal: Other (Unable to assess) Neuro: Cranial nerves 3-12 NL, Other (Unable to assess) Skin: Dry, Intact Psych/Mental Status: Other (Unable to assess) Medications Current Medications Medications Dose Ordered Sig/Chencho Route Start Time Stop Time Status Last Admin Dose Admin Ondansetron HCl 4 mg Q4HP PRN IV 10/22/24 13:45 10/30/24 23:09 4 MG Docusate Sodium 100 mg BIDPRN PRN PO 10/22/24 13:45 10/29/24 23:52 100 MG Acetaminophen 650 mg Q6HP PRN PO 10/22/24 13:45 10/30/24 03:33 650 MG Ceftriaxone Sodium 50 ml @ 100 mls/hr DAILY@09 IV 10/23/24 09:00 10/30/24 09:00 100 MLS/HR Albuterol 2.5 mg Q4HR NEB 10/23/24 06:00 10/31/24 05:57 2.5 MG Ipratropium [place] 0.5 mg Q4HR NEB 10/23/24 06:00 10/31/24 05:57 0.5 MG Enoxaparin Sodium 40 mg DAILY SC 10/24/24 10:00 10/30/24 09:02 40 MG Pantoprazole Sodium 40 mg DAILY IV 10/24/24 10:00 10/30/24 09:00 40 MG Budesonide 0.5 mg BID NEB 10/23/24 22:00 10/31/24 05:57 0.5 MG Thiamine HCl 100 mg DAILY IV 10/26/24 10:00 10/30/24 09:01 100 MG Hydralazine HCl 10 mg Q6HP PRN IV 10/27/24 03:30 10/29/24 18:20 10 MG Chlordiazepoxide HCl 25 mg Q6HR PO 10/27/24 18:00 10/30/24 23:00 25 MG Methylprednisolone Sodium Succinate 40 mg BID IV 10/28/24 22:00 10/30/24 23:00 40 MG Nifedipine 60 mg DAILY PO 10/30/24 10:00 10/30/24 09:02 60 MG Clonidine HCl 0.1 mg Q4HP PRN PO 10/29/24 17:30 Metronidazole 100 ml @ 100 mls/hr Q8HR IV 10/31/24 14:00 Laboratory Results Laboratory Tests 10/31/24 03:40 Chemistry Test 10/31/24 03:40 Calcium Level 8.4 mg/dL (8.7-10.4) L Microbiology Microbiology Date/Time Source Procedure Growth Status 10/24/24 09:31 Nose MRSA Screen - Final Complete 10/22/24 11:02 Blood Blood Culture - Final NO GROWTH AFTER 5 DAYS OF INCUBATION. Complete 10/22/24 10:43 Sputum Gram Stain - Final Complete 10/22/24 10:43 Respiratory Culture - Final Haemophilus influenzae Complete Labs and/or images reviewed: Labs reviewed by me, Image(s) reviewed by me Assessment/Plan Assessment/Plan Impression: -acute asthma exacerbation -acute hypoxic and hypercarbic respiratory failure -sirs -history of alcoholism -community-acquired pneumonia with Haemophilus influenzae -acute delirium -constipation Plan: Events: Patient had CT scan with oral contrast of the abdomen and pelvis. Noted probable ileus. Patient having mild loose stools. Reported nausea and vomiting yesterday evening. Patient will be made NPO status. Gastroenterology consultation placed. -physical therapy -continue Rocephin, add Flagyl -O2 supplementation to keep saturation greater than 92% -IV Reglan -continue Solu-Medrol and Pulmicort -DuoNebs q.4 hours -repeat labs, chest x-ray, ABG in a.m. Critical care time spent with patient discussing and formulating plan of care: 40 minutes. This does not include time spent performing procedures. This medical document was created using an electronic medical record system with [employer] dictation system. Although this document has been carefully reviewed, there may still be some phonetic and typographical errors. These areas are purely typographical due to imperfections of the software programs, and do not reflect any compromise in the patient's medical care. Plan discussed with: Patient, Other (RN) My Orders Orders - RAMA BENOIT NP Procedure Category Date Status Time Ct Ab Pel With Oral CT 10/30/24 Resulted Con Only 14:02 * Gi Dvh Sign Language Translator CONS 10/31/24 Transmitted 08:33 Npo (Nothing By DIET 10/31/24 Transmitted Mouth) Diet Breakfast Metronidazole PHA 10/31/24 In Process 500mg/100ml (Flagyl 14:00 Date of Service: Oct 31, 2024 Billing Provider: RAMA BENOIT NP Common Visit Codes: [id number] CARE 30-74 MIN RAMA BENOIT NP Oct 31, 2024 09:27
[2024-10-31] MEDS: METOCLOPRAMIDE HCL 5MG/ml INJ 2ml VIAL IV SCH (14:57)
[2024-10-31] MEDS: metroNIDAZOLE 500MG/100ML 100 ML IV SCH (15:00)
--- NOTE | 2024-10-31 21:02 | DVHINCON2 ---
Date of service: Oct 31, 2024 Referring Physician Abdominal distention nausea vomiting Reason for Consultation This 34-year-old gentleman admitted to the hospital with complaints of shortness of breath and wheezing. Patient is allergic to egg and apparently he had been problems with asthma and breathing. He was in the ER and apparently desaturated and hence was intubated And on ventilator and has been weaned off now last 24 abdominal distention with nausea vomiting and hence the reason for the GI consult History of Present Illness History of asthma no history of any bowel prep Past Medical History History of asthma No history of any bowel problems Past Surgical History None Family History: Patient reports no known family medical history. Family History Noncontributory Social History Denies smoking or drinking Allergies: Uncoded Allergies: EGGS (Allergy, Unknown, 08/28/24) Home Meds Active Scripts Prednisone (Prednisone) 20 Mg Tab, 40 MG PO DAILY for 5 Days, #10 MG Prov:FERMIN NOGUEIRA MD 08/28/24 Current Medications Current Medications Medications (Trade) Dose Ordered Sig/Chencho Route PRN Reason Start Time Stop Time Status Last Admin Metronidazole 100 ml @ 100 mls/hr Q8HR IV 10/31/24 14:00 10/31/24 15:00 Metoclopramide HCl (Reglan Injection) 10 mg Q8HR IV 10/31/24 14:00 10/31/24 14:57 Review of Systems Unremarkable Vital Signs Vital Signs Date Time Temp Pulse Resp B/P (MAP) Pulse Ox O2 Delivery O2 Flow Rate FiO2 10/31/24 19:00 76 23 141/91 (108) 95 10/31/24 18:28 Nasal Cannula 4.0 10/31/24 18:28 36 10/31/24 16:00 98.4 98.4 Physical Exam Moderately built and nourished male in no acute distress Abdominal distention moderate but apparently slightly better [facility] examination no pallor no icterus Lungs are clear Abdomen moderate distention no rigidity no guarding no masses Bowel sounds normal Extremities no edema Neuro grossly intact Labs unremarkable Labs/Diagnostic Data Labs Test 10/31/24 03:40 10/30/24 06:15 10/30/24 03:11 10/29/24 10:15 Range/Units White Blood Count 17.1 H 4.4-10.8 10^3/uL Red Blood Count 5.11 4.5-5.90 10^6/uL Hemoglobin 15.5 13.5-17.5 g/dL Hematocrit 45.6 41.0-53.0 % Mean Corpuscular Volume 89.3 80.0-100.0 fL Mean Corpuscular Hemoglobin 30.4 28.0-32.0 pg Mean Corpuscular Hemoglobin Concent 34.1 32.0-36.0 g/dL Red Cell Distribution Width 12.9 11.8-14.3 % Platelet Count 193 140-450 10^3/uL Mean Platelet Volume 8.2 6.9-10.8 fL Neutrophils (%) (Auto) 88.0 H 37.0-80.0 % Lymphocytes (%) (Auto) 6.3 L 10.0-50.0 % Monocytes (%) (Auto) 5.4 0.0-12.0 % Eosinophils (%) (Auto) 0.1 0.0-7.0 % Basophils (%) (Auto) 0.2 0.0-2.0 % Neutrophils # (Auto) 15.0 H 1.6-8.6 10 ^3/uL Lymphocytes # (Auto) 1.1 0.4-5.4 10 ^3/uL Monocytes # (Auto) 0.9 0-1.3 10 ^3/uL Eosinophils # (Auto) 0 0-0.8 10 ^3/uL Basophils # (Auto) 0 0-0.2 10 ^3/uL Nucleated Red Blood Cells 0.1 % Sodium Level 141 136-145 mmol/L Potassium Level 4.1 3.5-5.1 mmol/L Chloride Level 104 98-107 mmol/L Carbon Dioxide Level 28 20-31 mmol/L Anion Gap 9 5-15 Blood Urea Nitrogen 29 H 9-23 mg/dL Creatinine 0.77 0.700-1.30 mg/dL Glomerular Filtration Rate Calc 120 >90 mL/min BUN/Creatinine Ratio 37.7 H 10.0-20.0 Serum Glucose 141 H 74-106 mg/dL Calcium Level 8.4 L 8.7-10.4 mg/dL POC Glucose 153 H 70-106 mg/dl Differential Total Cells Counted 100.0 100 Neutrophils % (Manual) 87 H 37.0-80.0 Band Neutrophils % (Manual) 2 Lymphocytes % (Manual) 9 L 10.0-50.0 Monocytes % (Manual) 2 0-12 Eosinophils % (Manual) 0 0-7 Basophils % (Manual) 0 0.0-2.0 Metamyelocytes % (manual) 0 Myelocytes % (Manual) 0 Promyelocytes % (Manual) 0 Blast Cells % (Manual) 0 Reactive Lymphocytes 0 Platelet Estimate Adequate Blood Gas Specimen Type Arterial Blood Gas Sample Site Right radial Blood Gas Patient Temperature 37.0 Arterial Blood Date Drawn [id number] Arterial Blood pH 7.495 H 7.350-7.450 Arterial Blood Partial Pressure CO2 34.5 L 35.0-48.0 mmHg Arterial Blood Partial Pressure O2 60.7 L 83.0-108.0 mmHg Arterial Blood HCO3 26.0 21.0-28.0 mmol/L Arterial Blood Oxygen Saturation 91.5 L 94.0-98.0 % Arterial Blood Base Excess 3.2 H -2.0-3.0 mmol/L Arterial Blood Oxyhemoglobin 90.9 L 94.0-98.0 % Arterial Blood Carboxyhemoglobin 0.4 L 0.5-1.5 % Arterial Blood Methemoglobin 0.3 0.0-1.5 % Zuhair Test Modified Blood Gas Total Hemoglobin 15.50 13.5-17.5 g/dL Blood Gas Modality Vent - cpap FiO2 % 35.0 Blood Gas Pressure Support 8 Blood Gas PEEP or CPAP 5.0 Test 10/29/24 06:47 10/29/24 03:20 10/26/24 07:11 10/25/24 12:10 Range/Units Blood Gas Set Respiration Rate 20.0 Blood Gas Tidal Volume 500.0 Magnesium Level 2.5 1.6-2.6 mg/dL Blood Gas Critical Value Read Back yes Blood Gas Notified Whom claude lara md Blood Gas Notified Time [id number] Blood Gas Notified By graeme freeman, bailey Random Vancomycin Level 8.7 5-10 ug/mL Test 10/24/24 22:10 10/24/24 18:23 10/24/24 06:17 10/23/24 16:30 Range/Units Vancomycin Level Trough 27.5 H 5-10 ug/mL Specimen Drawn By Blood Gas Spontaneous Rate 14 Total Bilirubin 0.3 0.2-1.0 mg/dL Aspartate Amino Transferase (AST) 112 H 13-40 U/L Alanine Aminotransferase (ALT) 53 H 7-40 U/L Alkaline Phosphatase 74 46-116 U/L Total Protein 7.2 5.7-8.2 g/dL Albumin 4.5 3.2-4.8 g/dL Test 10/22/24 14:00 10/22/24 12:52 10/22/24 12:30 10/22/24 11:02 Range/Units Influenza Type A Antigen Negative Negative Influenza Type B Antigen Negative Negative SARS-CoV-2 Antigen (Rapid) Negative NEGATIVE Troponin I High Sensitivity 11 </=54 ng/L Plasma/Serum Blood Alcohol < 3.0 <10 mg/dL Urine Opiates Screen Neg NEGATIVE Urine Fentanyl Screen Neg NEGATIVE Urine Barbiturates Screen Neg NEGATIVE Urine Phencyclidine Screen Neg NEGATIVE Urine Amphetamines Screen Neg NEGATIVE Urine Benzodiazepines Screen Neg NEGATIVE Urine Cocaine Screen Neg NEGATIVE Urine Cannabinoids Screen Neg NEGATIVE Lactic Acid Level 1.9 0.4-2.0 mmol/L Microbiology Date/Time Source Procedure Growth Status 10/24/24 09:31 Nose MRSA Screen - Final Complete 10/22/24 11:02 Blood Blood Culture - Final NO GROWTH AFTER 5 DAYS OF INCUBATION. Complete 10/22/24 10:43 Sputum Gram Stain - Final Complete 10/22/24 10:43 Respiratory Culture - Final Haemophilus influenzae Complete Assessment 31-year-old admitted with asthma and respiratory failure intubated now presenting with complaints of abdominal distention nausea vomiting and possible ileus No tenderness no hematemesis no melena Had Bowel movements Abdomen exam is showing some distention but no tenderness no rigidity or guarding Clinical impression is possible ileus obstruction is less likely Plan/Recommendation We will recommend to monitor the electrolytes magnesium level His liver enzymes are high a few days ago we will recommend to repeat to ensure not getting worse We will also get a lipase levels to make sure no pancreatitis If symptoms persist may need further evaluations including small bowel series etc. Thank you Dr. Hu Plan discussed with: Patient NICOLE HU MD Oct 31, 2024 21:02
--- NOTE | 2024-10-31 23:17 | DVHPN2 ---
Progress Note - Dictate Date Seen: Oct 31, 2024 Has the PT tested + for MRSA If YES, has PT been informed?: No Medical Necessity Reason Pt with a Central, PICC or Fol: Yes The following are medically ne: Matamoros Catheter Reason for matamoros catheter: Strict I&O Subjective Patient seen and examined at bedside. Remains on supplemental oxygen Overnight events reviewed. vital signs Vital Sign Date Time Temp Pulse Resp B/P (MAP) Pulse Ox O2 Delivery O2 Flow Rate FiO2 10/31/24 22:28 85 15 100 10/31/24 22:00 Nasal Cannula* 4 36 10/31/24 22:00 148/91 (110) 10/31/24 20:00 100.0 100.0 Total Intake and Output 10/30/24 10/30/24 10/31/24 14:59 22:59 06:59 Intake Total 600 ml 1490 ml Output Total 650 ml 850 ml Balance 600 ml 840 ml -850 ml medications Current Medications Medications Dose Ordered Sig/[place] Route Start Time Stop Time Status Last Admin Dose Admin Ondansetron HCl 4 mg Q4HP PRN IV 10/22/24 13:45 10/30/24 23:09 4 MG Docusate Sodium 100 mg BIDPRN PRN PO 10/22/24 13:45 10/29/24 23:52 100 MG Acetaminophen 650 mg Q6HP PRN PO 10/22/24 13:45 10/30/24 03:33 650 MG Ceftriaxone Sodium 50 ml @ 100 mls/hr DAILY@09 IV 10/23/24 09:00 10/31/24 09:43 100 MLS/HR Albuterol 2.5 mg Q4HR NEB 10/23/24 06:00 10/31/24 22:21 2.5 MG Ipratropium [place] 0.5 mg Q4HR NEB 10/23/24 06:00 10/31/24 22:21 0.5 MG Enoxaparin Sodium 40 mg DAILY SC 10/24/24 10:00 10/31/24 09:45 40 MG Pantoprazole Sodium 40 mg DAILY IV 10/24/24 10:00 10/31/24 09:43 40 MG Budesonide 0.5 mg BID NEB 10/23/24 22:00 10/31/24 22:21 0.5 MG Thiamine HCl 100 mg DAILY IV 10/26/24 10:00 10/31/24 09:43 100 MG Hydralazine HCl 10 mg Q6HP PRN IV 10/27/24 03:30 10/29/24 18:20 10 MG Chlordiazepoxide HCl 25 mg Q6HR PO 10/27/24 18:00 10/30/24 23:00 25 MG Methylprednisolone Sodium Succinate 40 mg BID IV 10/28/24 22:00 10/31/24 22:37 40 MG Nifedipine 60 mg DAILY PO 10/30/24 10:00 10/30/24 09:02 60 MG Clonidine HCl 0.1 mg Q4HP PRN PO 10/29/24 17:30 Metronidazole 100 ml @ 100 mls/hr Q8HR IV 10/31/24 14:00 10/31/24 22:37 100 MLS/HR Metoclopramide HCl 10 mg Q8HR IV 10/31/24 14:00 10/31/24 22:37 10 MG objective Gen.: Patient lying in bed in no apparent distress. On supplemental oxygen. Head: Normocephalic, atraumatic. Eyes: EOMI/PERRLA. Ears: Normal hearing. Normal anatomy. Neck/trachea: Trachea midline, supple. Nose: Normal external anatomy. Mouth: Moist mucous membranes. Chest: Decreased air entry bilaterally. No wheezing or rhonchi. Cardiovascular: Positive S1, positive S2. Regular rate and rhythm. Abdomen: Positive bowel sounds in all 4 quadrants. Soft, non-tender, non- distended. : Deferred. Rectal: Deferred. Skin: Warm, dry. Intact. Extremities: 2+ radial pulses bilaterally. No lower extremity edema. Neuro: Awake, alert, oriented x4. No gross motor or sensory deficits. Cranial nerves II through XII intact. Gait not assessed. laboratory and microbiology Laboratory Tests 10/31/24 03:40 Test 10/31/24 03:40 Range/Units Serum Glucose 141 H 74-106 mg/dL Assessment/Plan Impression: Asthma exacerbation Acute hypoxic respiratory failure Systemic inflammatory response syndrome Pneumonia w/ Haemophilus influenzae Hx of alcohol abuse Hypokalemia Events: Remains on supplemental oxygen Currently on 4 LPM NC Taper O2 as tolerated No distress. Patient is AAO x4. CT scan with oral contrast of abdomen and pelvis noted probable ileus. Patient having mild loose stools. Reported nausea and vomiting yesterday evening. Gastroenterology consultation placed. Antiemetics Continue bronchodilators/Pulmicort Continue steroids Continue antibiotics Monitor renal function Monitor electrolytes. Supplement as necessary. Potassium at goal Physical therapy. Labs and imaging reviewed Plan: S/p extubation on 10/29/24 On supplemental oxygen Titrate to keep O2 sats above 92%. Blood pressure control Steroids Albuterol/Atrovent Antibiotics Nutrition Monitor renal function Monitor electrolytes. Supplement as necessary. Monitor ins and outs. GI and DVT prophylaxis Prognosis: Poor given patient's multiple co-morbidities. Condition: Critical Rest of plan per hospitalist and other consultants. A total of 35 minutes of critical care time was spent reviewing the patient record, examining the patient, making a diagnostic and therapeutic plan, discussing this plan with the medical personnel, following up on diagnostic studies and following the patient for clinical stability excluding any and all procedures. At least 50% of this time was spent in direct, [id number] contact. Thank you, MERRITT Mariano, for allowing me to participate in this patient's care. Further recommendations will depend on the patient's clinical course. Please do not hesitate to contact me if you have any questions or concerns. This medical document was created using an electronic medical record system with [employer] dictation system. Although these documentations are being carefully reviewed, there may still be some phonetic and typographical changes. The errors are purely typographical, due to imperfection on the software program, and do not reflect any compromise in the patient's medical care. Dietary Evaluation Review Comments: 1. Pt is on propofol, receiving fat energy 824kcal pt is on sucrose 170kcal from D5W 5% 1000ml out of MVI banan bag, recommend adding clinimix @41ml/hr for his protein needs. This protocol will support pt 1504 kcal, meeting his energy @ 129%, meeting his protein needs @33%. 2. 10/23 lab Mg 28H, consider remove MgSo4 from the MVI banana bag. Expected Outcomes/Goals: Inadeqaute protein support for intubation. Reassess needs when Pt has a more stablized medical condition and or his propofol infusion rate is changed. Plan discussed with: Patient, Other (RN) Critical Care Time(min): 35 CYNTHIA KENT MD Oct 31, 2024 23:17
[2024-11-01] VITALS (36 sets, daily range): BP systolic 115–159; BP diastolic 71–97; PULSE 61–110; RESP 12–28; TEMP 98.7–99.1; O2SAT 93–99
[2024-11-01 03:43] LABS: Basophils # (auto) 0 10 ^3/uL (0-0.2); Basophils % (auto) 0.1 % (0.0-2.0); Eosinophils # (auto) 0 10 ^3/uL (0-0.8); Eosinophils % (auto) 0.1 % (0.0-7.0); Hematocrit 43.6 % (41.0-53.0); Hemoglobin 15.1 g/dL (13.5-17.5); Lymphocytes # (auto) 1.2 10 ^3/uL (0.4-5.4); Lymphocytes % (auto) 8.5 % (10.0-50.0); Mean Corpuscular Hemoglobin 30.9 pg (28.0-32.0); Mean Corpuscular Hgb Conc. 34.7 g/dL (32.0-36.0); Mean Corpuscular Volume 89.2 fL (80.0-100.0); Monocytes # (auto) 0.9 10 ^3/uL (0-1.3); Monocytes % (auto) 6.3 % (0.0-12.0); Neutrophils # (auto) 12.5 10 ^3/uL (1.6-8.6); Nucleated Red Blood Cells % 0.1 %; Platelet Count (auto) 187 10^3/uL (140-450); Red Blood Cells 4.89 10^6/uL (4.5-5.90); Red Cell Distribution Width 12.7 % (11.8-14.3); White Blood Cell 14.7 10^3/uL (4.4-10.8)
[2024-11-01 04:06] LABS: Albumin 3.8 g/dL (3.2-4.8); Anion Gap 8 (5-15); Carbon Dioxide 28 mmol/L (20-31); Chloride 105 mmol/L (98-107); Magnesium 2.3 mg/dL (1.6-2.6); Potassium 4.6 mmol/L (3.5-5.1); Sodium 141 mmol/L (136-145); Total Protein 6.3 g/dL (5.7-8.2)
[2024-11-01 04:07] LABS: Alanine Aminotransferase 171 U/L (7-40); Alkaline Phosphatase 43 U/L (46-116); Aspartate Aminotransferase 74 U/L (13-40); Bilirubin, Total 1.7 mg/dL (0.2-1.0); Blood Urea Nitrogen 26 mg/dL (9-23); Calcium 8.4 mg/dL (8.7-10.4); Glucose 131 mg/dL (74-106); Lipase 202 U/L (12-53)
[2024-11-01] MEDS: LACTATED RINGER'S 1,000 ML IV SCH (09:30)
--- NOTE | 2024-11-01 10:02 | DVHPN2 ---
Subjective Patient denies any symptoms. Reports of vomiting yesterday evening. Reviewed: Care Plan, H&P, Labs, Medications Changes from previous H/P or p: No Changes General: Per HPI Eyes: No Pain, No Vision change, No Conjunctivae inflammation, No Eyelid inflammation, No Other, No Redness ENT: No Ear pain, No Ear discharge, No Nose pain, No Nose discharge, No Nose congestion, No Mouth pain, No Mouth swelling, No Throat pain, No Throat swelling, No Other Cardiovascular: No Chest Pain, No Palpitations, No Orthopnea, No Paroxysmal Noc. Dyspnea, No Edema, No Lt Headedness, No Other Respiratory: Cough; No Dry; Shortness of breath, SOB with excertion, Wheezing; No Hemoptysis, No Pleuritic Pain, No Sputum, No Other Gastrointestinal: No Nausea, No Vomiting, No Abdominal Pain, No Diarrhea, No Constipation, No Melena, No Hematochezia, No Other Genitourinary: No Dysuria, No Frequency, No Incontinence, No Hematuria, No Retention, No Other Musculoskeletal: No other, No neck pain, No shoulder pain, No arm pain, No back pain, No hand pain, No leg pain, No foot pain Skin: No Rash, No Lesions, No Jaundice, No Bruising, No Other Objective Vitals Vital Signs Date Time Temp Pulse Resp B/P (MAP) Pulse Ox O2 Delivery O2 Flow Rate FiO2 11/01/24 09:20 159/78 11/01/24 07:09 97 Nasal Cannula 3.0 11/01/24 07:09 71 16 11/01/24 07:09 32 11/01/24 04:00 98.9 98.9 Intake/Output Intake and Output 11/01/24 07:00 Intake Total 350 ml Output Total 1910 ml Balance -1560 ml Intake Oral 0 ml IV Total 350 ml Output Urine Total 1910 ml General Appearance: Alert, Oriented X3, mild distress, Other (RN) HEENT: Atraumatic, PERRLA Lungs: Other (Bilateral wheezing. Peak pressure 40) Cardiovascular: Normal S1, Normal S2 Abdomen: Other (Hypoactive bowel sounds. Distended abdomen.) Genitourinary: No Apparent Abnormalities (Reeder catheter) Musculoskeletal: Other (Unable to assess) Neuro: Cranial nerves 3-12 NL, Other (Unable to assess) Skin: Dry, Intact Psych/Mental Status: Other (Unable to assess) Medications Current Medications Medications Dose Ordered Sig/Chencho Route Start Time Stop Time Status Last Admin Dose Admin Ondansetron HCl 4 mg Q4HP PRN IV 10/22/24 13:45 10/30/24 23:09 4 MG Docusate Sodium 100 mg BIDPRN PRN PO 10/22/24 13:45 10/29/24 23:52 100 MG Acetaminophen 650 mg Q6HP PRN PO 10/22/24 13:45 10/30/24 03:33 650 MG Ceftriaxone Sodium 50 ml @ 100 mls/hr DAILY@09 IV 10/23/24 09:00 11/01/24 09:16 100 MLS/HR Albuterol 2.5 mg Q4HR NEB 10/23/24 06:00 11/01/24 07:09 2.5 MG Ipratropium [place] 0.5 mg Q4HR NEB 10/23/24 06:00 11/01/24 07:09 0.5 MG Enoxaparin Sodium 40 mg DAILY SC 10/24/24 10:00 11/01/24 09:17 40 MG Pantoprazole Sodium 40 mg DAILY IV 10/24/24 10:00 11/01/24 09:16 40 MG Budesonide 0.5 mg BID NEB 10/23/24 22:00 11/01/24 07:08 0.5 MG Thiamine HCl 100 mg DAILY IV 10/26/24 10:00 11/01/24 09:16 100 MG Hydralazine HCl 10 mg Q6HP PRN IV 10/27/24 03:30 11/01/24 09:20 10 MG Chlordiazepoxide HCl 25 mg Q6HR PO 10/27/24 18:00 10/30/24 23:00 25 MG Methylprednisolone Sodium Succinate 40 mg BID IV 10/28/24 22:00 11/01/24 09:17 40 MG Nifedipine 60 mg DAILY PO 10/30/24 10:00 10/30/24 09:02 60 MG Clonidine HCl 0.1 mg Q4HP PRN PO 10/29/24 17:30 Metronidazole 100 ml @ 100 mls/hr Q8HR IV 10/31/24 14:00 11/01/24 05:58 100 MLS/HR Metoclopramide HCl 10 mg Q8HR IV 10/31/24 14:00 11/01/24 05:58 10 MG Lactated Ringer's 1,000 ml @ 100 mls/hr Q10H IV 11/01/24 09:30 Laboratory Results Laboratory Tests 11/01/24 03:15 Chemistry Test 11/01/24 03:15 Albumin 3.8 g/dL (3.2-4.8) Calcium Level 8.4 mg/dL (8.7-10.4) L Magnesium Level 2.3 mg/dL (1.6-2.6) Total Protein 6.3 g/dL (5.7-8.2) Lipid panel Test 11/01/24 03:15 Lipase 202 U/L (12-53) H LFT Test 11/01/24 03:15 Alanine Aminotransferase (ALT) 171 U/L (7-40) H Alkaline Phosphatase 43 U/L (46-116) L Aspartate Amino Transferase (AST) 74 U/L (13-40) H Total Bilirubin 1.7 mg/dL (0.2-1.0) H Microbiology Microbiology Date/Time Source Procedure Growth Status 10/24/24 09:31 Nose MRSA Screen - Final Complete 10/22/24 11:02 Blood Blood Culture - Final NO GROWTH AFTER 5 DAYS OF INCUBATION. Complete 10/22/24 10:43 Sputum Gram Stain - Final Complete 10/22/24 10:43 Respiratory Culture - Final Haemophilus influenzae Complete Labs and/or images reviewed: Labs reviewed by me, Image(s) reviewed by me Assessment/Plan Assessment/Plan Impression: -acute asthma exacerbation -acute hypoxic and hypercarbic respiratory failure -sirs -history of alcoholism -community-acquired pneumonia with Haemophilus influenzae -acute delirium -constipation -ileus Plan: Events: Patient clinically reports that his abdomen is less distended, painful, as well as the patient having positive flatus and bowel movement. Repeat KUB pending -continue NPO status, and IV fluids. Start oral intake based on KUB results and recommendations by GI -physical therapy -continue Rocephin, add Flagyl -O2 supplementation to keep saturation greater than 92% -IV Reglan -continue Solu-Medrol and Pulmicort -DuoNebs q.4 hours -transfer to step-down ICU Critical care time spent with patient discussing and formulating plan of care: 40 minutes. This does not include time spent performing procedures. This medical document was created using an electronic medical record system with [employer] dictation system. Although this document has been carefully reviewed, there may still be some phonetic and typographical errors. These areas are purely typographical due to imperfections of the software programs, and do not reflect any compromise in the patient's medical care. Plan discussed with: Patient, Other (RN) My Orders Orders - RAMA BENOIT NP Procedure Category Date Status Time Transfer Orders XFER 11/01/24 Transmitted 09:20 Oob To Chair DEVEN 11/01/24 In Process 09:20 Kub Abdomen Single XY 11/01/24 Taken View 09:20 Lactated Ringer's PHA 11/01/24 In Process 09:30 Pt Request For Service PT 11/01/24 Logged 09:44 Date of Service: Nov 01, 2024 Billing Provider: RAMA BENOIT NP Common Visit Codes: [id number] CARE 30-74 MIN RAMA BENOIT NP Nov 01, 2024 10:02
--- NOTE | 2024-11-01 10:59 | DVH ---
Date: 11/01/2024 09:29 AM Examination: XY KUB ABDOMEN SINGLE VIEW History: ileus Comparison: XY KUB ABDOMEN SINGLE VIEW on DOS: 10/30/24 TECHNIQUE: Frontal views of the abdomen was obtained. FINDINGS: Diffusely dilated loops of small bowel measuring up to 5.8 cm, consistent with small-bowel obstructio n versus ileus. The lung bases are unremarkable. No acute osseous abnormality identified. IMPRESSION: Diffusely dilated loops of small bowel measuring up to 5.8 cm, consistent with small-bowel obstructio n versus ileus.
--- NOTE | 2024-11-01 14:14 | DVHPN2 ---
Progress Note - Dictate Date Seen: Nov 01, 2024 Has the PT tested + for MRSA If YES, has PT been informed?: No Medical Necessity Reason Pt with a Central, PICC or Fol: Yes The following are medically ne: Matamoros Catheter Reason for matamoros catheter: Strict I&O Subjective Patient is feeling better with less abdominal pain and distention as per the patient No nausea vomiting NPO for now vital signs Vital Sign Date Time Temp Pulse Resp B/P (MAP) Pulse Ox O2 Delivery O2 Flow Rate FiO2 11/01/24 10:00 80 11/01/24 10:00 24 96 Nasal Cannula* 3 32 11/01/24 09:20 159/78 11/01/24 04:00 98.9 98.9 Total Intake and Output 10/31/24 10/31/24 11/01/24 15:00 23:00 07:00 Intake Total 50 ml 200 ml 100 ml Output Total 750 ml 1160 ml Balance 50 ml -550 ml -1060 ml medications Current Medications Medications Dose Ordered Sig/Chencho Route Start Time Stop Time Status Last Admin Dose Admin Ondansetron HCl 4 mg Q4HP PRN IV 10/22/24 13:45 10/30/24 23:09 4 MG Docusate Sodium 100 mg BIDPRN PRN PO 10/22/24 13:45 10/29/24 23:52 100 MG Acetaminophen 650 mg Q6HP PRN PO 10/22/24 13:45 10/30/24 03:33 650 MG Ceftriaxone Sodium 50 ml @ 100 mls/hr DAILY@09 IV 10/23/24 09:00 11/01/24 09:16 100 MLS/HR Albuterol 2.5 mg Q4HR NEB 10/23/24 06:00 11/01/24 10:21 2.5 MG Ipratropium [place] 0.5 mg Q4HR NEB 10/23/24 06:00 11/01/24 10:21 0.5 MG Enoxaparin Sodium 40 mg DAILY SC 10/24/24 10:00 11/01/24 09:17 40 MG Pantoprazole Sodium 40 mg DAILY IV 10/24/24 10:00 11/01/24 09:16 40 MG Budesonide 0.5 mg BID NEB 10/23/24 22:00 11/01/24 07:08 0.5 MG Thiamine HCl 100 mg DAILY IV 10/26/24 10:00 11/01/24 09:16 100 MG Hydralazine HCl 10 mg Q6HP PRN IV 10/27/24 03:30 11/01/24 09:20 10 MG Chlordiazepoxide HCl 25 mg Q6HR PO 10/27/24 18:00 10/30/24 23:00 25 MG Methylprednisolone Sodium Succinate 40 mg BID IV 10/28/24 22:00 11/01/24 09:17 40 MG Nifedipine 60 mg DAILY PO 10/30/24 10:00 10/30/24 09:02 60 MG Clonidine HCl 0.1 mg Q4HP PRN PO 10/29/24 17:30 Metronidazole 100 ml @ 100 mls/hr Q8HR IV 10/31/24 14:00 11/01/24 05:58 100 MLS/HR Metoclopramide HCl 10 mg Q8HR IV 10/31/24 14:00 11/01/24 05:58 10 MG Lactated Ringer's 1,000 ml @ 100 mls/hr Q10H IV 11/01/24 09:30 11/01/24 09:30 100 MLS/HR objective Abdomen showed some mild distention still no tenderness no rigidity no guarding bowel sounds present Abdominal series shows still dilated bowel the small bowel loops consistent with ileus versus small-bowel obstruction simply areas Labs shows lipase to be increased to 202 possible pancreatitis Liver enzymes were also slightly increased Gallbladder and biliary tract disease can not and pancreatic disease can not be exclude laboratory and microbiology Laboratory Tests 11/01/24 03:15 Test 11/01/24 03:15 Range/Units Serum Glucose 131 H 74-106 mg/dL Assessment/Plan 31-year-old admitted with asthma and respiratory failure intubated now presenting with complaints of abdominal distention nausea vomiting and possible ileus No tenderness no hematemesis no melena Had Bowel movements Abdomen exam is showing some distention but no tenderness no rigidity or guarding Patient is clinically better with less pain as per the patient Abdominal distention still there but less as per the patient Abdomen is soft no tenderness no rigidity no guarding Liver enzymes are high lipase is high Possibility of biliary tract disease with pancreatitis to be considered Plans Repeat the KUB tomorrow and the liver enzymes and pancreatic enzymes lipase If symptoms still persistent abnormal liver enzymes may have to do an MRI MRCP Continue to treat with PPIs and NPO except for clear liquids for now And continue the present regime Thank you Dr. Hu Dietary Evaluation Review Comments: 1. Pt is on propofol, receiving fat energy 824kcal pt is on sucrose 170kcal from D5W 5% 1000ml out of MVI banan bag, recommend adding clinimix @41ml/hr for his protein needs. This protocol will support pt 1504 kcal, meeting his energy @ 129%, meeting his protein needs @33%. 2. 10/23 lab Mg 28H, consider remove MgSo4 from the MVI banana bag. Expected Outcomes/Goals: Inadeqaute protein support for intubation. Reassess needs when Pt has a more stablized medical condition and or his propofol infusion rate is changed. Plan discussed with: Patient NICOLE HU MD Nov 01, 2024 14:14
--- NOTE | 2024-11-01 23:48 | DVHPN2 ---
Progress Note - Dictate Date Seen: Nov 01, 2024 Has the PT tested + for MRSA If YES, has PT been informed?: No Medical Necessity Reason Pt with a Central, PICC or Fol: Yes The following are medically ne: Matamoros Catheter Reason for matamoros catheter: Strict I&O Subjective Patient seen and examined at bedside. Breathing comfortably on room air Overnight events reviewed. vital signs Vital Sign Date Time Temp Pulse Resp B/P (MAP) Pulse Ox O2 Delivery O2 Flow Rate FiO2 11/01/24 23:02 63 20 99 11/01/24 22:50 Nasal Cannula* 3 32 11/01/24 22:00 11/01/24 20:00 99.1 99.1 Total Intake and Output 10/31/24 10/31/24 11/01/24 15:00 23:00 07:00 Intake Total 50 ml 200 ml 100 ml Output Total 750 ml 1160 ml Balance 50 ml -550 ml -1060 ml medications Current Medications Medications Dose Ordered Sig/Chencho Route Start Time Stop Time Status Last Admin Dose Admin Ondansetron HCl 4 mg Q4HP PRN IV 10/22/24 13:45 11/01/24 19:21 4 MG Docusate Sodium 100 mg BIDPRN PRN PO 10/22/24 13:45 10/29/24 23:52 100 MG Acetaminophen 650 mg Q6HP PRN PO 10/22/24 13:45 10/30/24 03:33 650 MG Ceftriaxone Sodium 50 ml @ 100 mls/hr DAILY@09 IV 10/23/24 09:00 11/01/24 09:16 100 MLS/HR Albuterol 2.5 mg Q4HR NEB 10/23/24 06:00 11/01/24 22:50 2.5 MG Ipratropium [place] 0.5 mg Q4HR NEB 10/23/24 06:00 11/01/24 22:50 0.5 MG Enoxaparin Sodium 40 mg DAILY SC 10/24/24 10:00 11/01/24 09:17 40 MG Pantoprazole Sodium 40 mg DAILY IV 10/24/24 10:00 11/01/24 09:16 40 MG Budesonide 0.5 mg BID NEB 10/23/24 22:00 11/01/24 22:50 0.5 MG Thiamine HCl 100 mg DAILY IV 10/26/24 10:00 11/01/24 09:16 100 MG Hydralazine HCl 10 mg Q6HP PRN IV 10/27/24 03:30 11/01/24 09:20 10 MG Chlordiazepoxide HCl 25 mg Q6HR PO 10/27/24 18:00 10/30/24 23:00 25 MG Methylprednisolone Sodium Succinate 40 mg BID IV 10/28/24 22:00 11/01/24 22:07 40 MG Nifedipine 60 mg DAILY PO 10/30/24 10:00 10/30/24 09:02 60 MG Clonidine HCl 0.1 mg Q4HP PRN PO 10/29/24 17:30 Metronidazole 100 ml @ 100 mls/hr Q8HR IV 10/31/24 14:00 11/01/24 22:07 100 MLS/HR Metoclopramide HCl 10 mg Q8HR IV 10/31/24 14:00 11/01/24 22:07 10 MG Lactated Ringer's 1,000 ml @ 100 mls/hr Q10H IV 11/01/24 09:30 11/01/24 23:12 100 MLS/HR objective Gen.: Patient lying in bed in no apparent distress. On room air. Head: Normocephalic, atraumatic. Eyes: EOMI/PERRLA. Ears: Normal hearing. Normal anatomy. Neck/trachea: Trachea midline, supple. Nose: Normal external anatomy. Mouth: Moist mucous membranes. Chest: Decreased air entry bilaterally. No wheezing or rhonchi. Cardiovascular: Positive S1, positive S2. Regular rate and rhythm. Abdomen: Positive bowel sounds in all 4 quadrants. Soft, non-tender, non- distended. : Deferred. Rectal: Deferred. Skin: Warm, dry. Intact. Extremities: 2+ radial pulses bilaterally. No lower extremity edema. Neuro: Awake, alert, oriented x4. No gross motor or sensory deficits. Cranial nerves II through XII intact. Gait not assessed. laboratory and microbiology Laboratory Tests 11/01/24 03:15 Test 11/01/24 03:15 Range/Units Serum Glucose 131 H 74-106 mg/dL Assessment/Plan Impression: Asthma exacerbation Acute hypoxic respiratory failure Systemic inflammatory response syndrome Pneumonia w/ Haemophilus influenzae Hx of alcohol abuse Hypokalemia Events: Improved O2 requirements Currently breathing on room air Supplemental oxygen PRN No new respiratory complaints. Chest/abdomen x-ray reviewed; no lung base abnormalities. Diffusely dilated loops of small bowel measuring up to 5.8 cm consistent with SBO vs. ileus. Gastroenterology recommendations appreciated. On Reglan Continue bronchodilators/Pulmicort Continue steroids - Taper as tolerated Continue antibiotics Physical therapy. Labs and imaging reviewed Plan: S/p extubation on 10/29/24 On supplemental oxygen PRN Titrate to keep O2 sats above 92%. Blood pressure control Steroids Albuterol/Atrovent Antibiotics Nutrition Follow up GI recommendations Monitor renal function Monitor electrolytes. Supplement as necessary. Monitor ins and outs. GI and DVT prophylaxis Prognosis: Poor given patient's multiple co-morbidities. Condition: Critical Rest of plan per hospitalist and other consultants. A total of 35 minutes of critical care time was spent reviewing the patient record, examining the patient, making a diagnostic and therapeutic plan, discussing this plan with the medical personnel, following up on diagnostic studies and following the patient for clinical stability excluding any and all procedures. At least 50% of this time was spent in direct, [id number] contact. Thank you, MERRITT Mariano, for allowing me to participate in this patient's care. Further recommendations will depend on the patient's clinical course. Please do not hesitate to contact me if you have any questions or concerns. This medical document was created using an electronic medical record system with [employer] dictation system. Although these documentations are being carefully reviewed, there may still be some phonetic and typographical changes. The errors are purely typographical, due to imperfection on the software program, and do not reflect any compromise in the patient's medical care. Dietary Evaluation Review Comments: 1. Pt is on propofol, receiving fat energy 824kcal pt is on sucrose 170kcal from D5W 5% 1000ml out of MVI banan bag, recommend adding clinimix @41ml/hr for his protein needs. This protocol will support pt 1504 kcal, meeting his energy @ 129%, meeting his protein needs @33%. 2. 10/23 lab Mg 28H, consider remove MgSo4 from the MVI banana bag. Expected Outcomes/Goals: Inadeqaute protein support for intubation. Reassess needs when Pt has a more stablized medical condition and or his propofol infusion rate is changed. Plan discussed with: Other (RN) Critical Care Time(min): 35 CYNTHIA KENT MD Nov 01, 2024 23:48
[2024-11-02] VITALS (67 sets, daily range): BP systolic 126–145; BP diastolic 81–89; PULSE 66–111; RESP 11–30; TEMP 97.9–99.7; O2SAT 91–100
[2024-11-02 05:23] LABS: Basophils # (auto) 0 10 ^3/uL (0-0.2); Basophils % (auto) 0.2 % (0.0-2.0); Eosinophils # (auto) 0 10 ^3/uL (0-0.8); Eosinophils % (auto) 0.3 % (0.0-7.0); Hematocrit 42.4 % (41.0-53.0); Hemoglobin 14.4 g/dL (13.5-17.5); Lymphocytes # (auto) 1.6 10 ^3/uL (0.4-5.4); Lymphocytes % (auto) 10.6 % (10.0-50.0); Mean Corpuscular Hemoglobin 30.3 pg (28.0-32.0); Mean Corpuscular Volume 89.4 fL (80.0-100.0); Monocytes # (auto) 1.1 10 ^3/uL (0-1.3); Monocytes % (auto) 7.5 % (0.0-12.0); Neutrophils # (auto) 11.9 10 ^3/uL (1.6-8.6); Neutrophils % (auto) 81.4 % (37.0-80.0); Platelet Count (auto) 164 10^3/uL (140-450); Red Blood Cells 4.74 10^6/uL (4.5-5.90); Red Cell Distribution Width 12.5 % (11.8-14.3); White Blood Cell 14.7 10^3/uL (4.4-10.8)
[2024-11-02 05:42] LABS: Alanine Aminotransferase 242 U/L (7-40); Albumin 3.7 g/dL (3.2-4.8); Alkaline Phosphatase 43 U/L (46-116); Anion Gap 7 (5-15); Aspartate Aminotransferase 80 U/L (13-40); BUN/Creatinine Ratio 28.9 (10.0-20.0); Bilirubin, Total 1.5 mg/dL (0.2-1.0); Blood Urea Nitrogen 22 mg/dL (9-23); Calcium 8.2 mg/dL (8.7-10.4); Carbon Dioxide 26 mmol/L (20-31); Chloride 106 mmol/L (98-107); Glucose 102 mg/dL (74-106); Lipase 385 U/L (12-53); Potassium 4.4 mmol/L (3.5-5.1); Sodium 139 mmol/L (136-145); Total Protein 6.1 g/dL (5.7-8.2)
--- NOTE | 2024-11-02 15:57 | DVHPN2 ---
Progress Note - Dictate Date Seen: Nov 02, 2024 Has the PT tested + for MRSA If YES, has PT been informed?: No Medical Necessity Reason Pt with a Central, PICC or Fol: Yes The following are medically ne: Matamoros Catheter Reason for matamoros catheter: Strict I&O Subjective Patient is feeling better with less abdominal pain and distention as per the patient No nausea vomiting NPO for now Tolerated liquid diet well Patient is now moved to [place] vital signs Vital Sign Date Time Temp Pulse Resp B/P (MAP) Pulse Ox O2 Delivery O2 Flow Rate FiO2 11/02/24 14:30 69 17 97 11/02/24 14:00 Nasal Cannula* 3 32 11/02/24 12:00 98.6 98.6 Total Intake and Output 11/01/24 11/01/24 11/02/24 15:00 23:00 07:00 Intake Total 600 ml 1100 ml 1000 ml Output Total 900 ml 400 ml Balance 600 ml 200 ml 600 ml medications Current Medications Medications Dose Ordered Sig/Chencho Route Start Time Stop Time Status Last Admin Dose Admin Ondansetron HCl 4 mg Q4HP PRN IV 10/22/24 13:45 11/02/24 01:27 4 MG Docusate Sodium 100 mg BIDPRN PRN PO 10/22/24 13:45 10/29/24 23:52 100 MG Acetaminophen 650 mg Q6HP PRN PO 10/22/24 13:45 10/30/24 03:33 650 MG Ceftriaxone Sodium 50 ml @ 100 mls/hr DAILY@09 IV 10/23/24 09:00 11/02/24 08:04 100 MLS/HR Albuterol 2.5 mg Q4HR NEB 10/23/24 06:00 11/02/24 14:26 2.5 MG Ipratropium [place] 0.5 mg Q4HR NEB 10/23/24 06:00 11/02/24 14:26 0.5 MG Enoxaparin Sodium 40 mg DAILY SC 10/24/24 10:00 11/02/24 09:58 40 MG Pantoprazole Sodium 40 mg DAILY IV 10/24/24 10:00 11/02/24 09:58 40 MG Budesonide 0.5 mg BID NEB 10/23/24 22:00 11/02/24 07:02 0.5 MG Thiamine HCl 100 mg DAILY IV 10/26/24 10:00 11/02/24 09:58 100 MG Hydralazine HCl 10 mg Q6HP PRN IV 10/27/24 03:30 11/01/24 09:20 10 MG Chlordiazepoxide HCl 25 mg Q6HR PO 10/27/24 18:00 11/02/24 12:06 25 MG Methylprednisolone Sodium Succinate 40 mg BID IV 10/28/24 22:00 11/02/24 09:58 40 MG Nifedipine 60 mg DAILY PO 10/30/24 10:00 11/02/24 09:59 60 MG Clonidine HCl 0.1 mg Q4HP PRN PO 10/29/24 17:30 Metronidazole 100 ml @ 100 mls/hr Q8HR IV 10/31/24 14:00 11/02/24 13:56 100 MLS/HR Metoclopramide HCl 10 mg Q8HR IV 10/31/24 14:00 11/02/24 14:07 10 MG Lactated Ringer's 1,000 ml @ 100 mls/hr Q10H IV 11/01/24 09:30 11/02/24 11:01 100 MLS/HR objective Abdomen showed some mild distention still no tenderness no rigidity no guarding bowel sounds present Abdominal series shows still dilated bowel the small bowel loops consistent with ileus versus small-bowel obstruction simply areas Labs shows lipase to be increased to 202 possible pancreatitis Liver enzymes were also slightly increased laboratory and microbiology Laboratory Tests 11/02/24 05:07 Test 11/02/24 05:07 Range/Units Serum Glucose 102 74-106 mg/dL Assessment/Plan This 31-year-old with abdominal pain and distention has got some mild lipase elevations as well as abnormal liver enzymes her abdominal distention is better and lipase bowel movements as well if tolerating diet okay We will recommend to follow the lipase level as well as the liver enzymes Also recommend to slowly increase the diet and see the response Clinically he is is much better and improving well thank you Dr. Hu Dietary Evaluation Review Comments: 1. Pt is on propofol, receiving fat energy 824kcal pt is on sucrose 170kcal from D5W 5% 1000ml out of MVI banan bag, recommend adding clinimix @41ml/hr for his protein needs. This protocol will support pt 1504 kcal, meeting his energy @ 129%, meeting his protein needs @33%. 2. 10/23 lab Mg 28H, consider remove MgSo4 from the MVI banana bag. Expected Outcomes/Goals: Inadeqaute protein support for intubation. Reassess needs when Pt has a more stablized medical condition and or his propofol infusion rate is changed. Plan discussed with: Patient NICOLE HU MD Nov 02, 2024 15:57
--- NOTE | 2024-11-02 16:37 | DVHPN2 ---
Subjective Feels better. He had breakfast and lunch Reviewed: Care Plan, H&P, Labs, Medications, Previous Orders, Radiology Changes from previous H/P or p: No Changes General: Per HPI Objective Vitals Vital Signs Date Time Temp Pulse Resp B/P (MAP) Pulse Ox O2 Delivery O2 Flow Rate FiO2 11/02/24 16:30 79 25 95 11/02/24 16:00 Nasal Cannula* 3 32 11/02/24 12:00 98.6 98.6 Intake/Output Intake and Output 11/02/24 07:00 Intake Total 2700 ml Output Total 1300 ml Balance 1400 ml Intake Oral 0 ml IV Total 2700 ml Output Urine Total 1300 ml # Bowel Movements 1 General Appearance: Alert, Oriented X3, Cooperative, No acute distress HEENT: Atraumatic Lungs: Other (Few crackles bilateral lungs) Cardiovascular: Regular rate Abdomen: Soft Medications Current Medications Medications Dose Ordered Sig/Chencho Route Start Time Stop Time Status Last Admin Dose Admin Ondansetron HCl 4 mg Q4HP PRN IV 10/22/24 13:45 11/02/24 01:27 4 MG Docusate Sodium 100 mg BIDPRN PRN PO 10/22/24 13:45 10/29/24 23:52 100 MG Acetaminophen 650 mg Q6HP PRN PO 10/22/24 13:45 10/30/24 03:33 650 MG Ceftriaxone Sodium 50 ml @ 100 mls/hr DAILY@09 IV 10/23/24 09:00 11/02/24 08:04 100 MLS/HR Albuterol 2.5 mg Q4HR NEB 10/23/24 06:00 11/02/24 14:26 2.5 MG Ipratropium [place] 0.5 mg Q4HR NEB 10/23/24 06:00 11/02/24 14:26 0.5 MG Enoxaparin Sodium 40 mg DAILY SC 10/24/24 10:00 11/02/24 09:58 40 MG Pantoprazole Sodium 40 mg DAILY IV 10/24/24 10:00 11/02/24 09:58 40 MG Budesonide 0.5 mg BID NEB 10/23/24 22:00 11/02/24 07:02 0.5 MG Thiamine HCl 100 mg DAILY IV 10/26/24 10:00 11/02/24 09:58 100 MG Hydralazine HCl 10 mg Q6HP PRN IV 10/27/24 03:30 11/01/24 09:20 10 MG Chlordiazepoxide HCl 25 mg Q6HR PO 10/27/24 18:00 11/02/24 12:06 25 MG Methylprednisolone Sodium Succinate 40 mg BID IV 10/28/24 22:00 11/02/24 09:58 40 MG Nifedipine 60 mg DAILY PO 10/30/24 10:00 11/02/24 09:59 60 MG Clonidine HCl 0.1 mg Q4HP PRN PO 10/29/24 17:30 Metronidazole 100 ml @ 100 mls/hr Q8HR IV 10/31/24 14:00 11/02/24 13:56 100 MLS/HR Metoclopramide HCl 10 mg Q8HR IV 10/31/24 14:00 11/02/24 14:07 10 MG Lactated Ringer's 1,000 ml @ 100 mls/hr Q10H IV 11/01/24 09:30 11/02/24 11:01 100 MLS/HR Laboratory Results Laboratory Tests 11/02/24 05:07 Chemistry Test 11/02/24 05:07 Albumin 3.7 g/dL (3.2-4.8) Calcium Level 8.2 mg/dL (8.7-10.4) L Total Protein 6.1 g/dL (5.7-8.2) Lipid panel Test 11/02/24 05:07 Lipase 385 U/L (12-53) H LFT Test 11/02/24 05:07 Alanine Aminotransferase (ALT) 242 U/L (7-40) H Alkaline Phosphatase 43 U/L (46-116) L Aspartate Amino Transferase (AST) 80 U/L (13-40) H Total Bilirubin 1.5 mg/dL (0.2-1.0) H Microbiology Microbiology Date/Time Source Procedure Growth Status 10/24/24 09:31 Nose MRSA Screen - Final Complete 10/22/24 11:02 Blood Blood Culture - Final NO GROWTH AFTER 5 DAYS OF INCUBATION. Complete 10/22/24 10:43 Sputum Gram Stain - Final Complete 10/22/24 10:43 Respiratory Culture - Final Haemophilus influenzae Complete Assessment/Plan Assessment/Plan Status post acute respiratory failure with asthma exacerbation and pneumonia with H flu Pancreatitis with elevated lipase/worsening Ileus versus small bowel obstruction Alcoholism Elevated liver function tests Plan: Check hepatitis panel. Repeat lipase and liver tests. NPO again. Liver ultrasound. Further plan per orders Plan discussed with: Patient Date of Service: Nov 02, 2024 Billing Provider: MERRILL BERMAN MD Common Visit Codes: [id number] CARE 30-74 MIN MERRILL BERMAN MD Nov 02, 2024 16:37
--- NOTE | 2024-11-02 18:34 | DVHPN2 ---
Progress Note - Dictate Date Seen: Nov 02, 2024 Has the PT tested + for MRSA If YES, has PT been informed?: No Medical Necessity Reason Pt with a Central, PICC or Fol: Yes The following are medically ne: Mat[place]oros Catheter Reason for matamoros catheter: Strict I&O Subjective Patient seen and examined at bedside. Breathing comfortably on room air Overnight events reviewed. vital signs Vital Sign Date Time Temp Pulse Resp B/P (MAP) Pulse Ox O2 Delivery O2 Flow Rate FiO2 11/02/24 18:13 96 Nasal Cannula 2.0 11/02/24 18:13 28 11/02/24 18:13 66 16 11/02/24 17:15 11/02/24 16:00 97.9 97.9 Total Intake and Output 11/01/24 11/01/24 11/02/24 15:00 23:00 07:00 Intake Total 600 ml 1100 ml 1000 ml Output Total 900 ml 400 ml Balance 600 ml 200 ml 600 ml medications Current Medications Medications Dose Ordered Sig/Chencho Route Start Time Stop Time Status Last Admin Dose Admin Ondansetron HCl 4 mg Q4HP PRN IV 10/22/24 13:45 11/02/24 01:27 4 MG Docusate Sodium 100 mg BIDPRN PRN PO 10/22/24 13:45 10/29/24 23:52 100 MG Acetaminophen 650 mg Q6HP PRN PO 10/22/24 13:45 10/30/24 03:33 650 MG Ceftriaxone Sodium 50 ml @ 100 mls/hr DAILY@09 IV 10/23/24 09:00 11/02/24 08:04 100 MLS/HR Albuterol 2.5 mg Q4HR NEB 10/23/24 06:00 11/02/24 18:13 2.5 MG Ipratropium [place] 0.5 mg Q4HR NEB 10/23/24 06:00 11/02/24 18:13 0.5 MG Enoxaparin Sodium 40 mg DAILY SC 10/24/24 10:00 11/02/24 09:58 40 MG Pantoprazole Sodium 40 mg DAILY IV 10/24/24 10:00 11/02/24 09:58 40 MG Budesonide 0.5 mg BID NEB 10/23/24 22:00 11/02/24 07:02 0.5 MG Thiamine HCl 100 mg DAILY IV 10/26/24 10:00 11/02/24 09:58 100 MG Hydralazine HCl 10 mg Q6HP PRN IV 10/27/24 03:30 11/01/24 09:20 10 MG Chlordiazepoxide HCl 25 mg Q6HR PO 10/27/24 18:00 11/02/24 17:29 25 MG Methylprednisolone Sodium Succinate 40 mg BID IV 10/28/24 22:00 11/02/24 09:58 40 MG Nifedipine 60 mg DAILY PO 10/30/24 10:00 11/02/24 09:59 60 MG Clonidine HCl 0.1 mg Q4HP PRN PO 10/29/24 17:30 Metronidazole 100 ml @ 100 mls/hr Q8HR IV 10/31/24 14:00 11/02/24 13:56 100 MLS/HR Metoclopramide HCl 10 mg Q8HR IV 10/31/24 14:00 11/02/24 14:07 10 MG Lactated Ringer's 1,000 ml @ 100 mls/hr Q10H IV 11/01/24 09:30 11/02/24 11:01 100 MLS/HR objective Gen.: Patient lying in bed in no apparent distress. On room air. Head: Normocephalic, atraumatic. Eyes: EOMI/PERRLA. Ears: Normal hearing. Normal anatomy. Neck/trachea: Trachea midline, supple. Nose: Normal external anatomy. Mouth: Moist mucous membranes. Chest: Decreased air entry bilaterally. No wheezing or rhonchi. Cardiovascular: Positive S1, positive S2. Regular rate and rhythm. Abdomen: Positive bowel sounds in all 4 quadrants. Soft, non-tender, non- distended. : Deferred. Rectal: Deferred. Skin: Warm, dry. Intact. Extremities: 2+ radial pulses bilaterally. No lower extremity edema. Neuro: Awake, alert, oriented x4. No gross motor or sensory deficits. Cranial nerves II through XII intact. Gait not assessed. laboratory and microbiology Laboratory Tests 11/02/24 05:07 Test 11/02/24 05:07 Range/Units Serum Glucose 102 74-106 mg/dL Assessment/Plan Impression: Asthma exacerbation Acute hypoxic respiratory failure Systemic inflammatory response syndrome Pneumonia w/ Haemophilus influenzae Hx of alcohol abuse Hypokalemia Events: Improved O2 requirements Currently breathing on room air Supplemental oxygen PRN No new respiratory complaints. Chest/abdomen x-ray reviewed; no lung base abnormalities. Diffusely dilated loops of small bowel measuring up to 5.8 cm consistent with SBO vs. ileus. Gastroenterology recommendations appreciated. Improving, tolerating liquid diet. On Reglan Continue bronchodilators/Pulmicort Continue steroids - Taper as tolerated Continue antibiotics Physical therapy. Labs and imaging reviewed Plan: S/p extubation on 10/29/24 On supplemental oxygen PRN Titrate to keep O2 sats above 92%. Blood pressure control Steroids Albuterol/Atrovent Antibiotics Nutrition Follow up GI recommendations Monitor renal function Monitor electrolytes. Supplement as necessary. Monitor ins and outs. GI and DVT prophylaxis Prognosis: Poor given patient's multiple co-morbidities. Rest of plan per hospitalist and other consultants. Thank you, MERRITT Mariano, for allowing me to participate in this patient's care. Further recommendations will depend on the patient's clinical course. Please do not hesitate to contact me if you have any questions or concerns. This medical document was created using an electronic medical record system with [employer] dictation system. Although these documentations are being carefully reviewed, there may still be some phonetic and typographical changes. The errors are purely typographical, due to imperfection on the software program, and do not reflect any compromise in the patient's medical care. Dietary Evaluation Review Comments: 1. Pt is on propofol, receiving fat energy 824kcal pt is on sucrose 170kcal from D5W 5% 1000ml out of MVI banan bag, recommend adding clinimix @41ml/hr for his protein needs. This protocol will support pt 1504 kcal, meeting his energy @ 129%, meeting his protein needs @33%. 2. 10/23 lab Mg 28H, consider remove MgSo4 from the MVI banana bag. Expected Outcomes/Goals: Inadeqaute protein support for intubation. Reassess needs when Pt has a more stablized medical condition and or his propofol infusion rate is changed. Plan discussed with: Patient, Other (ISHA Gilliland) CYNTHIA KENT MD Nov 02, 2024 18:34
--- NOTE | 2024-11-02 19:27 | DVH ---
INDICATION: lft TECHNIQUE: Ultrasound gallbladder. Multiple real-time sonographic images of the abdomen were obtaine d. COMPARISON: None FINDINGS: Hepatic parenchyma suggests steatosis The liver measures 16.8 cm. No intrahepatic biliary ductal dilatation is noted. The gallbladder wall measures 0.12 cm and is unremarkable. No gallstones or sludge is seen. The co mmon duct measures 0.47 cm and is unremarkable. No pericholecystic fluid is noted. The right kidney measures 11.5 cm. No hydronephrosis. The pancreas is echogenic suggesting fatty infiltration. The visualized portions of the IVC and aorta are grossly unremarkable. IMPRESSION: 1. 16.8 cm liver with steatosis. 2. Gallbladder normal 3. Echogenic pancreas suggesting fatty infiltration. HS:Y
[2024-11-03] VITALS (34 sets, daily range): BP systolic 108–133; BP diastolic 64–84; PULSE 63–104; RESP 15–30; TEMP 97.7–98.4; O2SAT 88–100
[2024-11-03 04:58] LABS: Basophils # (auto) 0 10 ^3/uL (0-0.2); Basophils % (auto) 0.1 % (0.0-2.0); Eosinophils # (auto) 0.1 10 ^3/uL (0-0.8); Eosinophils % (auto) 0.5 % (0.0-7.0); Hematocrit 38.6 % (41.0-53.0); Hemoglobin 13.3 g/dL (13.5-17.5); Lymphocytes # (auto) 1.4 10 ^3/uL (0.4-5.4); Lymphocytes % (auto) 9.7 % (10.0-50.0); Mean Corpuscular Hemoglobin 30.3 pg (28.0-32.0); Mean Corpuscular Hgb Conc. 34.4 g/dL (32.0-36.0); Monocytes # (auto) 0.9 10 ^3/uL (0-1.3); Monocytes % (auto) 6.7 % (0.0-12.0); Neutrophils # (auto) 11.6 10 ^3/uL (1.6-8.6); Platelet Count (auto) 143 10^3/uL (140-450); Red Blood Cells 4.38 10^6/uL (4.5-5.90); Red Cell Distribution Width 12.5 % (11.8-14.3)
[2024-11-03 05:13] LABS: Albumin 3.3 g/dL (3.2-4.8); Amylase 112 U/L (30-118); Anion Gap 7 (5-15); BUN/Creatinine Ratio 26.4 (10.0-20.0); Blood Urea Nitrogen 19 mg/dL (9-23); Carbon Dioxide 25 mmol/L (20-31); Chloride 106 mmol/L (98-107); Glucose 91 mg/dL (74-106); Potassium 4.3 mmol/L (3.5-5.1); Sodium 138 mmol/L (136-145)
[2024-11-03 05:29] LABS: Alanine Aminotransferase 251 U/L (7-40); Alkaline Phosphatase 41 U/L (46-116); Aspartate Aminotransferase 81 U/L (13-40); Bilirubin, Total 1.4 mg/dL (0.2-1.0); Lipase 283 U/L (12-53); Total Protein 5.5 g/dL (5.7-8.2)
--- NOTE | 2024-11-03 06:11 | DVH ---
CHEST RADIOGRAPH Indication: fu Technique: Single frontal view of the chest was obtained COMPARISON: XY CHEST XRAY 1 VIEW on DOS: 10/29/24, XY CHEST PORTABLE on DOS: 10/28/24, XY CHEST PORTABLE on DOS: 10/27/24, XY CHEST PORTABLE on DOS: 10/26/24, XY CHEST PORTABLE on DOS: 10/25/24 FINDINGS: Lines and Tubes: Status post interval extubation and removal of enteric catheter. Right internal jug ular central venous catheter is unchanged in position. Lungs: Minor bibasilar atelectasis without evidence of consolidation. Pleura: No effusion. No pneumothorax. Cardiomediastinal contours: Unremarkable Bones: Unremarkable IMPRESSION: 1. No acute disease. Minor bibasilar atelectasis. 2. Status post interval extubation and removal of enteric catheter. 3. Right internal jugular central venous catheter unchanged.
--- NOTE | 2024-11-03 15:44 | DVHPN2 ---
Subjective Feels okay. Seated in chair. Walked around earlier. Reviewed: Care Plan, H&P, Labs, Medications, Previous Orders, Radiology, Other (Anodiser) Changes from previous H/P or p: No Changes General: Per HPI Objective Vitals Vital Signs Date Time Temp Pulse Resp B/P (MAP) Pulse Ox O2 Delivery O2 Flow Rate FiO2 11/03/24 14:18 94 19 96 11/03/24 14:10 Nasal Cannula 2.0 11/03/24 14:10 28 11/03/24 10:20 108/75 11/03/24 08:00 98.3 98.3 Intake/Output Intake and Output 11/03/24 07:00 Intake Total 3150 ml Output Total 700 ml Balance 2450 ml Intake Oral 500 ml IV Total 2650 ml Output Urine Total 700 ml # Voids 3 # Bowel Movements 3 General Appearance: Alert, Oriented X3, Cooperative, No acute distress HEENT: Atraumatic Lungs: Other (Few crackles bilateral lungs) Cardiovascular: Regular rate Abdomen: Soft Medications Current Medications Medications Dose Ordered Sig/Chencho Route Start Time Stop Time Status Last Admin Dose Admin Ondansetron HCl 4 mg Q4HP PRN IV 10/22/24 13:45 11/02/24 01:27 4 MG Docusate Sodium 100 mg BIDPRN PRN PO 10/22/24 13:45 10/29/24 23:52 100 MG Acetaminophen 650 mg Q6HP PRN PO 10/22/24 13:45 10/30/24 03:33 650 MG Ceftriaxone Sodium 50 ml @ 100 mls/hr DAILY@09 IV 10/23/24 09:00 11/03/24 09:18 100 MLS/HR Albuterol 2.5 mg Q4HR NEB 10/23/24 06:00 11/03/24 14:10 2.5 MG Ipratropium [place] 0.5 mg Q4HR NEB 10/23/24 06:00 11/03/24 14:10 0.5 MG Enoxaparin Sodium 40 mg DAILY SC 10/24/24 10:00 11/02/24 09:58 40 MG Pantoprazole Sodium 40 mg DAILY IV 10/24/24 10:00 11/03/24 10:19 40 MG Budesonide 0.5 mg BID NEB 10/23/24 22:00 11/03/24 05:57 0.5 MG Thiamine HCl 100 mg DAILY IV 10/26/24 10:00 11/03/24 10:19 100 MG Hydralazine HCl 10 mg Q6HP PRN IV 10/27/24 03:30 11/01/24 09:20 10 MG Chlordiazepoxide HCl 25 mg Q6HR PO 10/27/24 18:00 11/03/24 12:29 25 MG Methylprednisolone Sodium Succinate 40 mg BID IV 10/28/24 22:00 11/03/24 10:19 40 MG Nifedipine 60 mg DAILY PO 10/30/24 10:00 11/03/24 10:20 60 MG Clonidine HCl 0.1 mg Q4HP PRN PO 10/29/24 17:30 Metronidazole 100 ml @ 100 mls/hr Q8HR IV 10/31/24 14:00 11/03/24 14:31 100 MLS/HR Metoclopramide HCl 10 mg Q8HR IV 10/31/24 14:00 11/03/24 14:31 10 MG Lactated Ringer's 1,000 ml @ 100 mls/hr Q10H IV 11/01/24 09:30 11/03/24 10:19 100 MLS/HR Laboratory Results Laboratory Tests 11/03/24 04:30 Chemistry Test 11/03/24 04:30 Albumin 3.3 g/dL (3.2-4.8) Calcium Level 8.0 mg/dL (8.7-10.4) L Total Protein 5.5 g/dL (5.7-8.2) L Lipid panel Test 11/03/24 04:30 Lipase 283 U/L (12-53) H LFT Test 11/03/24 04:30 Alanine Aminotransferase (ALT) 251 U/L (7-40) H Alkaline Phosphatase 41 U/L (46-116) L Aspartate Amino Transferase (AST) 81 U/L (13-40) H Total Bilirubin 1.4 mg/dL (0.2-1.0) H Microbiology Microbiology Date/Time Source Procedure Growth Status 10/24/24 09:31 Nose MRSA Screen - Final Complete 10/22/24 11:02 Blood Blood Culture - Final NO GROWTH AFTER 5 DAYS OF INCUBATION. Complete 10/22/24 10:43 Sputum Gram Stain - Final Complete 10/22/24 10:43 Respiratory Culture - Final Haemophilus influenzae Complete Assessment/Plan Assessment/Plan Status post acute respiratory failure with asthma exacerbation and pneumonia with H flu Pancreatitis with elevated lipase/worsening Ileus versus small bowel obstruction Alcoholism Elevated liver function tests Plan: 11/02/2024: Check hepatitis panel. Repeat lipase and liver tests. NPO again. Liver ultrasound. Further plan per orders 11/03/2024: Repeat CBC and CMP. Repeat lipase. Patient had bowel movement with some diarrhea. Resume p.o. intake with small amount of clear liquid diet for now. Repeat labs. Further plan per orders Plan discussed with: Patient, Other (Nursing) My Orders Orders - MERRILL BERMAN MD Procedure Category Date Status Time Npo Except Ice Chips DEVEN 11/02/24 In Process 16:37 Npo (Nothing By DIET 11/02/24 Transmitted Mouth) Diet Dinner Chest Portable XY 11/03/24 Resulted 06:00 Gallbladder US 11/02/24 Resulted 16:37 Comprehensive LAB 11/02/24 In Process Hepatitis Panel 16:39 Complete Blood Count LAB 11/04/24 Verified 06:00 Comprehensive LAB 11/04/24 Verified Metabolic Panel 06:00 Lipase LAB 11/04/24 Verified 06:00 Date of Service: Nov 03, 2024 Billing Provider: MERRILL BERMAN MD Common Visit Codes: [id number] INP/OBS CARE(HIGH) MERRILL BERMAN MD Nov 03, 2024 15:44
--- NOTE | 2024-11-03 19:54 | DVHPN2 ---
Progress Note - Dictate Date Seen: Nov 03, 2024 Has the PT tested + for MRSA If YES, has PT been informed?: No Medical Necessity Reason Pt with a Central, PICC or Fol: Yes The following are medically ne: Central Line Subjective Patient seen and examined at bedside. Currently on supplemental oxygen Overnight events reviewed. vital signs Vital Sign Date Time Temp Pulse Resp B/P (MAP) Pulse Ox O2 Delivery O2 Flow Rate FiO2 11/03/24 18:41 81 18 98 11/03/24 18:33 Nasal Cannula 2.0 11/03/24 18:33 28 11/03/24 17:00 11/03/24 16:00 98.2 98.2 Total Intake and Output 11/02/24 11/02/24 11/03/24 15:00 23:00 07:00 Intake Total 950 ml 1100 ml 1100 ml Output Total 700 ml Balance 950 ml 400 ml 1100 ml medications Current Medications Medications Dose Ordered Sig/Chencho Route Start Time Stop Time Status Last Admin Dose Admin Ondansetron HCl 4 mg Q4HP PRN IV 10/22/24 13:45 11/02/24 01:27 4 MG Docusate Sodium 100 mg BIDPRN PRN PO 10/22/24 13:45 10/29/24 23:52 100 MG Acetaminophen 650 mg Q6HP PRN PO 10/22/24 13:45 10/30/24 03:33 650 MG Ceftriaxone Sodium 50 ml @ 100 mls/hr DAILY@09 IV 10/23/24 09:00 11/03/24 09:18 100 MLS/HR Albuterol 2.5 mg Q4HR NEB 10/23/24 06:00 11/03/24 18:33 2.5 MG Ipratropium [place] 0.5 mg Q4HR NEB 10/23/24 06:00 11/03/24 18:33 0.5 MG Enoxaparin Sodium 40 mg DAILY SC 10/24/24 10:00 11/02/24 09:58 40 MG Pantoprazole Sodium 40 mg DAILY IV 10/24/24 10:00 11/03/24 10:19 40 MG Budesonide 0.5 mg BID NEB 10/23/24 22:00 11/03/24 05:57 0.5 MG Thiamine HCl 100 mg DAILY IV 10/26/24 10:00 11/03/24 10:19 100 MG Hydralazine HCl 10 mg Q6HP PRN IV 10/27/24 03:30 11/01/24 09:20 10 MG Chlordiazepoxide HCl 25 mg Q6HR PO 10/27/24 18:00 11/03/24 17:52 25 MG Methylprednisolone Sodium Succinate 40 mg BID IV 10/28/24 22:00 11/03/24 10:19 40 MG Nifedipine 60 mg DAILY PO 10/30/24 10:00 11/03/24 10:20 60 MG Clonidine HCl 0.1 mg Q4HP PRN PO 10/29/24 17:30 Metronidazole 100 ml @ 100 mls/hr Q8HR IV 10/31/24 14:00 11/03/24 14:31 100 MLS/HR Metoclopramide HCl 10 mg Q8HR IV 10/31/24 14:00 11/03/24 14:31 10 MG Lactated Ringer's 1,000 ml @ 100 mls/hr Q10H IV 11/01/24 09:30 11/03/24 10:19 100 MLS/HR objective Gen.: Patient lying in bed in no apparent distress. On supplemental oxygen Head: Normocephalic, atraumatic. Eyes: EOMI/PERRLA. Ears: Normal hearing. Normal anatomy. Neck/trachea: Trachea midline, supple. Nose: Normal external anatomy. Mouth: Moist mucous membranes. Chest: Decreased air entry bilaterally. No wheezing or rhonchi. Cardiovascular: Positive S1, positive S2. Regular rate and rhythm. Abdomen: Positive bowel sounds in all 4 quadrants. Soft, non-tender, non- distended. : Deferred. Rectal: Deferred. Skin: Warm, dry. Intact. Extremities: 2+ radial pulses bilaterally. No lower extremity edema. Neuro: Awake, alert, oriented x4. No gross motor or sensory deficits. Cranial nerves II through XII intact. Gait not assessed. laboratory and microbiology Laboratory Tests 11/03/24 04:30 Test 11/03/24 04:30 Range/Units Serum Glucose 91 74-106 mg/dL Assessment/Plan Impression: Asthma exacerbation Acute hypoxic respiratory failure Systemic inflammatory response syndrome Pneumonia w/ Haemophilus influenzae Hx of alcohol abuse Hypokalemia Events: Currently on supplemental oxygen 2 LPM NC Taper O2 as tolerated Patient is improving Chest x-ray reviewed; minor bibasilar atelectasis. On Reglan Clear liquid diet IV fluids with LR at 100 ml/hr Continue bronchodilators/Pulmicort Continue steroids - Taper as tolerated Continue antibiotics Physical therapy. Labs and imaging reviewed Plan: S/p extubation on 10/29/24 On supplemental oxygen Titrate to keep O2 sats above 92%. Blood pressure control Steroids Albuterol/Atrovent Antibiotics Nutrition Follow up GI recommendations Monitor renal function Monitor electrolytes. Supplement as necessary. Monitor ins and outs. GI and DVT prophylaxis Prognosis: Guarded given patient's multiple co-morbidities. Rest of plan per hospitalist and other consultants. Thank you, MERRITT Mariano, for allowing me to participate in this patient's care. Further recommendations will depend on the patient's clinical course. Please do not hesitate to contact me if you have any questions or concerns. This medical document was created using an electronic medical record system with [employer] system. Although these documentations are being carefully reviewed, there may still be some phonetic and typographical changes. The errors are purely typographical, due to imperfection on the software program, and do not reflect any compromise in the patient's medical care. Dietary Evaluation Review Comments: 1. Pt is on propofol, receiving fat energy 824kcal pt is on sucrose 170kcal from D5W 5% 1000ml out of MVI banan bag, recommend adding clinimix @41ml/hr for his protein needs. This protocol will support pt 1504 kcal, meeting his energy @ 129%, meeting his protein needs @33%. 2. 10/23 lab Mg 28H, consider remove MgSo4 from the MVI banana bag. Expected Outcomes/Goals: Inadeqaute protein support for intubation. Reassess needs when Pt has a more stablized medical condition and or his propofol infusion rate is changed. Plan discussed with: Patient, Other (ISHA Urban) CYNTHIA KENT MD Nov 03, 2024 19:54
[2024-11-04] VITALS (18 sets, daily range): BP systolic 108–138; BP diastolic 63–80; PULSE 72–125; RESP 14–22; TEMP 98.2–98.5; O2SAT 90–100
[2024-11-04 05:47] LABS: Basophils # (auto) 0 10 ^3/uL (0-0.2); Basophils % (auto) 0.2 % (0.0-2.0); Eosinophils # (auto) 0.1 10 ^3/uL (0-0.8); Eosinophils % (auto) 0.4 % (0.0-7.0); Hematocrit 37.7 % (41.0-53.0); Hemoglobin 13.1 g/dL (13.5-17.5); Lymphocytes # (auto) 1.5 10 ^3/uL (0.4-5.4); Lymphocytes % (auto) 9.3 % (10.0-50.0); Mean Corpuscular Hemoglobin 30.5 pg (28.0-32.0); Mean Corpuscular Hgb Conc. 34.9 g/dL (32.0-36.0); Mean Corpuscular Volume 87.6 fL (80.0-100.0); Monocytes % (auto) 5.9 % (0.0-12.0); Neutrophils # (auto) 13.8 10 ^3/uL (1.6-8.6); Neutrophils % (auto) 84.2 % (37.0-80.0); Platelet Count (auto) 147 10^3/uL (140-450); Red Blood Cells 4.31 10^6/uL (4.5-5.90); Red Cell Distribution Width 12.3 % (11.8-14.3); White Blood Cell 16.4 10^3/uL (4.4-10.8)
[2024-11-04 06:02] LABS: Anion Gap 8 (5-15); BUN/Creatinine Ratio 20.3 (10.0-20.0); Blood Urea Nitrogen 16 mg/dL (9-23); Carbon Dioxide 26 mmol/L (20-31); Chloride 106 mmol/L (98-107); Glucose 90 mg/dL (74-106); Sodium 140 mmol/L (136-145)
[2024-11-04 06:03] LABS: Albumin 3.3 g/dL (3.2-4.8)
[2024-11-04 06:12] LABS: Alanine Aminotransferase 204 U/L (7-40); Alkaline Phosphatase 43 U/L (46-116); Aspartate Aminotransferase 45 U/L (13-40); Calcium 8.7 mg/dL (8.7-10.4); Total Protein 5.4 g/dL (5.7-8.2)
[2024-11-04 07:07] LABS: Lipase 241 U/L (12-53)
[2024-11-04 10:12] LABS: Hepatitis B Core Total AB Negative (Negative)
[2024-11-04 11:17] LABS: Hepatitis A Total Antibody Positive (Negative); Hepatitis B Surface Antibody Negative (Negative); Hepatitis B Surface Antigen Negative (Negative)
[2024-11-04 11:18] LABS: Hepatitis C Antibody Negative (Negative)
--- NOTE | 2024-11-04 14:02 | DVHPN2 ---
Subjective Patient denies any symptoms. Reports of vomiting yesterday evening. Reviewed: Care Plan, H&P, Labs, Medications, Previous Orders, Radiology, Other (Service Desk Team Lead) Changes from previous H/P or p: No Changes General: Per HPI Objective Vitals Vital Signs Date Time Temp Pulse Resp B/P (MAP) Pulse Ox O2 Delivery O2 Flow Rate FiO2 11/04/24 13:51 95 Room Air 11/04/24 13:51 0 21 11/04/24 13:51 111 14 11/04/24 11:52 122/74 11/04/24 09:00 98.4 98.4 Intake/Output Intake and Output 11/04/24 07:00 Intake Total 3250 ml Output Total 1375 ml Balance 1875 ml Intake Oral 800 ml IV Total 2450 ml Output Urine Total 1375 ml # Voids 4 # Bowel Movements 3 General Appearance: Alert, Oriented X3, Cooperative, No acute distress HEENT: Atraumatic, PERRLA Lungs: Other (Few crackles bilateral lungs) Cardiovascular: Regular rate Abdomen: Soft Skin: Dry, Intact Medications Current Medications Medications Dose Ordered Sig/[place] Route Start Time Stop Time Status Last Admin Dose Admin Ondansetron HCl 4 mg Q4HP PRN IV 10/22/24 13:45 11/02/24 01:27 4 MG Docusate Sodium 100 mg BIDPRN PRN PO 10/22/24 13:45 10/29/24 23:52 100 MG Acetaminophen 650 mg Q6HP PRN PO 10/22/24 13:45 10/30/24 03:33 650 MG Ceftriaxone Sodium 50 ml @ 100 mls/hr DAILY@09 IV 10/23/24 09:00 11/04/24 10:37 100 MLS/HR Albuterol 2.5 mg Q4HR NEB 10/23/24 06:00 11/04/24 13:51 2.5 MG Ipratropium [place] 0.5 mg Q4HR NEB 10/23/24 06:00 11/04/24 13:51 0.5 MG Enoxaparin Sodium 40 mg DAILY SC 10/24/24 10:00 11/02/24 09:58 40 MG Pantoprazole Sodium 40 mg DAILY IV 10/24/24 10:00 11/04/24 10:37 40 MG Budesonide 0.5 mg BID NEB 10/23/24 22:00 11/04/24 06:35 0.5 MG Thiamine HCl 100 mg DAILY IV 10/26/24 10:00 11/04/24 10:37 100 MG Hydralazine HCl 10 mg Q6HP PRN IV 10/27/24 03:30 11/01/24 09:20 10 MG Chlordiazepoxide HCl 25 mg Q6HR PO 10/27/24 18:00 11/04/24 11:52 25 MG Methylprednisolone Sodium Succinate 40 mg BID IV 10/28/24 22:00 11/04/24 10:38 40 MG Nifedipine 60 mg DAILY PO 10/30/24 10:00 11/04/24 11:52 60 MG Clonidine HCl 0.1 mg Q4HP PRN PO 10/29/24 17:30 Metronidazole 100 ml @ 100 mls/hr Q8HR IV 10/31/24 14:00 11/04/24 05:43 100 MLS/HR Metoclopramide HCl 10 mg Q8HR IV 10/31/24 14:00 11/04/24 05:43 10 MG Lactated Ringer's 1,000 ml @ 100 mls/hr Q10H IV 11/01/24 09:30 11/03/24 21:28 100 MLS/HR Laboratory Results Laboratory Tests 11/04/24 05:29 Chemistry Test 11/04/24 05:29 Albumin 3.3 g/dL (3.2-4.8) Calcium Level 8.7 mg/dL (8.7-10.4) Total Protein 5.4 g/dL (5.7-8.2) L Lipid panel Test 11/04/24 05:29 Lipase 241 U/L (12-53) H LFT Test 11/04/24 05:29 Alanine Aminotransferase (ALT) 204 U/L (7-40) H Alkaline Phosphatase 43 U/L (46-116) L Aspartate Amino Transferase (AST) 45 U/L (13-40) H Total Bilirubin 1.0 mg/dL (0.2-1.0) Microbiology Microbiology Date/Time Source Procedure Growth Status 10/24/24 09:31 Nose MRSA Screen - Final Complete 10/22/24 11:02 Blood Blood Culture - Final NO GROWTH AFTER 5 DAYS OF INCUBATION. Complete 10/22/24 10:43 Sputum Gram Stain - Final Complete 10/22/24 10:43 Respiratory Culture - Final Haemophilus influenzae Complete Labs and/or images reviewed: Labs reviewed by me, Image(s) reviewed by me Assessment/Plan Assessment/Plan Impression: -acute asthma exacerbation -acute hypoxic and hypercarbic respiratory failure -sirs -history of alcoholism -community-acquired pneumonia with Haemophilus influenzae -acute delirium -constipation -ileus Plan: Events: Patient denies any symptoms at this time. Patient is assessed, sitting in a chair. Abdominal distention improved. Reports bowel movements. Tolerating clear liquid diet. -advanced to mechanical soft diet monitor pain she is -weaned down Solu-Medrol -DuoNebs q.6 hours while awake -physical therapy -continue antibiotic therapy at this time -stop IV Reglan -Repeat KUB -DME: Walker -reassess for discharge in a.m. Total time spent with patient discussing and formulating plan of care: 35 minutes. This medical document was created using an electronic medical record system with [employer] dictation system. Although this document has been carefully reviewed, there may still be some phonetic and typographical errors. These areas are purely typographical due to imperfections of the software programs, and do not reflect any compromise in the patient's medical care. Plan discussed with: Patient, Other (RN) My Orders Orders - RAMA BENOIT NP Procedure Category Date Status Time Kub Abdomen Single XY 11/04/24 Taken View 09:51 Albuterol Medneb PHA 11/04/24 Verified (Ventolin Medneb) 18:00 Ipratropium Med[place] PHA 11/04/24 Verified (Atrovent Medneb) 18:00 Methylprednisolone PHA 11/05/24 Verified Sod Succ (Solu Medrol 10:00 Thiamine Tab PHA 11/05/24 Verified 10:00 Mechanical Soft Diet DIET 11/04/24 Verified Dinner Date of Service: Nov 04, 2024 Billing Provider: RAMA BENOIT NP Common Visit Codes: [id number] INP/OBS CARE(HIGH) RAMA BENOIT NP Nov 04, 2024 14:02
--- NOTE | 2024-11-04 14:03 | DVH ---
Date: 11/04/2024 12:48 PM Examination: XY KUB ABDOMEN SINGLE VIEW History: ileus Comparison: XY KUB ABDOMEN SINGLE VIEW on DOS: 11/01/24, XY KUB ABDOMEN SINGLE VIEW on DOS: 10/30/24 TECHNIQUE: Frontal views of the abdomen was obtained. FINDINGS: Diffusely dilated loops of small bowel measuring up to 5 cm The lung bases are unremarkable. No acute osseous abnormality identified. IMPRESSION: Diffusely dilated loops of small bowel measuring up to 5 cm Findings could represent small bowel obstruction versus ileus.
[2024-11-04] MEDS ORDERED: ALBU108A5 IN (14:24)
[2024-11-04] MEDS ORDERED: METH4PAK PO (14:24)
[2024-11-04] MEDS ORDERED: BECL40AE11 IN (14:24)
[2024-11-04] MEDS: ALBUTEROL SULF 2.5 MG/0.5ML(0.5%) NEB SOLN NEB SCH (19:36)
[2024-11-04] MEDS: IPRATROPIUM BROM 0.5 MG/2.5ML INH SOL NEB SCH (19:37)
[2024-11-05] VITALS (9 sets, daily range): BP systolic 108–122; BP diastolic 56–82; PULSE 92–114; RESP 16–18; TEMP 36.8; O2SAT 93–100
[2024-11-05] MEDS: IPRATROPIUM BROM 0.5 MG/2.5ML INH SOL ONE (05:36)
[2024-11-05] MEDS: ALBUTEROL SULF 2.5 MG/0.5ML(0.5%) NEB SOLN ONE (05:36)
[2024-11-05] MEDS: methylPREDNISolone SOD SUCC 40 MG/ML VL IV SCH (10:12)
[2024-11-05] MEDS: THIAMINE HCL 100 MG TAB PO SCH (10:12)
--- NOTE | 2024-11-05 10:31 | DVHDS2 ---
Discharge Summary Date of Admission October 22, 2024 at 13:17 Date of Discharge: Nov 05, 2024 Admitting Diagnosis Acute asthma exacerbation Labs/Diagnostic Data: Laboratory Results Test 11/04/24 05:29 11/03/24 04:30 11/02/24 05:07 11/01/24 11:59 White Blood Count 16.4 10^3/uL (4.4-10.8) Red Blood Count 4.31 10^6/uL (4.5-5.90) Hemoglobin 13.1 g/dL (13.5-17.5) Hematocrit 37.7 % (41.0-53.0) Mean Corpuscular Volume 87.6 fL (80.0-100.0) Mean Corpuscular Hemoglobin 30.5 pg (28.0-32.0) Mean Corpuscular Hemoglobin Concent 34.9 g/dL (32.0-36.0) Red Cell Distribution Width 12.3 % (11.8-14.3) Platelet Count 147 10^3/uL (140-450) Mean Platelet Volume 8.3 fL (6.9-10.8) Neutrophils (%) (Auto) 84.2 % (37.0-80.0) Lymphocytes (%) (Auto) 9.3 % (10.0-50.0) Monocytes (%) (Auto) 5.9 % (0.0-12.0) Eosinophils (%) (Auto) 0.4 % (0.0-7.0) Basophils (%) (Auto) 0.2 % (0.0-2.0) Neutrophils # (Auto) 13.8 10 ^3/uL (1.6-8.6) Lymphocytes # (Auto) 1.5 10 ^3/uL (0.4-5.4) Monocytes # (Auto) 1.0 10 ^3/uL (0-1.3) Eosinophils # (Auto) 0.1 10 ^3/uL (0-0.8) Basophils # (Auto) 0 10 ^3/uL (0-0.2) Nucleated Red Blood Cells 0.0 % Sodium Level 140 mmol/L (136-145) Potassium Level 4.0 mmol/L (3.5-5.1) Chloride Level 106 mmol/L (98-107) Carbon Dioxide Level 26 mmol/L (20-31) Anion Gap 8 (5-15) Blood Urea Nitrogen 16 mg/dL (9-23) Creatinine 0.79 mg/dL (0.700-1.30) Glomerular Filtration Rate Calc 120 mL/min (>90) BUN/Creatinine Ratio 20.3 (10.0-20.0) Serum Glucose 90 mg/dL (74-106) Calcium Level 8.7 mg/dL (8.7-10.4) Total Bilirubin 1.0 mg/dL (0.2-1.0) Aspartate Amino Transferase (AST) 45 U/L (13-40) Alanine Aminotransferase (ALT) 204 U/L (7-40) Alkaline Phosphatase 43 U/L (46-116) Total Protein 5.4 g/dL (5.7-8.2) Albumin 3.3 g/dL (3.2-4.8) Lipase 241 U/L (12-53) Amylase Level 112 U/L (30-118) Hepatitis A Antibody Total Positive (Negative) Hepatitis B Surface Antigen Negative (Negative) Hepatitis B Surface Antibody Negative (Negative) Hepatitis B Core Total Antibody Negative (Negative) Hepatitis C Antibody Negative (Negative) POC Glucose 128 mg/dl (70-106) Test 11/01/24 03:15 10/30/24 03:11 10/29/24 10:15 10/29/24 06:47 Magnesium Level 2.3 mg/dL (1.6-2.6) Differential Total Cells Counted 100.0 (100) Neutrophils % (Manual) 87 (37.0-80.0) Band Neutrophils % (Manual) 2 Lymphocytes % (Manual) 9 (10.0-50.0) Monocytes % (Manual) 2 (0-12) Eosinophils % (Manual) 0 (0-7) Basophils % (Manual) 0 (0.0-2.0) Metamyelocytes % (manual) 0 Myelocytes % (Manual) 0 Promyelocytes % (Manual) 0 Blast Cells % (Manual) 0 Reactive Lymphocytes 0 Platelet Estimate Adequate Blood Gas Specimen Type Arterial Blood Gas Sample Site Right radial Blood Gas Patient Temperature 37.0 Arterial Blood Date Drawn [id number] Arterial Blood pH 7.495 (7.350-7.450) Arterial Blood Partial Pressure CO2 34.5 mmHg (35.0-48.0) Arterial Blood Partial Pressure O2 60.7 mmHg (83.0-108.0) Arterial Blood HCO3 26.0 mmol/L (21.0-28.0) Arterial Blood Oxygen Saturation 91.5 % (94.0-98.0) Arterial Blood Base Excess 3.2 mmol/L (-2.0-3.0) Arterial Blood Oxyhemoglobin 90.9 % (94.0-98.0) Arterial Blood Carboxyhemoglobin 0.4 % (0.5-1.5) Arterial Blood Methemoglobin 0.3 % (0.0-1.5) [facility] Test Modified Blood Gas Total Hemoglobin 15.50 g/dL (13.5-17.5) Blood Gas Modality Vent - cpap FiO2 % 35.0 Blood Gas Pressure Support 8 Blood Gas PEEP or CPAP 5.0 Blood Gas Set Respiration Rate 20.0 Blood Gas Tidal Volume 500.0 Test 10/26/24 07:11 10/25/24 12:10 10/24/24 22:10 10/24/24 18:23 Blood Gas Critical Value Read Back yes Blood Gas Notified Whom claude lara md Blood Gas Notified Time [id number] Blood Gas Notified By graeme freeman rrt Random Vancomycin Level 8.7 ug/mL (5-10) Vancomycin Level Trough 27.5 ug/mL (5-10) Specimen Drawn By Test 10/24/24 06:17 10/22/24 14:00 10/22/24 12:52 10/22/24 12:30 Blood Gas Spontaneous Rate 14 Influenza Type A Antigen Negative (Negative) Influenza Type B Antigen Negative (Negative) SARS-CoV-2 Antigen (Rapid) Negative (NEGATIVE) Troponin I High Sensitivity 11 ng/L (</=54) Plasma/Serum Blood Alcohol < 3.0 mg/dL (<10) Urine Opiates Screen Neg (NEGATIVE) Urine Fentanyl Screen Neg (NEGATIVE) Urine Barbiturates Screen Neg (NEGATIVE) Urine Phencyclidine Screen Neg (NEGATIVE) Urine Amphetamines Screen Neg (NEGATIVE) Urine Benzodiazepines Screen Neg (NEGATIVE) Urine Cocaine Screen Neg (NEGATIVE) Urine Cannabinoids Screen Neg (NEGATIVE) Test 10/22/24 11:02 Lactic Acid Level 1.9 mmol/L (0.4-2.0) Other Laboratory Tests 11/04/24 05:29 Brief Hx & Hospital Course: History of Present Illness Yaw Sae is a 34-year-old male with past medical history of asthma, who was brought in by EMS for shortness of breath. When patient arrived to the ER he was sitting the in the treatment area receiving a breathing treatment. He was having increased work of breathing, using accessory muscles, tripoding, and diaphoretic. He was placed on a non-rebreather mask, taken to bed, and was then intubated shortly after arriving in the bed. Family states that the patient had childhood asthma, but has not had a problem with his asthma for over 20 years until recently. In August the entire family got a cold. The sister states it hit him and her younger brother the worst. The patient was seen here in August for shortness of breath. He was given breathing treatments and prescriptions and sent home. She states he was doing better for a while but then his shortness of breath worsened. She also stated that he doesn't take the best care of him self and that he is a heavy whiskey drinker. She states he drinks at least 3 x week. Sometimes it is just a couple drinks and other times it is an entire bottle. Course of hospitalization: Patient's respiratory status diminished, requiring mechanical ventilation. Patient had increased peak pressures with hypercarbia. Patient did require advanced treatment for his asthma exacerbation including paralytics as well as ketamine infusion. Patient was also maximize with IV steroids, bronchodilators. Patient's respiratory status improved. Patient was successfully extubated with respiratory status having no signs of deterioration after being extubated. Post extubation, patient was noted to have ileus which resolved with Protonix. Patient is now tolerating oral intake. He will be discharged home now that he is ambulating, tolerating oral intake, as well as having bowel movements. He will be placed on a Medrol Dosepak, QVAR, as well as being prescribed a rescue inhaler. He will follow up with the discharge Clinic in one week as instructed to follow up with his PCP once his HMO has been establishing with the 1st of the month. He is agreeable with discharge plan. All questions answered. Physical exam General: Alert and Oriented x3. No acute distress. Well-nourished. Eyes: EOMI. Anicteric. HENT: Moist mucous membranes. Lungs: Clear to auscultation bilaterally. No accessory muscle use. Cardiovascular: Regular rate and rhythm. No murmur. No JVD. Abdomen: Soft, non-tender and non-distended. No palpable masses. Extremities: No edema. Non-tender. Skin: No rashes or lesions. Warm. Neurologic: No focal neurological deficits. CN II-XII grossly intact, but not individually tested. Psychiatric: Cooperative. Appropriate mood and affect. Total time spent with patient discussing and formulating plan of care: 35 minutes. This medical document was created using an electronic medical record system with [employer] dictation system. Although this document has been carefully reviewed, there may still be some phonetic and typographical errors. These areas are purely typographical due to imperfections of the software programs, and do not reflect any compromise in the patient's medical care. Consults/Reason for consult Pulmonology: Acute respiratory failure Condition at Discharge: Fair Final Diagnosis/Problems List Acute hypoxic and hypercarbic respiratory failure Secondary diagnosis: -acute asthma exacerbation -acute hypoxic and hypercarbic respiratory failure -sirs -history of alcoholism -community-acquired pneumonia with Haemophilus influenzae -acute delirium -constipation -ileus Discharge Disposition: Home Discharge Instruct/Medications Diet: Regular Activity: No Restrictions, As Tolerated Follow Up/Referral: Discharge Clinic in one week Medications: Medrol Dosepak QVAR one puff b.i.d. Albuterol one puff q.4 hours as needed for acute shortness of breath 36 Discharge Statement: "Patient was advised to return to the ER or call 911 if any headaches, dizziness, shortness of breath, chest pain, abdominal pain, bleeding, fevers, or worsening of medical condition. Patient was counseled about treatment plan, medications, possible side effects, patientverbalized understanding. All questions were answered to the best of my ability. This discharge took greater then 30 minutes in planning, reviewing documentation, counseling the patient, and discussing with other team members." DME: Diagnosis: Acute Respiratory Failure ASSESSMENT ASSESSMENT Assessment Acute hypoxic and hypercarbic respiratory failure Date of Service: Nov 05, 2024 Billing Provider: RAMA BENOIT NP Common Visit Codes: 53838-VTE/OBS DISCH DAY >30min RAMA BENOIT NP Nov 05, 2024 10:31
== END 2024-11-05 14:55 | disposition home or self-care (01) | DRG 130 ==
LOC: EDBD 09:26 → ER 09:26 → OVERFLOW 13:17 → ER 13:21 → ICU WEST 10-24 08:12 → DOU IN ICU 11-02 01:20 → TELE-EAST 11-03 22:40
PROVIDERS: ADMIT Nurse Practitioner Acute Care; ATTEND Nurse Practitioner Acute Care
PROC: 5A1955Z Respiratory Ventilation, Greater than 96 Consecutive Hours (ICD-10-PCS; principal; 2024-10-22)
PROC: 0BH18EZ Insertion of Endotracheal Airway into Trachea, Via Natural or Artificial Opening Endoscopic (ICD-10-PCS; 2024-10-22)
PROC: 02HV33Z Insertion of Infusion Device into Superior Vena Cava, Percutaneous Approach (ICD-10-PCS; 2024-10-22)
DX: J96.01 Acute respiratory failure with hypoxia (principal); R65.11 Systemic inflammatory response syndrome (SIRS) of non-infectious origin with acute organ dysfunction; J14 Pneumonia due to Hemophilus influenzae; E87.3 Alkalosis; K56.7 Ileus, unspecified; J45.41 Moderate persistent asthma with (acute) exacerbation; J96.02 Acute respiratory failure with hypercapnia; G83.9 Paralytic syndrome, unspecified; F10.20 Alcohol dependence, uncomplicated; Z20.822 Contact with and (suspected) exposure to COVID-19; E87.6 Hypokalemia; K59.00 Constipation, unspecified; R00.0 Tachycardia, unspecified; R79.89 Other specified abnormal findings of blood chemistry; Z91.012 Allergy to eggs
CPT/HCPCS: 31500; 36415; 36556; 36600; 70450; 71045; 71250; 74018; 74176; 76705; 80048; 80053; 80202; 80307; 80320; 82150; 82565; 82805; 82962; 83605; 83690; 83735; 84484; 85007; 85025; 85027; 86704; 86706; 86708; 86803; 87040; 87070; 87077; 87081; 87205; 87340; 87426; 87804; 93005; 94002; 94003; 94640; 96365; 96375; 97110; 97116; 97163; 97530; 99291; 99292; G0378; J2405; J2470; J2704; J3480; J3490; J7060